=== PATIENT | female | born 1980 | race African-American/Black ===

== ENCOUNTER 2021-02-07 19:08 | Emergency (ER) | payer OTHER, SELFPAY ==
--- NOTE | ~2021-02-07 | XR_ITS ---
XR chest 1V portable DATE: 02/07/2021 20:12 INDICATION: Shortness of breath, cough, worsening over past 3 days. Covid. TECHNIQUE: Portable upright AP chest on 02/07/2021 COMPARISON: None FINDINGS: There are patchy bilateral pulmonary infiltrates involving the mid and lower lung zones, le ft greater than right, consistent with multifocal bilateral pneumonia, likely secondary to Covid pneu monia. No pleural effusion or pulmonary vascular congestion or pneumothorax is detected. Heart size appears normal. Included skeletal structures are unremarkable. IMPRESSION: Patchy bilateral pulmonary infiltrates, likely secondary to Covid pneumonia Reviewed, dictated and finalized at [facility]. IMPRESSION: Patchy bilateral pulmonary infiltrates, likely secondary to Covid p neumonia
[2021-02-07 19:20] VITALS: BP 149/87; PULSE 86; RESP 19; TEMP 36.8; O2SAT 98
--- NOTE | 2021-02-07 19:43 | ED.GENADULT ---
HPI - General Adult General Chief complaint: Shortness of Breath/Dyspnea Stated complaint: diff breathing/covid x 9 days Time Seen by Provider: 02/07/21 19:42 Source: patient Mode of arrival: ambulatory Limitations: no limitations History of Present Illness HPI narrative: Patient is here and very anxious regarding her Covid symptoms. She has a persistent cough that is productive. She states that she is afraid to lay down to sleep at night. Her primary symptoms are cough and loss of taste, she has no fever. Her oxygen level was within normal limits here. She has been taking [id number] medications such as Mucinex and cough syrup. She has no primary care physician. Related Data Allergies Allergy/AdvReac Type Severity Reaction Status Date / Time No Known Allergies Allergy Verified 02/07/21 19:45 Review of Systems Review of Systems: All systems reviewed & are unremarkable except as noted in HPI and below PMFSH Social History Social History Gender identity (if verbalized by the patient): Female Exam Const: General: healthy appearing and alert Nutritional Appearance: obese Orientation/consciousness: patient oriented x3 Other: Anxious HENMT: Head: normal to inspection Eyes: Pupils: Equal, round and reactive pupils present Resp: Effort & Inspection: labored Auscultation: clear to auscultation bilaterally Cardio: Rate: regular rate Rhythm: regular rhythm Skin: General skin exam: normal color Neuro: General: patient oriented x3 Extrem: General: normal to inspection Psych: Affect: Anxious affect present Course Course Emergency Course: CXR consistent with COVID pneumonia. Will instruct in use of albuterol inhaler and order Decadron. Vital Signs Vital signs: Vital Signs Temperature 36.8 C 02/07/21 19:20 Pulse Rate 86 02/07/21 19:20 Respiratory Rate 19 02/07/21 19:20 Blood Pressure 149/87 H 02/07/21 19:20 Pulse Oximetry 98 02/07/21 19:20 Temperature 36.8 C 02/07/21 19:20 Pulse Rate 86 02/07/21 19:20 Respiratory Rate 19 02/07/21 19:20 Blood Pressure 149/87 H 02/07/21 19:20 Pulse Oximetry 98 02/07/21 19:20 Medical Decision Making Vital Signs Vital Signs: Vital Signs Temperature 36.8 C 02/07/21 19:20 Pulse Rate 86 02/07/21 19:20 Respiratory Rate 19 02/07/21 19:20 Blood Pressure 149/87 H 02/07/21 19:20 Pulse Oximetry 98 02/07/21 19:20 Temperature 36.8 C 02/07/21 19:20 Pulse Rate 86 02/07/21 19:20 Respiratory Rate 19 02/07/21 19:20 Blood Pressure 149/87 H 02/07/21 19:20 Pulse Oximetry 98 02/07/21 19:20 Discharge Plan Discharge Clinical Impression: Pneumonia due to 2019 novel coronavirus Patient Disposition: Home, Self-Care Condition: Improved Instructions: Antibiotic Form, COVID-19 (Coronavirus Disease 2019) (ED) Additional Instructions: Continue to use good hand hygiene and cover your face when you are around people who are not positive. Use your inhaler every 4-6 hours for the next 24 hours then as needed for shortness of breath, use as directed on the prescription and with your spacer. Complete your Decadron course. Follow-up with your primary care physician, if you do not have one I have listed 1 below for you to call and establish primary care. Prescriptions: New albuterol sulfate 90 mcg/actuation HFA aerosol inhaler 2 puff inhalation QID PRN (Reason: shortness of breath or wheezing) Qty: 8.5 RF: 0 dexamethasone [Decadron] 6 mg tablet 6 mg PO DAILY Qty: 5 RF: 0 Follow-up/Referrals: Jefry Best MD [Physician] - PHYSICIAN,CONFIGURATION MANAGEMENT CONSULTANT [Primary Care Provider] - Time of Disposition: 21:00
[2021-02-07 19:56] VITALS: O2SAT 99
[2021-02-07] MEDS: ALBUTEROL SULFATE NEB 2.5 MG/3 ML INH INHALATION (20:54)
[2021-02-07 20:55] VITALS: PULSE 68; RESP 24
[2021-02-07 21:13] VITALS: BP 137/96; PULSE 87; RESP 14; TEMP 36.6; O2SAT 98
== END 2021-02-07 21:16 | disposition home or self-care (01) ==
PROVIDERS: Emergency Provider Family Medicine
DX: U07.1 COVID-19 (principal); J12.82 Pneumonia due to coronavirus disease 2019
CPT/HCPCS: 71045; 94640; 99283

== ENCOUNTER 2021-03-05 08:44 | Outpatient (CLI) | payer OTHER, SELFPAY ==
--- NOTE | ~2021-03-05 | MM_ITS ---
EXAMINATION: MM screening radha BI w jolie HISTORY: Screening TECHNIQUE: Craniocaudal and mediolateral oblique 3-D tomosynthesis images were obtained and synthetic 2-D images were generated. CAD analysis was submitted and interpreted. COMPARISON: No prior mammogram is available for comparison at this institution. BREAST PARENCHYMAL COMPOSITION: There are scattered areas of fibroglandular density. FINDINGS: There is no mammographic evidence for malignancy in the right breast. There are focal asymm etries in the upper outer quadrant of the left breast with adjacent architectural distortion. IMPRESSION: 1. Focal left breast asymmetries with adjacent architectural distortion, upper outer quadrant of the left breast, middle third. 2. Additional mammographic views and possible breast ultrasound are recommended. BI-RADS Category 0: Incomplete: Needs additional imaging evaluation. Reviewed, dictated and finalized at location [facility]. IMPRESSION: 1. Focal left breast asymmetries with adjacent architectural distortion, upper outer quadrant of the left breast, middle third. 2. Additional mammographic views and possible breast ultrasound are recommended . BI-RADS Category 0: Incomplete: Needs additional imaging evaluation.
== END 2021-03-05 08:45 | disposition home or self-care (01) ==
LOC: ANHIMG 08:50
PROVIDERS: PCP Family Medicine
DX: Z12.31 Encounter for screening mammogram for malignant neoplasm of breast (principal); R92.8 Other abnormal and inconclusive findings on diagnostic imaging of breast
CPT/HCPCS: 77063; 77067

== ENCOUNTER 2021-03-21 12:38 | Outpatient (CLI) | payer OTHER, SELFPAY ==
--- NOTE | ~2021-03-21 | MMUS_ITS ---
EXAMINATION: MM diagnostic radha LT w jolie, US breast LT limited HISTORY: Follow-up left breast asymmetry TECHNIQUE: Additional 3-D tomosynthesis images of the left breast were performed and synthetic 2-D im ages were generated. CAD analysis was submitted and interpreted. High resolution Limited left breast ultrasound was performed. COMPARISON: 03/05/2021 BREAST PARENCHYMAL COMPOSITION: Breast composed of scattered areas of fibroglandular density. FINDINGS: MAMMOGRAPHIC FINDINGS: There is persistent focal asymmetry in the upper outer quadrant of the left breast, although no discr ete mass is identified. No suspicious calcifications. ULTRASOUND: Limited left breast ultrasound: At 2:00, 9 cm from the nipple, there is an oval hypoechoic mass with circumscribed margins. There are some areas of angular margins. This mass measures 9 x 8 x 5 mm witho ut posterior features or internal vascularity. At 12:00, 4 cm from the nipple, there is a 4 mm cyst. IMPRESSION: 1. Oval hypoechoic left breast mass at 2:00, 9 cm from the nipple measuring 9 mm maximum dimension. 2. Ultrasound-guided left breast biopsy recommended. BI-RADS category 4, suspicious findings. Reviewed, dictated and finalized at location [facility]. IMPRESSION: 1. Oval hypoechoic left breast mass at 2:00, 9 cm from the nipple measuring 9 m m maximum dimension. 2. Ultrasound-guided left breast biopsy recommended. BI-RADS category 4, suspicious findings.
== END 2021-03-21 12:39 | disposition home or self-care (01) ==
PROVIDERS: PCP Family Medicine; Visit Provider Family Medicine
DX: N63.21 Unspecified lump in the left breast, upper outer quadrant (principal); N60.02 Solitary cyst of left breast
CPT/HCPCS: 76642; 77061; 77065; G0279

== ENCOUNTER 2021-04-11 08:47 | Outpatient (CLI) | payer OTHER, SELFPAY ==
--- NOTE | ~2021-04-11 | US_ITS ---
Consultation US DATE: 04/11/2021 09:59 INDICATION: The patient was scheduled for ultrasound-guided biopsy of a circumscribed parallel oval 2 :00 9 cm from nipple mass measuring 9 x 8 x 5 mm without posterior features or internal vascularity. TECHNIQUE: Real-time imaging targeted to area of concern at 2:00 9 cm from nipple COMPARISON: 03/21/2021 diagnostic left mammogram and limited left breast ultrasound FINDINGS: A circumscribed heterogeneous parallel oval solid lesion of 7.4 x 3.9 x 7.4 mm dimension is noted at 2:00 9 cm from nipple; this is smaller compared to 9.2 x 4.5 x 7.9 mm measurements on the left breast ultrasound examination. Diminished size since 03/21/2021 is suggestive of benign process. IMPRESSION: BI-RADS Category 3: Probably benign findings Recommendation: 6 month targeted left breast ultrasound follow-up Reviewed, dictated and finalized at [facility]. Reviewed, dictated and finalized at [facility].
== END 2021-04-11 08:48 | disposition home or self-care (01) ==
PROVIDERS: PCP Family Medicine; Visit Provider Nurse Practitioner Family
DX: R92.8 Other abnormal and inconclusive findings on diagnostic imaging of breast (principal)
CPT/HCPCS: 99199

== ENCOUNTER 2025-01-13 10:56 | Inpatient (IN) | payer OTHER, MEDICAID, SELFPAY ==
[2025-01-13] VITALS (18 sets, daily range): BP systolic 117–132; BP diastolic 56–104; PULSE 78–94; RESP 10–19; TEMP 36.2–36.9; O2SAT 90–100
--- NOTE | ~2025-01-13 | XR_ITS ---
EXAM/PROCEDURE: XR chest 2V - 01/13/2025 12:50 CDT HISTORY: 44 years old Female with pre-syncope TECHNIQUE: Two view(s) of the chest. COMPARISON: None available. FINDINGS: LUNGS/ PLEURA: No focal consolidation. No appreciable pneumothorax or large pleural effusion. HEART/ MEDIASTINUM: Heart appears normal in size. BONES: No acute osseous abnormality. OTHER: Visualized upper abdomen is unremarkable. IMPRESSION: No acute process. Reviewed, dictated and finalized at location A. IMPRESSION: No acute process.
--- NOTE | ~2025-01-13 | CT_ITS ---
EXAMINATION: CTA chest PE abdomen pel DATE: 01/13/2025 16:09 INDICATION: Presyncope. Recent surgery. Elevated d-dimer. TECHNIQUE: Computed tomography (CT) pulmonary angiogram of the chest was performed with 100 mL Omnipa que-350 intravenous contrast. Additional 3D reconstructions utilizing coronal maximum intensity proje ction (MIP) were performed. CT of the abdomen and pelvis was performed with intravenous contrast util izing the same contrast bolus following a short delay. Automated exposure control and iterative recon struction technique were employed. The dose-length product was 1980.03 mGy-cm. COMPARISON: None FINDINGS: Chest: No pulmonary embolism. Mild dependent atelectasis in the bilateral lower lobes. Calcified left lower lobe nodule consistent with old granulomatous disease. No pneumonia, pulmonary edema, pleu ral effusion or pneumothorax. Heart size is normal. No pericardial effusion. Thoracic aorta is normal in caliber with no dissection. No pathologically enlarged thoracic lymphadenopathy. Mild to moderate thoracic spondylosis with chronic appearing minimal anterior wedging of a few mid to lower thoracic vertebral bodies. Abdomen/pelvis: Liver, gallbladder, spleen, pancreas, bilateral adrenal glands and kidneys are normal. Bowels includi ng the appendix are normal. Bladder, anteverted uterus and bilateral adnexa are unremarkable. No free intraperitoneal gas or fluid. No pathologically enlarged abdominal or pelvic lymphadenopathy. There are prominent postoperative changes along the anterior abdominal wall including likely correction val or rectus diastases. Extensive subcutaneous edema about the anterior abdominal wall. There are promin ent loculated fluid collections within the deep subcutaneous tissues along the left and right anterol ateral abdominal tobias. The larger on the left measures 18.3 x 7.2 x 11.9 cm and the smaller on the r ight measures 11.2 x 4.8 x 6.0 cm consistent with postoperative hematoma/seromas although differentia l would include abscess in the appropriate clinical setting. There are significant smaller fluid leonor ections in the intra-abdominal fat near the umbilicus and in the suprapubic region. 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 IMPRESSION: 1. No pulmonary embolism or other acute cardiopulmonary disease. 2. Postoperative changes along the anterior abdominal wall including likely correction of prior rectu s diastases with couple large loculated fluid collections in the deep subcutaneous tissues at the ant erolateral left and right abdominal wall most likely representing a postoperative hematoma/seromas al though differential would include abscess in the appropriate clinical setting. 2. No acute intra-abdominal/pelvic process. Reviewed, dictated and finalized at location A. IMPRESSION: 1. No pulmonary embolism or other acute cardiopulmonary disease. 2. Postoperative changes along the anterior abdominal wall including likely cor rection of prior rectus diastases with couple large loculated fluid collections in the deep subcutaneous tissues at the anterolateral left and right abdominal wall most likely representing a postoperative hematoma/seromas although differ ential would include abscess in the appropriate clinical setting. 2. No acute intra-abdominal/pelvic process.
--- NOTE | ~2025-01-13 | CT_ITS ---
EXAM: CT brain wo con - 01/13/2025 13:20 CDT History: 44 years old Female with headache COMPARISON: None available. PROCEDURE: CT of the head without contrast. Axial, sagittal and coronal reformatted planes were paul luated. Automatic exposure control was used for this study. FINDINGS: BRAIN PARENCHYMA: No acute hemorrhage. No mass effect or herniation. Amanda-white matter differentiatio n is maintained. Normal appearance of cortex. VENTRICLES/ EXTRA-AXIAL SPACES: No hydrocephalus or extra-axial fluid collection. EXTRACRANIAL STRUCTURES: No calvarial fracture. IMPRESSION: No evidence for acute intracranial hemorrhage or calvarial fracture. Reviewed, dictated and finalized at location A.
--- NOTE | ~2025-01-13 | CT_ITS ---
EXAMINATION: CT abdomen pelvis w con DATE: 01/16/2025 15:52 INDICATION: abdominal pain TECHNIQUE: Computed tomography (CT) of the abdomen and pelvis was performed with 100 mL Omnipaque-350 intravenous contrast. Automated exposure control and iterative reconstruction technique were employe d. The dose-length product was 1117.01 mGy-cm. COMPARISON: None. FINDINGS: Lower thorax: Unremarkable Liver: Mildly enlarged. Biliary/Gallbladder: Gallbladder is normal. No bile duct dilation. Pancreas: No mass or duct dilation. Spleen: Normal. Adrenals:No mass. Kidneys: No suspicious mass, obstructing stone, or hydronephrosis. GI tract: Mild distal esophageal and gastric wall edema. No small or large bowel dilation. Normal basil endix. Mesentery/Peritoneum: No ascites, mass, or free air. Retroperitoneum: No mass. Pelvis: Pelvic organs are within normal limits. Soft Tissues: Postsurgical changes in the midline anterior abdominal wall, presumably secondary to re ctus diastases correction. Moderate subcutaneous edema in the bilateral anterolateral lower abdominal wall with dermal thickening, extending along the anterolateral left hip. Large subcutaneous fluid co llections over the left lower anterolateral and right lateral abdominal wall, increased in size, with increased peripheral enhancement. Bones: No acute osseous finding. IMPRESSION: Mild esophagitis/gastritis. Mild hepatomegaly. Increasing size of the bilateral subcutaneous fluid collections over the left lower anterolateral and right lateral abdomen, with increased peripheral enhancement. These may represent postoperative sero mas/hematomas versus developing abscess. Increasing dermal thickening and subcutaneous stranding over the bilateral lower anterolateral abdome n, correlate for signs of cellulitis. Reviewed, dictated and finalized at location K. IMPRESSION: Mild esophagitis/gastritis. Mild hepatomegaly. Increasing size of the bilateral subcutaneous fluid collections over the left l ower anterolateral and right lateral abdomen, with increased peripheral enhance ment. These may represent postoperative seromas/hematomas versus developing abs cess. Increasing dermal thickening and subcutaneous stranding over the bilateral lowe r anterolateral abdomen, correlate for signs of cellulitis.
--- NOTE | ~2025-01-13 | US_ITS ---
EXAMINATION: US percutaneous drain w cath, US percutaneous drain w cath DATE: 01/17/2025 13:59 (accession [id number]), 01/17/2025 14:00 (accession [id number]) INDICATION: Increasing size of left and right lower quadrant abdominal wall subcutaneous hematoma/ser omas. TECHNIQUE: The procedure including the risks and benefits was discussed with the patient. Risks discu ssed included bleeding including hemorrhage and bile peritonitis. Oral and written consent were obtai stevie. [employer] sonographic images were obtained. Attention was first turned to the left lower quadrant ab dominal wall fluid collection. The skin overlying the fluid collection was prepped and draped in usua l sterile fashion. Anesthetic was administered with 1% lidocaine subcutaneously. A 10 Fr catheter was inserted into the fluid collection by trocar technique utilizing continuous sonographic observation. The metal stiffener and trocar needle were removed, and the pigtail tip was formed and locked. Fluid was aspirated and sent for culture. The catheter was stitched to the skin with suture. Antibiotic oi ntment and a sterile dressing were applied along with an additional adhesive fixation device. The cat heter was attached to suction drainage and was draining additional fluid at the conclusion of the pro cedure. Attention was then turned to the right lower quadrant anterior abdominal wall fluid collection. The s kin overlying the fluid collection was prepped and draped in usual sterile fashion. Anesthetic was ad ministered with 1% lidocaine subcutaneously. A 10 Fr catheter was inserted into the fluid collection by trocar technique utilizing continuous sonographic observation. The metal stiffener and trocar need le were removed, and the pigtail tip was formed and locked. Fluid was aspirated and sent for culture. The catheter was stitched to the skin with suture. Antibiotic ointment and a sterile dressing were a pplied along with an additional adhesive fixation device. The catheter was attached to suction draina ge and was draining additional fluid at the conclusion of the procedure. There were no immediate comp lications. FINDINGS: There are anechoic loculated fluid collections in the subcutaneous fat at the anterolateral left and right lower quadrants. The collection on the left is slightly bigger measuring least 18 x 9 cm. The c ollection on the right measures at least 12.5 x 5.0 centimeter. Subsequent ultrasound images demonstr ate the formed loop of the catheters within both the left right lower quadrant subcutaneous fluid col lections. IMPRESSION: 1. Successful ultrasound-guided left lower quadrant anterior abdominal wall percutaneous abscess drai nage catheter placement. 2. Successful ultrasound-guided right lower quadrant anterior abdominal wall percutaneous abscess laurie inage catheter placement. 3. 20 mL bile of reddish-brown fluid collection was aspirated from each fluid collection and sent to the lab for Gram stain and aerobic and anaerobic cultures. 3. The catheter will be managed by Dr. Fernandez. Reviewed, dictated and finalized at location A. IMPRESSION: 1. Successful ultrasound-guided left lower quadrant anterior abdominal wall per cutaneous abscess drainage catheter placement. 2. Successful ultrasound-guided right lower quadrant anterior abdominal wall pe rcutaneous abscess drainage catheter placement. 3. 20 mL bile of reddish-brown fluid collection was aspirated from each fluid c ollection and sent to the lab for Gram stain and aerobic and anaerobic cultures . 3. The catheter will be managed by Dr. Fernandez.
--- OUTSIDE RECORDS SUMMARY | 2025-01-13 11:00 | XMS_ITS | Referral Summary ---
Author Organization [facility] at the Medical Office Building Address [address] [place] [id number] Care Team Providers Care Production Team Member Name Role Phone Rigoberto Palacios MD Primary Care Provider [phone] Encounters Date Type Department Care Team Description 12/21/2024 Telephone [facility] Family Medicine at [address] [place] [address] Rigoberto Palacios MD Med Refill 12/13/2024 Telephone [facility] Family Medicine at [address] [place] [address] Rigoberto Palacios MD Medical Question/Miscellaneo us 12/08/2024 Telephone [facility] Medical [facility] Family Medicine at [address] [place] [address] Rigoberto Palacios MD Forms Request; Call Back 12/06/2024 2:50 PM CDT - 12/06/2024 11:59 PM CDT Hospital Encounter [facility] Cardiac Testing [address] [place] [address] Encounter for annual health examination Discharge Disposition: Discharge to home or self care 12/06/2024 2:27 PM CDT - 12/06/2024 11:59 PM CDT Hospital Encounter [facility] Diagnostic Imaging [facility] [place] [address] Encounter for annual health examination Discharge Disposition: Discharge to home or self care 12/02/2024 Results Follow-Up [facility] Medical [facility] Family Medicine at [address] [place] [address] Rigoberto Palacios MD Lipid panel, Urinalysis reflex to microscopic and culture Urine, HIV 1/2 Antibody plus p24 Antigen Blood, Additional followed-up results: 12/01/2024 1:10 PM CDT Lab [facility] Medical Office Bl [address] [place] [address] [address] [place] [address] Encounter for annual health examination; Preop examination 12/01/2024 11:15 AM CDT Office Visit [facility] Medical [facility] Family Medicine at [address] [place] [address] Rigoberto Palacios MD Encounter for annual health examination (Primary Dx); Class 1 obesity due to excess calories with serious comorbidity and body mass index (BMI) of 33.0 to 33.9 in adult; Preop examination 11/30/2024 1:35 PM CDT - 11/30/2024 11:59 PM CDT Hospital Encounter [facility] Medical Office Bl 1 Breast [facility] [address] [facility] [address] [place] [address] Unspecified lump in the left breast, upper outer quadrant Discharge Disposition: Discharge to home or self care from Last 3 Months Allergies No known active allergies Medications tirzepatide (Mounjaro) 5 mg/0.5 mL pen injector injection Inject 0.5 mL (5 mg total) under the skin every 7 days Active phentermine 37.5 mg capsuleIndicatio ns:Class 1 obesity due to excess calories with serious comorbidity and body mass index (BMI) of 33.0 to 33.9 in adult Take 1 capsule (37.5 mg total) by mouth every morning 90 capsule 1 5 05/30/20 25 Active acetaminophen-co deine (TYLENOL with CODEINE #3) 300-30 mg per tablet Take 1-2 tablets by mouth every 6 (six) hours as needed for pain for up to 10 days 30 tablet 5 01/01/20 25 Active Problems Problem Noted Date Diagnosed Date Screening for colon cancer 10/05/2024 Class 1 obesity due to exces s calories with serious comorbidity and body mass index (BMI) of 31.0 to 31.9 in adult 07/22/2023 Excess skin of abdominal wall 04/09/2023 Resolved Problems Problem Noted Date Diagnosed Date Resolved Date Abnormal weight gain 05/30/2021 025 Class 2 severe obesity due t o excess calories with serious comorbidity and body mass index (BMI) of 36.0 to 36.9 in adult 05/30/2021 5 Immunizations Immunization Administration Dates Next Due DTP 02/19/1985, 4,03/02/1980,1979, 9 DTaP 08/31/2017 Influenza, Unspecified 03/19/2024(Deferr ed: Patient decision),04/09/2023(Deferred: Patient decision),02/21/2022(Deferred: Patient decision) MMR 07/23/1991,01/24/1983 OPV 02/19/1985, 4,03/02/1980,1979, 9 Social History Tobacco Use Types Packs/Day Years Used Date Smoking Tobacco: Never Smokeless Tobacco: Never Tobacco Cessation:Counseling Given: Not Answered AUDIT-C Answer Date Recorded Q1: How often do you have a drink containing alc ohol? 2-3 times a week 10/07/2024 Q2: How many drinks containi ng alcohol do you have on a typical day when you are drinking? 1 or 2 10/07/2024 Q3: How often do you have si x or more drinks on one occasion? Never 10/07/2024 PHQ-2 Answer Date Recorded PHQ-2 Total Score (If total score is 3 or more points, staff should administer the PHQ-9) 0 12/01/2024 PHQ-9 Answer Date Recorded PHQ-9 Total Score 0 12/01/2024 Personal Safety Answer Date Recorded Have you ever been in or are you currently in a harmful physical or emotional relationship or is someone making you feel afraid or unsafe? Denies 10/29/2023 Comments No Sex and Gender Information Value Date Recorded Sex Assigned at Not on file Legal Sex Female 6:48 PM INSTALLATION COORDINATOR Gender Identity Female 06/28/2021 7:08 AM INSTALLATION COORDINATOR Sexual Orientation Straight 06/28/2021 7: 08 AM INSTALLATION COORDINATOR Last Filed Vital Signs Vital Sign Reading Time Taken Comments Blood Pressure 131/82 12/01/2024 11:40 AM CDT Pulse 67 12/01/2024 11:40 AM CDT Temperature 36.7 C (98 F) 12/01/2024 11:40 AM CDT Respiratory Rate 16 12/01/2024 11:40 AM CDT Oxygen Saturation 97% 12/01/2024 11:40 AM CDT Inhaled Oxygen Concentration - - Weight 93.9 kg (207 lb 1.6 oz) 12/01/2024 11:40 AM CDT Height 167.6 cm (5' 6) 12/01/2024 11:40 AM CDT Body Mass Index 33.43 12/01/2024 11:40 AM CDT Plan of Treatment Not on file Medical Devices Implanted Type Area Volunteer Coordinator Device Identifier Shelf Expiration Date Model / Serial / Lot [employer] Partnership Marker Biospy Site Top Hat Shape Senomark [id number] - [id number] Implanted:Qty: 1 on 08/15/2023 by Kimo Taveras MD at [facility] Left: Breast [employer] [id number] 03/23/2024 SMARK-GERMAINE ERO-2S / / [id number] Explanted Type Area Volunteer Coordinator Device Identifier Shelf Expiration Date Model / Serial / Lot 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 [employer] [place] 20ga 7.5cm 2 Part Stabilizer Repositionable Depth Andre [id number] - [id number] - [id number] Explanted:Qty: 1 on 10/29/2023 at [facility] Left: Breast 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 [id number] 08/20/2028 [id number] / [id number] Procedures Procedure Name Priority Date/Time Associated Diagnosis Comments ECG 12-LEAD Routine 12/06/2024 3:12 PM CDT Encounter for annual health examination XR CHEST PA LATERAL 2 VIEWS Schedule SEFERINO, Read SEFERINO (Appt Today, Awaiting Results) 12/06/2024 2:44 PM CDT Encounter for annual health examination URINALYSIS AND REFLEX TO MICROSCOPIC AND CULTURE Routine 12/01/2024 3:09 PM CDT Preop examination EGFR Routine 12/01/2024 1:14 PM CDT Preop examination TSH Routine 12/01/2024 1:14 PM CDT Preop examination T3, FREE Routine 12/01/2024 1:14 PM CDT Preop examination HEMOGLOBIN A1C Routine 12/01/2024 1:14 PM CDT Preop examination CBC WITHOUT DIFFERENTIAL Routine 12/01/2024 1:14 PM CDT Preop examination APTT Routine 12/01/2024 1:14 PM CDT Preop examination COMPREHENSIVE METABOLIC PANEL Routine 12/01/2024 1:14 PM CDT Preop examination HCG, BLOOD, QUANTITATIVE Routine 12/01/2024 1:14 PM CDT Preop examination PROTIME-INR Routine 12/01/2024 1:14 PM CDT Preop examination LIPID PANEL Routine 12/01/2024 1:14 PM CDT Encounter for annual health examination HIV 1/2 ANTIBODY PLUS P24 ANTIGEN Routine 12/01/2024 1:14 PM CDT Preop examination DIAGNOSTIC MAMMOGRAM BILATERAL W YUSEF Schedule Routine, Read Routine (OP Routine) 11/30/2024 1:52 PM CDT Unspecified lump in the left breast, upper outer quadrant from Last 3 Months Results * ECG 12 lead (12/06/2024 3:12 PM CDT) Ventricular Rate EKG/Min 76 BPM [facility] Atrial Rate 76 BPM [facility] MA-Interval (MSEC) 148 ms [facility] QRS-Interval (MSEC) 86 ms [facility] QT-Interval (MSEC) 400 ms [facility] QTc 450 ms [facility] P [place] 53 degrees [facility] R [place] 19 degrees [facility] T [place] 19 degrees [facility] Diagnosis Normal sinus rhythm Normal ECG No previous ECGs available Confirmed by SULTAN LEON M.D. ([id number]) on 12/07/2024 5:23:44 PM [facility] 12/06/2024 3:12 PM CDT 12/07/2024 5:23 PM CDT us Rigoberto Palacios MD ECG ORDERABLES Final Result [facility] * XR Chest Pa Lateral 2 Views (12/06/2024 2:44 PM CDT) Anatomical Region Laterality Modality Body, Chest N/A Computed Radiogr aphy 12/06/2024 6:20 PM CDT Narrative 12/06/2024 6:21 PM CDT EXAM DESCRIPTION: XR CHEST PA LATERAL 2 VIEWS REASON FOR STUDY: cough Preoperative chest xray for surgery on 12/28/[place]24 [place] abdom[place]oplasty, no chest complaints TECHNIQUE: There are 2 radiographic view(s) of the chest. COMPARISON: No prior. FINDINGS: LUNGS: Pulmonary vascularity appears normal. No infiltrate or effusion. Costophrenic angles are sharp. HEART/MEDIASTINUM: Cardiac silhouette normal in size. Mediastinal and hilar contours appear normal. LINES/TUBES: None. Surgical clip overlies the left lateral chest. There is nipple jewelry. BONES: No acute osseous abnormality. IMPRESSION: No acute cardiopulmonary abnormality. THIS IS AN ELECTRONICALLY VERIFIED FINAL REPORT 12/06/2024 6:21 PM - Electronically signed by Kimo Tavares M.D. MJ T: Report ID: [id number] Reading Location: [id number] Procedure Note Kimo Tavares MD - 12/06/2024 EXAM DESCRIPTION: XR CHEST PA LATERAL 2 VIEWS REASON FOR STUDY: cough Preoperative chest xray for surgery [place]28[place], no chest complaints TECHNIQUE: There are 2 radiographic view(s) of the chest. COMPARISON: No prior. FINDINGS: LUNGS: Pulmonary vascularity appears normal. No infiltrate or effusion. Costophrenic angles are sharp. HEART/MEDIASTINUM: Cardiac silhouette normal in size. Mediastinal andhilar contours appear normal. LINES/TUBES: None. Surgical clip overlies the left lateral chest.There is nipple jewelry. BONES: No acute osseous abnormality. IMPRESSION: No acute cardiopulmonary abnormality. THIS IS AN ELECTRONICALLY VERIFIED FINAL REPORT 12/06/2024 6:21 PM - Electronically signed by Kimo Tavares M.D. MJ T: Report ID: [id number] Reading Location: [place] [address] Rigoberto Palacios MD IMG XR PROCEDURES Final Result * Urinalysis reflex to microscopic and culture Urine (12/01/2024 3:09 PM CDT) Color, ur Yellow Yellow Clarity, ur Clear Clear [facility] Specific gravity, ur 1.023 1.003 - 1.030 [facility]EDA pH, urine 6.5 [facility] Comment: Interpretive Data U rine pH is affected by diet, medications, systemic acid-base disturbances, and renal tubular function. pH may affect urinary stone formation. For example, urine pH below 6.0 may help reduce the tendency for calcium phosphate stones and pH greater than 6.0 may reduce the tendency for uric acid stone formation. Source: [facility] [employer] Current Interpretive Data was last revised on 2017 Protein, ur ql Negative Negative [facility] Glucose, ur ql Negative Negative [facility] Ketones, ur Negative Negative [facility] Bilirubin, ur Negative Negative [facility] Blood, ur Negative Negative [facility] Urobilinogen, ur <2.0 <2.0 mg/dL [facility] Nitrite, ur Negative Negative [facility] Leukocyte esterase, ur Negative Negative [facility] UA reflex comment Reflex conditions for microscopic UA and culture not met. [facility] Urine 12/01/2024 3:0 9 PM CDT 12/01/2024 4:21 PM CDT Narrative RASHEEDA - 12/01/2024 4:32 PM CDT Urine Collection Method->Clean Catch Rigoberto Palacios MD LAB MICROBIOLOGY - GENERAL ORDER CARLI Final Result Performing Organization Address [facility] Co de Phone Number [id number] [address] * eGFR (12/01/2024 1:14 PM CDT) Pathologist [facility] eGFR 83 >=60 mL/min/1. 73 m2 Comment: Interpretive Data Reference Interval Normal >/= 90 mL/min/1.73m2 Mildly decreased* 60 - 89 mL/min/1.73m2 Mildly to moderately decreased 45 - 59 mL/min/1.73m2 Moderately to severely decreased 30 - 44 mL/min/1.73m2 Severely decreased 15 - 29 mL/min/1.73m2 Kidney Failure < 15 mL/min/1.73m2 *Relative to young adult level Estimated glomerular filtration rate is determined by the 2020 CKD-EPI equation recommended by the National Kidney Foundation (A Unifying Approach to GFR Estimation: Recommendations of the NKF-ASK Task Force on Reassessing the Inclusion of Race in Diagnosing Kidney Disease, JASN 202). The CKD-EPI equation should not be used for patients with unstable renal function and has not been validated in children and those over 70. Current interpretive data was last reviewed 2021. Blood 12/01/2024 1:14 PM CDT 12/01/2024 4:25 PM CDT Rigoberto Palacios MD LAB BLOOD ORDERABLES Final Resul t Performing Organization Address [facility] Co de Phone Number [id number] [address] * HIV 1/2 Antibody plus p24 Antigen Blood (12/01/2024 1:14 PM CDT) HIV 1/2 ab + p24 ag Nonreactive Nonreactive Comment:Nonreactive for HIV- 1 antigen and HIV-1/HIV-2 antibodies. No laboratory evidence of HIV infection. If acute HIV infection is suspected, consider testing for HIV-1 RNA. Current interpretive data was last revised on 22. Blood 12/01/2024 1:14 PM CDT 12/01/2024 4:25 PM CDT Rigoberto Palacios MD LAB MICROBIOLOGY - GENERAL ORDER CARLI Final Result Performing Organization Address [facility] de Phone Number [address] [address] * aPTT (12/01/2024 1:14 PM CDT) Pathologist [facility] aPTT 30 22 - 37 sec Comment: Interpretive data aPTT test has not been evaluated for monitoring heparin therapy. The anti-Xa is the preferred test. Current interpretive data was last revised on 2019. Blood 12/01/2024 1:14 PM CDT 12/01/2024 4:25 PM CDT Rigoberto Palacios MD LAB BLOOD ORDERABLES Final Resul t Performing Organization Address [facility] de Phone Number [address] [address] * (ABNORMAL) Protime-INR (12/01/2024 1:14 PM CDT) Pathologist [facility] PT 11.9(L) 12.0 - 14.6 sec Comment:Ref Range Low INR 0.9 0.9 - 1.2 [facility] Comment: Ref Range High Interpretive data Oral anticoagulant therapeutic ranges: Venous thromboembolism prophylaxis or treatment: 2.0-3.0 CARDIOLOGY Standard range: 2.0-3.0 High-intensity range: 2.5-3.5 Refer to indication-specific guidelines for appropriate target ranges for prosthetic heart valve replacement. Current interpretive data was last revised on 2019. Blood 12/01/2024 1:14 PM CDT 12/01/2024 4:25 PM CDT Rigoberto Palacios MD LAB BLOOD ORDERABLES Final Resul t Performing Organization Address [facility] Co de Phone Number RASHEEDA [address] [place] [place] [address] * (ABNORMAL) CBC without differential (12/01/2024 1:14 PM CDT) [facility] WBC 6.53 3.80 - 9.90 K/cumm Hgb 11.7(L) 11.9 - 15.5 g/dL [facility] Hct 38.9 35.6 - 45.5 % [facility] Plt 394 150 - 400 K/cumm [facility] MPV 10.4 9.1 - 12.3 fL [facility] RBC 4.59 3.90 - 5.20 M/cumm [facility] MCV 84.7 81.3 - 96.4 fL [facility] MCH 25.5(L) 27.1 - 33.3 pg [facility] MCHC 30.1(L) 32.3 - 35.7 g/dL [facility] RDW CV 17.0(H) 11.1 - 14.9 % [facility] RDW SD 51.7(H) 35.7 - 48.1 fL [facility] NRBC abs 0.00 0.00 - 0.01 K/cumm [facility] Blood 12/01/2024 1:14 PM CDT 12/01/2024 4:25 PM CDT Rigoberto Palacios MD LAB BLOOD ORDERABLES Final Resul t Performing Organization Address [facility] Co de Phone Number RASHEEDA [address] [place] [address] * hCG, blood, quantitative (12/01/2024 1:14 PM CDT) [facility] hCG, quant <5.0 0.0 - 5.0 IUnits/L Comment: Interpretive Data Male: < 5 IU/L Non- premenopausal Female: <5 IU/L The Roxana hCG Beta Quant assay procedure was used. Results from different manufacturers or methods may not be comparable. Serial testing should be performed using the same method. Interpretive Data was last revised on 2023 Blood 12/01/2024 1:14 PM CDT 12/01/2024 4:25 PM CDT Rigoberto Palacios MD LAB BLOOD ORDERABLES Final Resul t Performing Organization Address City/[facility] Co de Phone Number [address] [place] [address] * T3, free (12/01/2024 1:14 PM CDT) Pathologist [facility] Free T3 2.4 2.0 - 4.4 pg/mL Blood 12/01/2024 1:14 PM CDT 12/01/2024 4:25 PM CDT Rigoberto Palacios MD LAB BLOOD ORDERABLES Final Resul t Performing Organization Address [facility] de Phone Number [address] [employer] [place] [address] * TSH (12/01/2024 1:14 PM CDT) Pathologist [facility] Thyroid Stimulating Hormone 0.93 0.30 - 4.20 mcIUnit/mL Blood 12/01/2024 1:14 PM CDT 12/01/2024 4:25 PM CDT Rigoberto Palacios MD LAB BLOOD ORDERABLES Final Resul t Performing Organization Address [facility] Co de Phone Number [address] [place] [address] * Hemoglobin A1c (12/01/2024 1:14 PM CDT) Hgb A1C 5.5 4.0 - 5.6 % Estimated Average Glucose 111 mg/dL RASHEEDA Comment: The ADA recommends reporting an estimated Average Glucose (eAG) with all Hemoglobin A1c results using the equation derived from a study of 507 normal and diabetic adults. Minority populations were underrepresented and children were not included. (Diabetes Care 31:2519-9450, 2008). The eAG is not equivalent to a fasting glucose. Blood 12/01/2024 1:14 PM CDT 12/01/2024 4:25 PM CDT Rigoberto Palacios MD LAB BLOOD ORDERABLES Final Resul t [facility] [address] [facility] [place] [address] * Lipid panel (12/01/2024 1:14 PM CDT) Cholesterol 166 30 - 199 mg/dL Comment: Interpretive Data Ages < or = 19 years Acceptable: <170 mg/dL Borderline high: 170-199 mg/dL High: >or= 200 mg/dL Ages > or = 20 years Desirable: <200 mg/dL Borderline high: 200-239 mg/dL High: >or= 240 mg/dL Literature References: 1. Expert Panel on Integrated Guidelines for Cardiovascular Health and Risk Reduction in Children and Adolescents. Pediatrics 2011;128:S213 2. NCEP Expert Panel. Circulation 2004;110:227 Current Interpretive Data was last revised on 2018. Triglycerides 92 <=149 mg/dL [facility]RE[facility]ER Comment: Interpretive Data Ages < or = 9 years Acceptable: <75 mg/dL Borderline high: 75-99 mg/dL High: >or= 100 mg/dL Ages 10 to 20 years Acceptable: <90 mg/dL Borderline high: 90-129 mg/dL High: >or= 130 mg/dL Ages > or = 20 years Desirable: <150 mg/dL Borderline high: 150-199 mg/dL High: 200-499 mg/dL Very high: >or= 499 mg/dL Literature References: 1. Expert Panel on Integrated Guidelines for Cardiovascular Health and Risk Reduction in Children and Adolescents. Pediatrics 2011;128:S213 2. NCEP Expert Panel. Circulation 2004;110:227 Current Interpretive Data was last revised on 2018. HDL 64 >=40 mg/dL [facility]ER Comment: Interpretive Data Ages < or = 19 years Acceptable: >45 mg/dL Borderline low: 40-45 mg/dL Low: <40 mg/dL Ages > or = 20 years Desirable: >or= 60 mg/dL Low: <40 mg/dL Literature References: 1. Expert Panel on Integrated Guidelines for Cardiovascular Health and Risk Reduction in Children and Adolescents. Pediatrics 2011;128:S213 2. NCEP Expert Panel. Circulation 2004;110:227 Current Interpretive Data was last revised on 2018. LDL, calculated 85 <=129 mg/dL [facility] Comment: Interpretive Data Ages < or = 19 years Acceptable: <110 mg/dL Borderline high: 110-129 mg/dL High: >or= 130 mg/dL Ages > or = 20 years Optimal: <100 mg/dL Near optimal: 100-129 mg/dL Borderline high: 130-159 mg/dL High: >160 mg/dL Calculated using the Vijay LDL-C estimating equation. This equation was implemented on 2024. Prior to this date LDL-C was estimated using the Friedewald equation. Literature References: 1. Expert Panel on Integrated Guidelines for Cardiovascular Health and Risk Reduction in Children and Adolescents. Pediatrics 2011;128:S213 2. NCEP Expert Panel. Circulation 2004;110:227 3. Vijay Aguero et al. ANDREW Cardiol. 2019October 21;5(5):540-548. doi: 10.1001/jamacardio.2020.0013 Current Interpretive Data was last revised on 2024. Non-HDL Cholesterol 102 mg/dL RASHEEDA Comment: Interpretive Data Ages < or = 19 years Acceptable: <120 mg/dL Borderline high: 120-144 mg/dL High: >145 mg/dL Ages > or = 20 years When triglycerides are >200 mg/dL, Non-HDL cholesterol is a secondary target of therapy with treatment goals that are 30 mg/dL greater than the LDL cholesterol target. Literature References: 1. Expert Panel on Integrated Guidelines for Cardiovascular Health and Risk Reduction in Children and Adolescents. Pediatrics 2011;128:S213 2. NCEP Expert Panel. Circulation 2004;110:227 Current Interpretive Data was last revised on 2018. Chol/HDL ratio 3 RASHEEDA Blood 12/01/2024 1:14 PM CDT 12/01/2024 4:25 PM CDT Rigoberto Palacios MD LAB BLOOD ORDERABLES Final Resul t [facility] [address] [facility] Department [place] [address] * (ABNORMAL) Comprehensive metabolic panel (12/01/2024 1:14 PM CDT) Sodium 138 135 - 145 mmol/L Potassium, pl 4.5 3.3 - 4.9 mmol/L [facility] Chloride 105 97 - 110 mmol/L [facility] CO2 21(L) 22 - 32 mmol/L [facility] Anion gap 12 2 - 15 mmol/L [facility] BUN 11 6 - 25 mg/dL [facility] Creatinine 0.88 0.60 - 1.10 mg/dL [facility] Glucose 98 70 - 199 mg/dL [facility] Comment: Interpretive Data Fasting glucose >/= 126 mg/dl is diagnostic for diabetes. Fasting is defined as no caloric intake for at least 8 hours. Fasting glucose between 100 mg/dl to 125 mg/dl is diagnostic of prediabetes. In a patient with classic symptoms of hyperglycemia or hyperglycemic crisis, a random glucose >/= 200 mg/dl is diagnostic for diabetes. In the absence of unequivocal hyperglycemia, results should be confirmed by repeat testing. The classification and Diagnosis of Diabetes Diabetes Care 202; 46: S19-S40. Current interpretive data was last revised 2022. Calcium 9.3 8.5 - 10.3 mg/dL [facility] Bilirubin, total <0.2 0.1 - 1.2 mg/dL [facility] Protein, pl 8.4 6.5 - 8.5 g/dL [facility] Albumin 4.1 3.5 - 5.0 g/dL [facility] Alk phos 51 40 - 130 Units/L [facility] ALT 7 7 - 45 Units/L [facility] AST 24 10 - 45 Units/L [facility] Blood 12/01/2024 1:14 PM CDT 12/01/2024 4:25 PM CDT Rigoberto Palacios MD LAB BLOOD ORDERABLES Final Resul t [facility] [address] [facility] Department of Laboratories [place], [place] [id number] * Diagnostic Mammogram Bilateral W Yusef (11/30/2024 1:52 PM CDT) Anatomical Region Laterality Modality Breast Bilateral Mammography 11/30/2024 4:48 PM CDT Impressions 11/30/2024 4:48 PM CDT No imaging findings to suggest malignancy are seen. The patient may return to screening mammography as per ACR guidelines. OVERALL FINAL ASSESSMENT: BI-RADS 2 - Benign findings. Electronically signed by: Dianne Quiroz M.D. Narrative 11/30/2024 4:48 PM CDT EXAMINATION: DIGITAL DIAGNOSTIC BILATERAL MAMMOGRAM INCLUDING CAD AND DIGITAL BREAST TOMOSYNTHESIS HISTORY: Follow-up left sided biopsy COMPARISON: 2023 and 2020 TECHNIQUE: Digital mammographic views of the bilateral breast(s) were performed, including digital breast tomosynthesis (DBT). Computer aided detection (CAD) was utilized. BREAST PARENCHYMAL COMPOSITION: There is scattered fibroglandular tissue. MAMMOGRAM FINDINGS: Postop changes are seen on the left with a surgical clip present. No suspicious masses are seen. No suspicious calcifications are seen. There is no unexplained architectural distortion. There is no skin thickening. No axillary adenopathy is seen mammographically. Kimo Taveras MD IMG MAMMO PROCEDURES Final Res ult from Last 3 Months Insurance [facility] IDPA IDPA Advance Directives For more information, please contact: [phone] * Full Code (Latest Code Status on File) Date Activated Date Inactivated Comments 10/29/2023 10:27 AM 10/29/2023 4:43 PM Care Teams Production Team Member Relationship Specialty Start Date End Date Rigoberto Palacios MD [address] [place] [address] PCP - General Family Medicine 12/11/22
--- OUTSIDE RECORDS SUMMARY | 2025-01-13 11:00 | XMS_ITS | Encounter Summary ---
Author Organization [facility] Healthcare Address [address] [place] [address] Care Team Providers Care Janitorial Assistant Name Role Phone Rigoberto Palacios MD Primary Care Provider [phone] Encounter Details Date Type Department Care Team (Late st Contact Info) Description 12/02/2024 Results Follow-Up [facility] Family Medicine at [address] [place] [address] Rigoberto Palacios MD [address] [place] [address] [address] [place] [address] Lipid panel, Urinalysis reflex to microscopic and culture Urine, HIV 1/2 Antibody plus p24 Antigen Blood, Additional followed-up results: 10 Social History Tobacco Use Types Packs/Day Years Used Date Smoking Tobacco: Never Smokeless Tobacco: Never AUDIT-C Answer Date Recorded Q1: How often [...] on file Legal Sex Female 6:48 PM 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
--- OUTSIDE RECORDS SUMMARY | 2025-01-13 11:00 | XMS_ITS | Encounter Summary ---
Author Organization [facility] Healthcare Address [address] [place] [address] Care Team Providers Care Rn Immunology Name Role Phone Rigoberto Palacios MD Primary Care Provider Reason for Visit * Reason Onset Date Comments Medical Question/Miscellaneous 12/13/2024 Encounter Details Date Type Department Care Team (Late st Contact Info) Description 12/13/[address] 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 She did not understand why she needs to come to office and sigh a HIPAA form whensome of her records were already fax to [facility] * Telephone Encounter - Sun James - 12/13/2024 9:40 AM CDT Call Back Caller???s Concern: Pt calling back as she missed call from Richa. Relayed message below and pt request to speak with her for reasoning why Warm transferred to back line Does message need to be routed? No Reason for Warm Transfer: Patient returning call from practice Practice Accepted the Warm Transfer? Yes Additional Comments If YES above, and no barriers. * Telephone Encounter - Richa Ray - 12/13/2024 9:29 AM CDT Called LVM that we would needs a release of Information for signed by her to send that information to the clinic. I told her that it would be in her MY chart if she wanted to sent it to them. * Telephone Encounter - Gabby Parikh - 12/13/2024 8:23 AM CDT Medical Question/Miscellaneous Caller???s Concern: Patient is calling to request that a copy of her recent urinalysis and UKG be faxed to [facility] at [phone] as soon as possible. Patient is requesting a call back once this has been done. Sending high priority Does message need to be routed? Yes-Action Needed documented in this encounter Plan of Treatment Not on file documented as of this encounter Visit Diagnoses Not on filedocumented in this encounter Care Teams Rn Immunology Relationship Specialty Start Date End Date Rigoberto Palacios MD [address] [facility] [address] [address] PCP - General Family Medicine 12/11/22 documented as of this encounter
--- OUTSIDE RECORDS SUMMARY | 2025-01-13 11:00 | XMS_ITS | Clinical Summary ---
Author Organization [facility] Address [address] [place] [address] Care Team Providers Care Animal Handler Name Role Phone Rigoberto Palacios MD Primary Care Provider [phone] Allergies No known active allergies Medications tirzepatide [...] of 36.0 to 36.9 in adult 05/30/2021 Encounters Date Type Department Care Team Description 12/21/2024 Telephone [facility] Medical [facility] Family Medicine at [address] [address] Rigoberto Palacios MD Med Refill 12/13/2024 Telephone [facility] Family Medicine at [address] [address] Rigoberto Palacios MD Medical Question/Miscellaneo us 12/08/2024 Telephone [facility] Medicine at [address] [address] Rigoberto Palacios MD Forms Request; Call Back 12/06/2024 2:50 PM CDT - 12/06/2024 11:59 PM CDT Hospital Encounter [facility] Cardiac Testing [address] [place] [address] Encounter for annual health examination Discharge Disposition: Discharge to home or self care 12/06/2024 2:27 PM CDT - 12/06/2024 11:59 PM CDT Hospital Encounter [facility] Diagnostic Imaging [address] [place] [address] Encounter for annual health examination Discharge Disposition: Discharge to home or self care 12/02/2024 Results Follow-Up [facility] Family Medicine at [address] [address] Rigoberto Palacios MD Lipid panel, Urinalysis reflex to microscopic and culture Urine, HIV 1/2 Antibody plus p24 Antigen Blood, Additional followed-up results: 10 12/01/2024 1:10 PM CDT Lab [facility] Medical Office Bldg [address] [place] [address] Encounter for annual health examination; Preop examination 12/01/2024 11:15 AM CDT Office Visit [facility] Family Medicine at [address] [address] Rigoberto Palacios MD Encounter for annual health examination (Primary Dx); Class 1 obesity due to excess calories with serious comorbidity and body mass index (BMI) of 33.0 to 33.9 in adult; Preop examination 11/30/2024 1:35 PM CDT - 11/30/2024 11:59 PM CDT Hospital Encounter [facility] Medical Office Bl 1 Breast [facility] [address] [facility] [address] [place] [address] Unspecified lump in the left breast, upper outer quadrant Discharge Disposition: Discharge to home or self care from Last 3 Months Immunizations Immunization Administration Dates Next Due DTP 02/19/1985, 4,03/02/1980,1979, 9 DTaP 08/31/2017 Influenza, Unspecified 03/19/2024(Deferr ed: Patient decision),04/09/2023(Deferred: Patient decision),02/21/2022(Deferred: Patient decision) MMR 07/23/1991,01/24/1983 OPV 02/19/1985, 4,03/02/1980,1979, 9 Surgical History Surgery Date Site/Laterality Comments SECTION 2005. 2007. BREAST BIOPSY 08/15/2023 Left VAGINAL DELIVERY 1996. 2004. 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 LENS TECHNICIAN Sexual Orientation Straight 06/28/2021 7: 08 AM MOTION PICTURE CAMERA LENS TECHNICIAN Obstetrics History Para Term AB IAB SAB Ectopic Multiple Livin g Live Births 4 4 4 Date Outcome GA Total Labor Labor//3rd Weight Sex Type Anes PTL Doris A1 A5 Name Clin Term Term Term Term Last Filed Vital Signs Vital Sign Reading [...] 12/01/2024 11:40 AM CDT Plan of Treatment Health Maintenance Due Date Last Done Comments Cervical Cancer Screening 1979 Colon Cancer Screening-Colonoscopy 1979 Hepatitis C Screening 1979 Hepatitis B Screening 1997 Influenza Vaccine (#1) 2025 Breast Cancer Screening-Mammogram 11/30/2025 11/30/2024, 08/05/2023, 07/21/2023 Depression Screening 12/01/2025 12/01/2024, 12/01/2024, 04/09/2023 Regular Well Visit/Exam 18-64 12/01/2025 12/01/2024, 04/09/2023 DTaP/Tdap/Td Vaccine (7 - Tdap) 09/01/2027 08/31/2017, 02/19/1985, 09/09/1983, Additional history exists HPV Vaccines Aged Out No longer eligi ble based on patient's age to complete this topic Pneumococcal vaccine <65 Aged Out No longer eligible based on patient's age to complete this topic Medical Devices Implanted Type Area [facility] Medicine Director Device Identifier Shelf Expiration Date Model / Serial / Lot [employer] Marker Biospy Site Top Hat Shape Senomark [id number] - [id number] Implanted:Qty: 1 on 08/15/2023 by Kimo Taveras MD at [facility] Clip Left: Breast [employer] [id number] 03/23/2024 SMARK-GERMAINE [id number]-[id number] / / [id number] Explanted Type [facility] Medicine Director Device Identifier Shelf Expiration Date Model / Serial / Lot [employer] Lee 20ga 7.5cm 2 Part Stabilizer Repositionable Depth Andre [id number] - [id number] - [id number] Explanted:Qty: 1 on 10/29/2023 at [facility] Left: Breast [employer] [id number] 08/20/2028 [id number] / [id number] / [id number] Procedures Procedure Name Priority Date/Time Associated Diagnosis [...] CDT Preop examination DIAGNOSTIC MAMMOGRAM BILATERAL W YUSFE Schedule Routine, Read Routine (OP Routine) 11/30/2024 1:52 PM CDT Unspecified lump in the left breast, upper outer quadrant from Last 3 Months Results * ECG 12 lead (12/06/2024 3:12 PM CDT) Ventricular Rate EKG/Min 76 BPM [facility] Atrial Rate 76 BPM [facility] HI-Interval (MSEC) 148 ms [facility] QRS-Interval (MSEC) 86 ms [facility] QT-Interval (MSEC) 400 ms [facility] QTc 450 ms [facility] P Cos Cob 53 degrees [facility] R [place] 19 degrees [facility] T Cos [place] 19 degrees [facility] Diagnosis Normal sinus rhythm Normal ECG No previous ECGs available Confirmed by SULTAN LEON M.D. ([id number]) on 12/07/2024 5:23:44 PM [facility] 12/06/2024 3:12 PM CDT 12/07/2024 5:23 PM CDT us Rigoberto Palacios MD ECG ORDERABLES Final Result [facility] * XR Chest Pa Lateral 2 Views [...] Kimo Tavares M.D. MJ T: Report ID: [id number] Reading Location: [id number] Procedure Note Kimo Tavares MD - 12/06/2024 [...] Kimo Tavares M.D. MJ T: Report ID: [id number] Reading Location: [id number] Rigoberto Palacios MD IMG XR PROCEDURES Final Result * Urinalysis reflex to microscopic and culture Urine (12/01/2024 3:09 PM CDT) Color, ur Yellow Yellow Clarity, ur Clear Clear [facility] Specific gravity, ur 1.023 1.003 - 1.030 [facility] pH, urine 6.5 [facility] Comment: Interpretive Data U rine pH is affected by diet, medications, systemic acid-base disturbances, and renal tubular function. pH may affect urinary stone formation. For example, urine pH below 6.0 may help reduce the tendency for calcium phosphate stones and pH greater than 6.0 may reduce the tendency for uric acid stone formation. Source: [facility] Current Interpretive Data was last revised on 2017 Protein, ur ql Negative Negative [facility] Glucose, ur ql Negative Negative [facility] Ketones, ur Negative Negative [facility] Bilirubin, ur Negative Negative [facility] Blood, ur Negative Negative [facility] Urobilinogen, ur <2.0 <2.0 mg/dL [facility] Nitrite, ur Negative Negative [facility] Leukocyte esterase, ur Negative Negative [facility] UA reflex comment Reflex conditions for microscopic UA and culture not met. [facility] Urine 12/01/2024 3:09 PM CDT 12/01/2024 4:21 PM CDT Narrative [facility] - 12/01/2024 4:32 PM CDT Urine Collection Method->Clean Catch Rigoberto Palacios MD LAB MICROBIOLOGY - GENERAL ORDER CARLI Final Result [facility] [address] [facility] Department [place] [address] * eGFR (12/01/2024 1:14 PM CDT) eGFR 83 >=60 mL/min/1. 73 m2 Comment: [...] of Race in Diagnosing Kidney Disease, JASN 2020). The CKD-EPI equation should not be used for patients with unstable renal function and has not been validated in children and those over 70. Current interpretive data was last reviewed 2021. Blood 12/01/2024 1:14 PM CDT 12/01/2024 4:25 PM CDT Rigoberto Palacios MD LAB BLOOD ORDERABLES Final Resul t Performing Organization Address City/[facility] Co de Phone Number [address]RI[address] [place] [address] * HIV 1/2 Antibody plus p24 Antigen [...] ORDER CARLI Final Result Performing Organization Address City/[facility]/ZIP Co de Phone Number [place] [address] [facility] [place] [address] * aPTT (12/01/2024 1:14 PM CDT) aPTT 30 22 - 37 sec Comment: Interpretive data aPTT test has not been evaluated for monitoring heparin therapy. The anti-Xa is the preferred test. Current interpretive data was last revised on 2019. Blood 12/01/2024 1:14 PM CDT 12/01/2024 4:25 PM CDT Rigoberto Palacios MD LAB BLOOD ORDERABLES Final Resul t Performing Organization Address [facility] Co de Phone Number [facility] [address] [facility] [employer] [place], [place] [id number] * (ABNORMAL) Protime-INR (12/01/2024 1:14 PM CDT) Pathologist [facility] PT 11.9(L) 12.0 - 14.6 sec Comment:Ref Range Low INR 0.9 0.9 - 1.2 [facility] Comment: Ref Range High Interpretive data Oral [...] ORDERABLES Final Resul t Performing Organization Address [facility]/ZIP Co de Phone Number [place] [address] [facility] [employer] [place], [place] [id number] * (ABNORMAL) CBC without differential (12/01/2024 1:14 PM CDT) WBC 6.53 3.80 - 9.90 K/cumm Hgb 11.7(L) 11.9 - 15.5 g/dL [facility] Hct 38.9 35.6 - 45.5 % [facility] Plt 394 150 - 400 K/cumm [facility] MPV 10.4 9.1 - 12.3 fL [facility] RBC 4.59 3.90 - 5.20 M/cumm [facility] MCV 84.7 81.3 - 96.4 fL [facility] MCH 25.5(L) 27.1 - 33.3 pg [facility] MCHC 30.1(L) 32.3 - 35.7 g/dL [facility] RDW CV 17.0(H) 11.1 - 14.9 % [facility] RDW SD 51.7(H) 35.7 - 48.1 fL [facility] NRBC abs 0.00 0.00 - 0.01 K/cumm [facility] Blood 12/01/2024 1:14 PM CDT 12/01/2024 4:25 PM CDT Rigoberto Palacios MD LAB BLOOD ORDERABLES Final Resul t Performing Organization Address [facility] de Phone Number [address] [place] [address] * hCG, blood, quantitative (12/01/2024 1:14 PM CDT) [facility] hCG, quant <5.0 0.0 - 5.0 [...] ORDERABLES Final Resul t Performing Organization Address City/[facility] Co de Phone Number [address] [place] [employer] [place] [address] * T3, free (12/01/2024 1:14 PM CDT) Free T3 2.4 2.0 - 4.4 pg/mL Blood 12/01/2024 1:14 PM CDT 12/01/2024 4:25 PM CDT us Rigoberto Palacios MD LAB BLOOD ORDERABLES Final Resul t Performing Organization Address [facility] de Phone Number [address] [place] [address] * TSH (12/01/2024 1:14 PM CDT) [facility] Thyroid Stimulating Hormone 0.93 0.30 - 4.20 mcIUnit/mL Blood 12/01/2024 1:14 PM CDT 12/01/2024 4:25 PM CDT us Rigoberto Palacios MD LAB BLOOD ORDERABLES Final Resul t Performing Organization Address [facility] de Phone Number [address] [place] [address] * Hemoglobin A1c (12/01/2024 1:14 PM CDT) [facility] Hgb A1C 5.5 4.0 - 5.6 % Estimated Average Glucose 111 mg/dL [facility] Comment: The ADA recommends reporting an estimated Average Glucose (eAG) with all Hemoglobin A1c results using the equation derived from a study of 507 normal and diabetic adults. Minority populations were underrepresented and children were not included. (Diabetes Care 31:3963-7217, 2008). The eAG is not equivalent to a fasting glucose. Blood 12/01/2024 1:1 4 PM CDT 12/01/2024 4:25 PM CDT us Rigoberto Palacios MD LAB BLOOD ORDERABLES Final Resul t Performing Organization Address [facility] Co de Phone Number [address] [place] [address] * Lipid panel (12/01/2024 1:14 PM CDT) [facility] Signature Cholesterol 166 30 - 199 mg/dL Comment: [...] on 2018. Triglycerides 92 <=149 mg/dL [facility] Comment: Interpretive Data Ages < [...] on 2018. HDL 64 >=40 mg/dL [facility] Comment: Interpretive Data Ages < [...] 2018. LDL, calculated 85 <=129 mg/dL [facility] Comment: Interpretive Data Ages < [...] NCEP Expert Panel. Circulation 2004;110:227 3. Vijay Agueor et al. ANDREW Cardiol. 2020 October 21;5(5):540-548. doi: 10.1001/jamacardio.2020.0013 Current Interpretive Data was [...] last revised on 2018. Chol/HDL ratio 3 [facility] Blood 12/01/2024 1:14 PM CDT 12/01/2024 4:25 PM CDT us Rigoberto Palacios MD LAB BLOOD ORDERABLES Final Resul t [facility] [address] [facility] Department of Laboratories [place], [place] [id number] * (ABNORMAL) Comprehensive metabolic panel (12/01/2024 1:14 PM CDT) Sodium 138 135 - 145 mmol/L Potassium, pl 4.5 3.3 - 4.9 mmol/L [facility] Chloride 105 97 - 110 mmol/L [facility] CO2 21(L) 22 - 32 mmol/L [facility] Anion gap 12 2 - 15 mmol/L [facility] BUN 11 6 - 25 mg/dL [facility] Creatinine 0.88 0.60 - 1.10 mg/dL [facility] Glucose 98 70 - 199 mg/dL [facility] Comment: Interpretive Data Fasting glucose >/= 126 [...] 2022. Calcium 9.3 8.5 - 10.3 mg/dL [facility] Bilirubin, total <0.2 0.1 - 1.2 mg/dL [facility] Protein, pl 8.4 6.5 - 8.5 g/dL [facility] Albumin 4.1 3.5 - 5.0 g/dL [facility] Alk phos 51 40 - 130 Units/L [facility] ALT 7 7 - 45 Units/L [facility] AST 24 10 - 45 Units/L [facility] Blood 12/01/2024 1:14 PM CDT 12/01/2024 4:25 PM CDT us Rigoberto Palacios MD LAB BLOOD ORDERABLES Final Resul t Performing Organization Address City/State/[facility] Co de Phone Number [facility] [address] [facility] [place] [address] * Diagnostic Mammogram Bilateral W Yusef (11/30/2024 [...] thickening. No axillary adenopathy is seen mammographically. us Kimo Taveras MD IMG MAMMO PROCEDURES Final Res ult from Last 3 Months Insurance [facility] IDPA Advance Directives For more information, please contact: [phone] * Full Code (Latest Code Status on File) Date Activated Date Inactivated Comments 10/29/2023 10:27 AM 10/29/2023 4:43 PM Care Teams Animal Handler Relationship Specialty Start Date End Date Rigoberto Palacios MD [address] [facility] [address] [place] [address] [place] [address] PCP - General Family Medicine 12/11/22
--- NOTE | 2025-01-13 12:44 | ED_ITS ---
HPI - Dizziness General Chief Complaint: Syncope Stated Complaint: near syncopal Time Seen by Provider: 01/13/25 12:44 Focused HPI: This is a 44 year old female that presents to the ER for lightheadedness, pre-syncope. Reports she had a tummy tuck 15 days ago in [place]. Reports she got up this morning to use the restroom and she felt like she was going to pass out. Also reports a headache, nausea, vomiting. Reports she was sent home with a drain to the right side of the abdomen, but this fell out a couple of days ago. GENERAL: Well-appearing, well-nourished, and in no acute distress. HEAD: Normocephalic, atraumatic. CHEST: Clear to auscultation. ?No respiratory distress. HEART: Regular rate and rhythm.? NEURO: ?Alert and oriented x3. Patient screened in triage and initial orders placed.? ?Additional care and disposition to be based upon?diagnostic testing and treatment. Related Data Allergies Allergy/AdvReac Type Severity Reaction Status Date / Time No Known Allergies Allergy Verified 02/07/21 19:45 Review of Systems 2 Review of Systems: All systems reviewed & are unremarkable except as noted in HPI and below PMFSH Past Medical History Medical History (Updated 01/13/25 @ 19:03 by Gloria March PA-C) No active medical problems Social History Social History Gender identity (if verbalized by the patient): Female Exam 2 Narrative: GENERAL: Well-appearing, well-nourished, and in no acute distress. HEAD: Normocephalic, atraumatic. EYES: EOMI. ENT: Nares clear, no rhinorrhea or epistaxis. Mucous membranes moist. Oropharynx without tonsillar hypertrophy exudate or other lesions. NECK: Supple. No adenopathy or masses. CHEST: Clear to auscultation. No respiratory distress. No wheezes rales or rhonchi HEART: Regular rate and rhythm. No murmur heard. Normal peripheral pulses. ABDOMEN: Soft, nondistended, normal active bowel sounds. Some induration and warmth on the left side of the incision, no abnormal drainage. This area is tender to palpation EXTREMITIES: Normal range of motion. No edema. SKIN: Warm, dry, no rash. NEURO: No focal deficits. Alert and oriented x3. PSYCH: Normal mood and affect Course Course Emergency Course: patient updated on her workup and need for admission Consultations Consultation #1: Spoke with Dr. Zuñiga. Recommends IR placement of drains. He can see the patient tomorrow Date: 01/13/25 Consultation #2: Spoke with hospitalist about patient and workup who accepts admission Date: 01/13/25 Vital Signs Vital signs: Vital Signs Temperature 98.5 F 01/13/25 11:09 Pulse Rate 81 01/13/25 11:09 Respiratory Rate 16 01/13/25 11:09 Blood Pressure 119/77 01/13/25 11:09 Pulse Oximetry 100 01/13/25 11:09 Temperature 98.5 F 01/13/25 11:09 Pulse Rate 94 01/13/25 18:26 Respiratory Rate 17 01/13/25 18:26 Blood Pressure 132/78 01/13/25 18:26 Pulse Oximetry 100 01/13/25 18:26 Oxygen Delivery Room Air 01/13/25 13:00 MDM - Dizziness MDM Narrative Medical decision making narrative: Patient presents the emergency department for presyncope, lightheadedness, dizziness. She is afebrile and nontoxic appearing. Her vitals are stable. Recently underwent abdominoplasty in [facility] 15 days ago. CBC with hemoglobin of 7.1. White blood cell count is 10.8. Inflammatory markers are elevated. Urine without evidence of infection. Chest x-ray without acute cardiopulmonary abnormality. EKG shows normal sinus rhythm. CT brain without acute findings. D-dimer elevated, CTA of the chest obtained. No PE or acute cardiopulmonary abnormality. Shows large post-op hematoma/seroma bilaterally on the abdominal wall. Blood cultures obtained, IV antibiotics started. Spoke with Dr. Zuñiga. Recommends IR placement of drains. He can see the patient tomorrow. Spoke with hospitalist about patient and workup who accepts admission Differential Diagnosis Differential diagnosis: Likely adverse reaction to drug, benign paroxysmal positional vertigo, orthostatic hypotension and other (anemia, cellulitis, abscess) Lab Data Attestation: I reviewed the patient's lab results. 01/13/25 13:12 01/13/25 13:12 Labs: Lab Results 01/13/25 01/13/25 01/13/25 Range/Units 13:12 14:49 15:19 WBC 10.8 H (4.5-10.0) K/mm3 RBC 2.90 L (4.2-5.4) M/mm3 Hgb 7.1 L (12.0-15.0) g/dL Hct 24.4 L (37.0-47.0) % MCV 84.1 (80-100) fl MCH 24.5 L (26-34) pg MCHC 29.1 L (32-36) g/dl RDW 18.1 H (11.5-14.5) % Plt Count 511 H (150-375) k/mm3 MPV 8.5 (7.4-10.4) fl Immature Gran % (Auto) 0.7 H (0-0.5) % Neut % (Auto) 82.4 H (45.5-73.1) % Lymph % (Auto) 10.3 L (18.3-44.2) % Barber % (Auto) 6.0 (2.6-8.5) % Eos % (Auto) 0.3 (0-4.4) % Baso % (Auto) 0.3 (0.2-1.2) % Lymph # (Auto) 1.11 (0.9-3.2) K/mm3 Barber # (Auto) 0.7 H (0.1-0.6) K/mm3 Eos # (Auto) 0.0 (0-0.3) K/mm3 Baso # (Auto) 0.0 (0.0-0.1) K/mm3 Abs Immat Gran (auto) 0.08 H (0.00-0.031) K/mm3 Absolute Neuts (auto) 8.9 H (1.3-6.7) K/mm3 Absolute Nucleated RBC 0.000 (0.0-0.012) K/mm3 Band Neutrophils % Not Reportable Nucleated RBC % 0.0 (0.0-0.2) % Platelet Estimate Increased (Adequate) Hypochromasia 1+ Anisocytosis 1+ Schistocytes None seen ESR > 140 H (0-20) mm/hr PT 12.9 (11.1-14.7) Seconds INR 1.0 APTT 34.5 (22.3-36.8) Seconds D-Dimer 1.69 H (<0.48) ug/mL Sodium 135 L (137-145) mmol/L Potassium 4.1 (3.4-5.0) mmol/L Chloride 104 (98-107) mmol/L Carbon Dioxide 23 (22-30) mmol/L Anion Gap 8 (4-12) mmol/L BUN 9 (7-17) mg/dL Creatinine 0.66 L (0.7-1.0) mg/dL Estim Creat Clear Calc 109 ml/min Estimated GFR > 60 (59 - ) Glucose 97 (65-110) mg/dL Calcium 9.1 (8.4-10.2) mg/dL Total Bilirubin 0.3 (0.2-1.3) mg/dL AST 28 (14-36) U/L ALT 18 (6-35) U/L Alkaline Phosphatase 57 (38-126) U/L C-Reactive Protein (<1.0) mg/dL Total Protein 7.6 (6.3-8.2) g/dL Albumin 3.6 (3.5-5.1) g/dL Urine Color (Yellow) Urine Appearance (Clear) Urine pH (5.0-9.0) Ur Specific [place] (1.001-1.035) Urine Protein (Negative) mg/dL Urine Glucose (UA) (Negative) mg/dL Urine Ketones (Negative) mg/dL Ur Blood (Man) (Negative) Urine Nitrate (Negative) Urine Bilirubin (Negative) Urine Urobilinogen (<2.0) mg/dL Leukocyte Esterase Rfl (Negative) LOUISE/UL Urine RBC (0-2) /hpf Urine WBC (0-3) /hpf Ur Squamous Epith Cells (Few) /hpf Urine Bacteria /hpf Urine Casts POC Urine HCG, Qual Negative (Negative) Blood Type Antibody Screen Crossmatch 01/13/25 Range/Units 15:23 WBC (4.5-10.0) K/mm3 RBC (4.2-5.4) M/mm3 Hgb (12.0-15.0) g/dL Hct (37.0-47.0) % MCV (80-100) fl MCH (26-34) pg MCHC (32-36) g/dl RDW (11.5-14.5) % Plt Count (150-375) k/mm3 MPV (7.4-10.4) fl Immature Gran % (Auto) (0-0.5) % Neut % (Auto) (45.5-73.1) % Lymph % (Auto) (18.3-44.2) % Barber % (Auto) (2.6-8.5) % Eos % (Auto) (0-4.4) % Baso % (Auto) (0.2-1.2) % Lymph # (Auto) (0.9-3.2) K/mm3 Barber # (Auto) (0.1-0.6) K/mm3 Eos # (Auto) (0-0.3) K/mm3 Baso # (Auto) (0.0-0.1) K/mm3 Abs Immat Gran (auto) (0.00-0.031) K/mm3 Absolute Neuts (auto) (1.3-6.7) K/mm3 Absolute Nucleated RBC (0.0-0.012) K/mm3 Band Neutrophils % Nucleated RBC % (0.0-0.2) % Platelet Estimate (Adequate) Hypochromasia Anisocytosis Schistocytes ESR (0-20) mm/hr PT (11.1-14.7) Seconds INR APTT (22.3-36.8) Seconds D-Dimer (<0.48) ug/mL Sodium (137-145) mmol/L Potassium (3.4-5.0) mmol/L Chloride (98-107) mmol/L Carbon Dioxide (22-30) mmol/L Anion Gap (4-12) mmol/L BUN (7-17) mg/dL Creatinine (0.7-1.0) mg/dL Estim Creat Clear Calc ml/min Estimated GFR (59 - ) Glucose (65-110) mg/dL Calcium (8.4-10.2) mg/dL Total Bilirubin (0.2-1.3) mg/dL AST (14-36) U/L ALT (6-35) U/L Alkaline Phosphatase (38-126) U/L C-Reactive Protein 3.4 H (<1.0) mg/dL Total Protein (6.3-8.2) g/dL Albumin (3.5-5.1) g/dL Urine Color Yellow (Yellow) Urine Appearance Clear (Clear) Urine pH 6.0 (5.0-9.0) Ur Specific [place] 1.021 (1.001-1.035) Urine Protein Negative (Negative) mg/dL Urine Glucose (UA) Negative (Negative) mg/dL Urine Ketones 2+ H (Negative) mg/dL Ur Blood (Man) Negative (Negative) Urine Nitrate Negative (Negative) Urine Bilirubin Negative (Negative) Urine Urobilinogen 0.2 (<2.0) mg/dL Leukocyte Esterase Rfl Trace H (Negative) LOUISE/UL Urine RBC 0-2 (0-2) /hpf Urine WBC 0-5 (0-3) /hpf Ur Squamous Epith Cells None seen (Few) /hpf Urine Bacteria None seen /hpf Urine Casts 0-2 POC Urine HCG, Qual (Negative) Blood Type O Positive Antibody Screen Negative Crossmatch See Detail Imaging Data Radiologist's impression: ITS Impressions Chest X-Ray 01/13/25 13:03 IMPRESSION: No acute process. Head CT 01/13/25 13:34 IMPRESSION: No evidence for acute intracranial hemorrhage or calvarial fracture. Chest/Abdomen/Pelvis CTA 01/13/25 17:04 IMPRESSION: 1. No pulmonary embolism or other acute cardiopulmonary disease. 2. Postoperative changes along the anterior abdominal wall including likely correction of prior rectus diastases with couple large loculated fluid collections in the deep subcutaneous tissues at the anterolateral left and right abdominal wall most likely representing a postoperative hematoma/seromas although differential would include abscess in the appropriate clinical setting. 2. No acute intra-abdominal/pelvic process. ECG Data EKG #1: ECG completion date: 01/13/25 EKG Interpretation: normal rate, sinus rhythm, no ST changes and normal QT Critical Care Time Critical Care Time Critical Care Time: Yes Total Critical Care Time: 35 Discharge Plan Discharge Clinical Impression: Anemia Qualifiers: Anemia type: unspecified type Qualified Code(s): D64.9 - Anemia, unspecified Hematoma of abdominal wall Qualifiers: Encounter type: initial encounter Qualified Code(s): S30.1XXA - Contusion of abdominal wall, initial encounter Cellulitis Qualifiers: Site of cellulitis: trunk Site of cellulitis of trunk: abdominal wall Qualified Code(s): L03.311 - Cellulitis of abdominal wall Patient Disposition: Still a Patient Condition: Serious Patient Language: Mongolian Prescriptions: No Action albuterol sulfate 90 mcg/actuation HFA aerosol inhaler 2 puff inhalation QID PRN (Reason: shortness of breath or wheezing) Qty: 8.5 0RF dexamethasone [Decadron] 6 mg tablet 6 mg PO DAILY Qty: 5 0RF Follow-up/Referrals: Jefry Best MD [Physician] -
--- NOTE | 2025-01-13 12:46 | ECG_ITS ---
Test Date: 2025-01-13 13:09:11 Measurements Intervals [place] Rate: 81 P: 60 WI: 156 QRS: 26 QRSD: 86 T: 39 QT: 387 QTc: 450 Interpretive Statements SINUS RHYTHM No previous ECG available for comparison Electronically Signed On 01-14-2025 15:58:16 CDT by Carlos Enrique Osorio M.D.
--- NOTE | 2025-01-13 13:10 | PC.NURSE ---
Pt has what appears to be a healing incision from shady zuñiga
[2025-01-13] MEDS: SODIUM CHLORIDE 0.9% IV 1,000 ML 999 ML IV CONT (13:14)
[2025-01-13] MEDS: ONDANSETRON INJ 4 MG/2 ML VIAL IV PUSH (13:15)
[2025-01-13] MEDS: ACETAMINOPHEN 500 MG TABLET 1000 MG PO (13:15)
[2025-01-13 13:27] LABS: Hematocrit 24.4 % (37.0-47.0); Hemoglobin 7.1 g/dL (12.0-15.0); Immature Granulocyte Percent A 0.7 % (0-0.5); Lymphocytes Absolute Auto 1.11 K/mm3 (0.9-3.2); Mean Corpuscular HGB Conc 29.1 g/dl (32-36); Mean Corpuscular Hemoglobin 24.5 pg (26-34); Mean Corpuscular Volume 84.1 fl (80-100); Nucleated Red Blood Cells Absolute Auto 0.000 K/mm3 (0.0-0.012); Nucleated Red Blood Cells Perc 0.0 % (0.0-0.2); Platelet Count Result 511 k/mm3 (150-375); Red Blood Count 2.90 M/mm3 (4.2-5.4); White Blood Count 10.8 K/mm3 (4.5-10.0)
[2025-01-13 13:47] LABS: Alanine Aminotransferase 18 U/L (6-35); Albumin Level 3.6 g/dL (3.5-5.1); Alkaline Phosphatase 57 U/L (38-126); Anion Gap 8 mmol/L (4-12); Aspartate Amino Transferase 28 U/L (14-36); Bilirubin,Total 0.3 mg/dL (0.2-1.3); Blood Urea Nitrogen 9 mg/dL (7-17); Calcium 9.1 mg/dL (8.4-10.2); Carbon Dioxide 23 mmol/L (22-30); Chloride 104 mmol/L (98-107); Estimated CRCL calculation 109 ml/min; Estimated Glomerular Filt Rate > 60; Glucose 97 mg/dL (65-110); INR 1.0; Potassium 4.1 mmol/L (3.4-5.0); Prothrombin Time 12.9 Seconds (11.1-14.7); Schistocytes None Seen; Sodium 135 mmol/L (137-145); Total Protein 7.6 g/dL (6.3-8.2)
[2025-01-13 13:48] LABS: Anisocytosis 1+; Partial Thromboplastin Time 34.5 Seconds (22.3-36.8)
[2025-01-13 13:49] LABS: Hypochromasia 1+
--- OUTSIDE RECORDS SUMMARY | 2025-01-13 13:50 | XMS_ITS | Encounter Summary ---
Author Organization [facility] Healthcare Address [address] [place] [address] Care Team Providers Care Storekeeper Helper Name Role Phone Rigoberto Palacios MD Primary Care Provider [phone] Reason for Visit * Reason Onset Date Comments Medical Question/Miscellaneous 12/13/2024 Encounter Details Date Type Department Care Team (Late st Contact Info) Description 12/13/2024 Telephone [facility] Family Medicine at [address] [place] [address] Rigoberto Palacios MD [address] [place] [id number] Medical Question/Miscellaneous Social History Tobacco Use [...] on file Legal Sex Female 6:48 PM CD MIXER Gender Identity Female 06/28/2021 7:08 AM CD MIXER Sexual Orientation Straight 06/28/2021 7: 08 AM CD MIXER documented as of this encounter Miscellaneous Notes * Telephone Encounter - Rosa Guevara - 12/13/2024 9:55 AM CDT Spoke to patient. She did not understand why she needs to come to office and sigh a HIPAA form whensome of her records were already fax to [facility] * Telephone Encounter - Sun James - [...] recent urinalysis and UKG be faxed to [facility] at [phone] as soon as possible. Patient is requesting a call back once this has been done. Sending high priority Does message need to be routed? Yes-Action Needed documented in this encounter Plan of Treatment Not on file documented as of this encounter Visit Diagnoses Not on filedocumented in this encounter Care Teams Storekeeper Helper Relationship Specialty Start Date End Date Rigoberto Palacios MD [address] [facility] [address] [address] PCP - General Family Medicine 12/11/22 documented as of this encounter
--- OUTSIDE RECORDS SUMMARY | 2025-01-13 13:50 | XMS_ITS | Clinical Summary ---
Author Organization [facility] at the Medical Office Building Address [address] [place] [phone] Care Team Providers Care Occupational Safety Specialist Name Role Phone Rigoberto Palacios MD Primary Care Provider [phone] Allergies No known active allergies Medications tirzepatide [...] Type Department Care Team Description 12/21/2024 Telephone [facility] Family Medicine at [address] [phone] Rigoberto Palacios MD Med Refill 12/13/2024 Telephone [facility] Family Medicine at [address] [phone] Rigoberto Palacios MD Medical Question/Miscellaneo us 12/08/2024 Telephone [facility] Medicine at [address] [phone] Rigoberto Palacios MD Forms Request; Call Back 12/06/2024 2:50 PM CDT - 12/06/2024 11:59 PM CDT Hospital Encounter [facility] Cardiac Testing [address] [place] [address] Encounter for annual health examination Discharge Disposition: Discharge to home or self care 12/06/2024 2:27 PM CDT - 12/06/2024 11:59 PM CDT Hospital Encounter [facility] Diagnostic Imaging [address] [place] [address] Encounter for annual health examination Discharge Disposition: Discharge to home or self care 12/02/2024 Results Follow-Up [facility] Family Medicine at [address] [phone] Rigoberto Palacios MD Lipid panel, Urinalysis reflex to microscopic and culture Urine, HIV 1/2 Antibody plus p24 Antigen Blood, Additional followed-up results: 10 12/01/2024 1:10 PM CDT Lab [facility] Medical Office Bldg [address] [place] [phone] Encounter for annual health examination; Preop examination 12/01/2024 11:15 AM CDT Office Visit [facility] Family Medicine at [address] [phone] Rigoberto Palacios MD Encounter for annual health examination (Primary Dx); Class 1 obesity due to excess calories with serious comorbidity and body mass index (BMI) of 33.0 to 33.9 in adult; Preop examination 11/30/2024 1:35 PM CDT - 11/30/2024 11:59 PM CDT Hospital Encounter [facility] Medical Office Bl 1 Breast [facility] [address] [facility] [address] [place] [address] Unspecified lump in the left breast, upper [...] on file Legal Sex Female 6:48 PM LINE STAKER Gender Identity Female 06/28/2021 7:08 AM LINE STAKER Sexual Orientation Straight 06/28/2021 7: 08 AM LINE STAKER Obstetrics History Para Term AB IAB SAB [...] this topic Medical Devices Implanted Type Area Heel Seat Fitter Device Identifier Shelf Expiration Date Model / Serial / Lot [employer] Partnership Marker Biospy Site Top Hat Shape [employer]ark [id number] - [id number] Implanted:Qty: 1 on 08/15/2023 by Kimo Taveras MD at [facility] Clip Left: Breast [employer] [id number] 03/23/2024 SMARK-GERMAINE ERO-2S / / [id number] Explanted Type Area Heel Seat Fitter Device Identifier Shelf Expiration Date Model / Serial / Lot Core Machine [employer] [place] 20ga 7.5cm 2 Part Stabilizer Repositionable Depth Andre [id number] - [id number] - [id number] Explanted:Qty: 1 on 10/29/2023 at [facility] Left: Breast Core Machine [employer] [id number] 08/20/2028 [id number] / [id number] / [id number] Procedures Procedure Name Priority Date/Time Associated Diagnosis [...] PM CDT) Ventricular Rate EKG/Min 76 BPM [facility] Atrial Rate 76 BPM [facility] IA-Interval (MSEC) 148 ms [facility] QRS-Interval (MSEC) 86 ms [facility] QT-Interval (MSEC) 400 ms [facility] QTc 450 ms [facility] P Benson 53 degrees [facility] R Benson 19 degrees [facility] T Benson 19 degrees [facility] Diagnosis Normal sinus rhythm Normal ECG No previous ECGs available Confirmed by SULTAN LEON M.D. ([id number]) on 12/07/2024 5:23:44 PM [facility] 12/06/2024 3:12 PM CDT 12/07/2024 5:23 PM CDT us Rigoberto Palacios MD ECG ORDERABLES Final Result [facility] * XR Chest Pa Lateral 2 Views [...] Kimo Tavares M.D. MJ T: Report ID: [id number] Reading Location: [id number] Procedure Note Kimo Tavares MD - 12/06/2024 [...] Kimo Tavares M.D. MJ T: Report ID: [id number] Reading Location: [id number] Rigoberto Palacios MD IMG XR PROCEDURES Final Result * Urinalysis reflex to microscopic and culture Urine (12/01/2024 3:09 PM CDT) Color, ur Yellow Yellow Clarity, ur Clear Clear [facility] Specific gravity, ur 1.023 1.003 - 1.030 [facility] pH, urine 6.5 [facility] Comment: Interpretive Data U rine pH is affected by diet, medications, systemic acid-base disturbances, and renal tubular function. pH may affect urinary stone formation. For example, urine pH below 6.0 may help reduce the tendency for calcium phosphate stones and pH greater than 6.0 may reduce the tendency for uric acid stone formation. Source: [facility] Current Interpretive Data was last revised on 2017 Protein, ur ql Negative Negative [facility] Glucose, ur ql Negative Negative [facility] Ketones, ur Negative Negative [facility] Bilirubin, ur Negative Negative [facility] Blood, ur Negative Negative [facility] Urobilinogen, ur <2.0 <2.0 mg/dL [facility] Nitrite, ur Negative Negative [facility] Leukocyte esterase, ur Negative Negative [facility] UA reflex comment Reflex conditions for microscopic UA and culture not met. [facility] Urine 12/01/2024 3:09 PM CDT 12/01/2024 4:21 PM CDT Narrative [facility] - 12/01/2024 4:32 PM CDT Urine Collection Method->Clean Catch Rigoberto Palacios MD LAB MICROBIOLOGY - GENERAL ORDER CARLI Final Result [facility] [address] [facility] Department [place] [address] * eGFR (12/01/2024 1:14 PM [...] ORDERABLES Final Resul t Performing Organization Address City/[facility] Co de Phone Number [id number] [place] [address] * HIV 1/2 Antibody plus p24 Antigen [...] ORDER CARLI Final Result Performing Organization Address City/[facility]/ZIP Co de Phone Number [place] [address] [facility] [place] [address] * aPTT (12/01/2024 1:14 PM CDT) aPTT 30 22 - 37 sec Comment: Interpretive data aPTT test has not been evaluated for monitoring heparin therapy. The anti-Xa is the preferred test. Current interpretive data was last revised on 2019. Blood 12/01/2024 1:14 PM CDT 12/01/2024 4:25 PM CDT Rigoberto Palacios MD LAB BLOOD ORDERABLES Final Resul t Performing Organization Address [facility] Co de Phone Number [facility] [address] [facility] [employer] [place], [place] [phone] * (ABNORMAL) Protime-INR (12/01/2024 1:14 PM CDT) Pathologist [facility] PT 11.9(L) 12.0 - 14.6 sec Comment:Ref [...] ORDERABLES Final Resul t Performing Organization Address [facility]/ZIP Co de Phone Number [place] [address] [facility] [employer] [place], [place] [phone] * (ABNORMAL) CBC without differential (12/01/2024 1:14 PM CDT) WBC 6.53 3.80 - 9.90 K/cumm Hgb 11.7(L) 11.9 - 15.5 g/dL [facility] Hct 38.9 35.6 - 45.5 % [facility] Plt 394 150 - 400 K/cumm [facility] MPV 10.4 9.1 - 12.3 fL [facility] RBC 4.59 3.90 - 5.20 M/cumm [facility] MCV 84.7 81.3 - 96.4 fL [facility] MCH 25.5(L) 27.1 - 33.3 pg [facility] MCHC 30.1(L) 32.3 - 35.7 g/dL [facility] RDW CV 17.0(H) 11.1 - 14.9 % [facility] RDW SD 51.7(H) 35.7 - 48.1 fL [facility] NRBC abs 0.00 0.00 - 0.01 K/cumm [facility] Blood 12/01/2024 1:14 PM CDT 12/01/2024 4:25 PM CDT Rigoberto Palacios MD LAB BLOOD ORDERABLES Final Resul t Performing Organization Address [facility] de Phone Number [address] [place] [address] * hCG, blood, quantitative (12/01/2024 1:14 PM CDT) [facility] hCG, quant <5.0 0.0 - 5.0 [...] ORDERABLES Final Resul t Performing Organization Address City/[facility] Co de Phone Number [address] [place] [address] * T3, free (12/01/2024 1:14 PM CDT) Free T3 2.4 2.0 - 4.4 pg/mL Blood 12/01/2024 1:14 PM CDT 12/01/2024 4:25 PM CDT us Rigoberto Palacios MD LAB BLOOD ORDERABLES Final Resul t Performing Organization Address [facility] de Phone Number [address] [place] [address] * TSH (12/01/2024 1:14 PM CDT) [facility] Thyroid Stimulating Hormone 0.93 0.30 - 4.20 mcIUnit/mL Blood 12/01/2024 1:14 PM CDT 12/01/2024 4:25 PM CDT us Rigoberto Palacios MD LAB BLOOD ORDERABLES Final Resul t Performing Organization Address [facility] de Phone Number [address] [place] [address] * Hemoglobin A1c (12/01/2024 1:14 PM CDT) [facility] Hgb A1C 5.5 4.0 - 5.6 % Estimated Average Glucose 111 mg/dL [facility] Comment: The ADA recommends reporting an estimated Average Glucose (eAG) with all Hemoglobin A1c results using the equation derived from a study of 507 normal and diabetic adults. Minority populations were underrepresented and children were not included. (Diabetes Care 31:7599-0169, 2008). The eAG is not equivalent to a fasting glucose. Blood 12/01/2024 1:1 4 PM CDT 12/01/2024 4:25 PM CDT us Rigoberto Palacios MD LAB BLOOD ORDERABLES Final Resul t Performing Organization Address [facility] Co de Phone Number [address] [place] [address] * Lipid panel (12/01/2024 1:14 PM CDT) [facility] Signature Cholesterol 166 30 - 199 [...] 3. Vijay Aguero et al. ANDREW Cardiol. 2020 October 21;5(5):540-548. [...] last revised on 2018. Chol/HDL ratio 3 [facility] Blood 12/01/2024 1:14 PM CDT 12/01/2024 4:25 PM CDT us Rigoberto Palacios MD LAB BLOOD ORDERABLES Final Resul t [facility] [address] [facility] Department of Laboratories [place], [place] [phone] * (ABNORMAL) Comprehensive metabolic panel (12/01/2024 1:14 PM CDT) Sodium 138 135 - 145 mmol/L Potassium, pl 4.5 3.3 - 4.9 mmol/L [facility] Chloride 105 97 - 110 mmol/L [facility] CO2 21(L) 22 - 32 mmol/L [facility] Anion gap 12 2 - 15 mmol/L [facility] BUN 11 6 - 25 mg/dL [facility] Creatinine 0.88 0.60 - 1.10 mg/dL [facility] Glucose 98 70 - 199 mg/dL [facility] Comment: Interpretive Data Fasting glucose >/= [...] 2022. Calcium 9.3 8.5 - 10.3 mg/dL [facility] Bilirubin, total <0.2 0.1 - 1.2 mg/dL [facility] Protein, pl 8.4 6.5 - 8.5 g/dL [facility] Albumin 4.1 3.5 - 5.0 g/dL [facility] Alk phos 51 40 - 130 Units/L [facility] ALT 7 7 - 45 Units/L [facility] AST 24 10 - 45 Units/L [facility] Blood 12/01/2024 1:14 PM CDT 12/01/2024 4:25 PM CDT us Rigoberto Palacios MD LAB BLOOD ORDERABLES Final Resul t Performing Organization Address City/State/[facility] Co de Phone Number [facility] [address] [facility] Department [place] [address] * Diagnostic Mammogram Bilateral W Yusef (11/30/2024 [...] Res ult from Last 3 Months Insurance [facility] IDPA Advance Directives For more information, please contact: [phone] * Full Code (Latest Code Status on File) Date Activated Date Inactivated Comments 10/29/2023 10:27 AM 10/29/2023 4:43 PM Care Teams Occupational Safety Specialist Relationship Specialty Start Date End Date Rigoberto Palacios MD [address] [facility] [address] [place] [address] [place] [id number] PCP - General Family Medicine 12/11/22
--- OUTSIDE RECORDS SUMMARY | 2025-01-13 13:50 | XMS_ITS | Referral Summary ---
Author Organization [facility] at the Medical Office Building Address [address] [place] [id number] Care Team Providers Care Certified Veterinary Technician Name Role Phone Rigoberto Palacios MD Primary Care Provider [phone] Encounters Date Type Department Care Team Description 12/21/2024 Telephone [facility] Family Medicine at [address] [place] [address] Rigoberto Palacios MD Med Refill 12/13/2024 Telephone [facility] Family Medicine at [address] [place] [address] Rigoberto Palacios MD Medical Question/Miscellaneo us 12/08/2024 Telephone [facility] Medical [facility] Family Medicine at [address] [place] [address] Rigoberto Palacios MD Forms Request; Call Back 12/06/2024 2:50 PM CDT - 12/06/2024 11:59 PM CDT Hospital Encounter [facility] [address] [place] [address] Encounter for annual health examination Discharge Disposition: Discharge to home or self care 12/06/2024 2:27 PM CDT - 12/06/2024 11:59 PM CDT Hospital Encounter [facility] [place] [address] Encounter for annual health examination Discharge Disposition: Discharge to home or self care 12/02/2024 Results Follow-Up [facility] Medical [facility] Family Medicine at [address] [place] [address] Rigoberto Palacios MD Lipid panel, Urinalysis reflex to microscopic and culture Urine, HIV 1/2 Antibody plus p24 Antigen Blood, Additional followed-up results: 12/01/2024 1:10 PM CDT Lab [facility] Medical Office [address] [place] [address] [address] [place] [address] Encounter for annual health examination; Preop examination 12/01/2024 11:15 AM CDT Office Visit [facility] Medical [facility] Family Medicine at [address] [place] [address] Rigoberto Palacios MD Encounter for annual health examination (Primary Dx); Class 1 obesity due to excess calories with serious comorbidity and body mass index (BMI) of 33.0 to 33.9 in adult; Preop examination 11/30/2024 1:35 PM CDT - 11/30/2024 11:59 PM CDT Hospital Encounter [facility] Medical Office Bl 1 Breast [facility] [address] [facility] [address] [place] [address] Unspecified lump in the left breast, upper [...] on file Legal Sex Female 6:48 PM PACKAGE COLLECTOR Gender Identity Female 06/28/2021 7:08 AM PACKAGE COLLECTOR Sexual Orientation Straight 06/28/2021 7: 08 AM PACKAGE COLLECTOR Last Filed Vital Signs Vital Sign Reading [...] on file Medical Devices Implanted Type Area Instructor Technical Training Device Identifier Shelf Expiration Date Model / Serial / Lot SiC Processing Partnership Marker Biospy Site Top Hat Shape [employer] [id number] - [id number] Implanted:Qty: 1 on 08/15/2023 by Kimo Taveras MD at [facility] Left: Breast [employer] [id number] 03/23/2024 SMARK-GERMAINE [id number] / / [id number] Explanted Type Area Instructor Technical Training Device Identifier Shelf Expiration Date Model / Serial / Lot [employer] Terrell 20ga 7.5cm 2 Part Stabilizer Repositionable Depth Andre [id number] - [id number] - [id number] Explanted:Qty: 1 on 10/29/2023 at [facility] Left: Breast [employer] [id number] 08/20/2028 [id number] / [id number] / [id number] Procedures Procedure Name Priority Date/Time Associated Diagnosis [...] PM CDT) Ventricular Rate EKG/Min 76 BPM [facility] Atrial Rate 76 BPM [facility] CT-Interval (MSEC) 148 ms [facility] QRS-Interval (MSEC) 86 ms [facility] QT-Interval (MSEC) 400 ms [facility] QTc 450 ms [facility] P [place] 53 degrees [facility] R [place] 19 degrees [facility] T [place] 19 degrees [facility] Diagnosis Normal sinus rhythm Normal ECG No previous ECGs available Confirmed by SULTAN LEON M.D. ([id number]) on 12/07/2024 5:23:44 PM [facility] 12/06/2024 3:12 PM CDT 12/07/2024 5:23 PM CDT us Rigoberto Palacios MD ECG ORDERABLES Final Result [facility] * XR Chest Pa Lateral 2 Views [...] Kimo Tavares M.D. MJ T: Report ID: [id number] Reading Location: [id number] Procedure Note Kimo Tavares MD - 12/06/2024 [...] Kimo Tavares M.D. MJ T: Report ID: [id number] Reading Location: [place] [address] Rigoberto Palacios MD IMG XR PROCEDURES Final Result * Urinalysis reflex to microscopic and culture Urine (12/01/2024 3:09 PM CDT) Color, ur Yellow Yellow Clarity, ur Clear Clear [facility] Specific gravity, ur 1.023 1.003 - 1.030 RASHEEDA pH, urine 6.5 [facility] Comment: Interpretive Data U rine pH is affected by diet, medications, systemic acid-base disturbances, and renal tubular function. pH may affect urinary stone formation. For example, urine pH below 6.0 may help reduce the tendency for calcium phosphate stones and pH greater than 6.0 may reduce the tendency for uric acid stone formation. Source: [facility] [employer] Current Interpretive Data was last revised on 2017 Protein, ur ql Negative Negative [facility] Glucose, ur ql Negative Negative [facility] Ketones, ur Negative Negative [facility] Bilirubin, ur Negative Negative [facility] Blood, ur Negative Negative [facility] Urobilinogen, ur <2.0 <2.0 mg/dL [facility] Nitrite, ur Negative Negative [facility] Leukocyte esterase, ur Negative Negative [facility] UA reflex comment Reflex conditions for microscopic UA and culture not met. RASHEEDA Urine 12/01/2024 3:0 9 PM CDT 12/01/2024 4:21 PM CDT Narrative RASHEDEA - 12/01/2024 4:32 PM CDT Urine Collection Method->Clean Catch Rigoberto Palacios MD LAB MICROBIOLOGY - GENERAL ORDER CARLI Final Result Performing Organization Address [facility] Co de Phone Number [id number] [place] [address] * eGFR (12/01/2024 1:14 PM CDT) Pathologist [facility] eGFR 83 >=60 mL/min/1. 73 m2 Comment: [...] ORDERABLES Final Resul t Performing Organization Address [facility] Co de Phone Number [id number] [place] [address] * HIV 1/2 Antibody plus p24 Antigen [...] ORDER CARLI Final Result Performing Organization Address [facility] de Phone Number [address] [address] * aPTT (12/01/2024 1:14 PM CDT) Pathologist [facility] aPTT 30 22 - 37 sec Comment: Interpretive data aPTT test has not been evaluated for monitoring heparin therapy. The anti-Xa is the preferred test. Current interpretive data was last revised on 2019. Blood 12/01/2024 1:14 PM CDT 12/01/2024 4:25 PM CDT Rigoberto Palacios MD LAB BLOOD ORDERABLES Final Resul t Performing Organization Address [facility] de Phone Number [address] [address] * (ABNORMAL) Protime-INR (12/01/2024 1:14 PM CDT) Pathologist [facility] PT 11.9(L) 12.0 - 14.6 sec Comment:Ref Range Low INR 0.9 0.9 - 1.2 [facility] Comment: Ref Range High Interpretive data [...] ORDERABLES Final Resul t Performing Organization Address [facility] Co de Phone Number RASHEEDA [address] [place] [address] * (ABNORMAL) CBC without differential (12/01/2024 1:14 PM CDT) [facility] WBC 6.53 3.80 - 9.90 K/cumm Hgb 11.7(L) 11.9 - 15.5 g/dL [facility] Hct 38.9 35.6 - 45.5 % [facility] Plt 394 150 - 400 K/cumm [facility] MPV 10.4 9.1 - 12.3 fL [facility] RBC 4.59 3.90 - 5.20 M/cumm [facility] MCV 84.7 81.3 - 96.4 fL [facility] MCH 25.5(L) 27.1 - 33.3 pg [facility] MCHC 30.1(L) 32.3 - 35.7 g/dL [facility] RDW CV 17.0(H) 11.1 - 14.9 % [facility] RDW SD 51.7(H) 35.7 - 48.1 fL [facility] NRBC abs 0.00 0.00 - 0.01 K/cumm [facility] Blood 12/01/2024 1:14 PM CDT 12/01/2024 4:25 PM CDT Rigoberto Palacios MD LAB BLOOD ORDERABLES Final Resul t Performing Organization Address [facility] Co de Phone Number RASHEEDA [address] [place] [address] * hCG, blood, quantitative (12/01/2024 1:14 PM CDT) [facility] hCG, quant <5.0 0.0 - 5.0 IUnits/L [...] ORDERABLES Final Resul t Performing Organization Address City/[facility] Co de Phone Number [address] [place] [address] * T3, free (12/01/2024 1:14 PM CDT) Pathologist [facility] Free T3 2.4 2.0 - 4.4 pg/mL Blood 12/01/2024 1:14 PM CDT 12/01/2024 4:25 PM CDT Rigoberto Palacios MD LAB BLOOD ORDERABLES Final Resul t Performing Organization Address [facility] de Phone Number [address] [employer] [address] * TSH (12/01/2024 1:14 PM CDT) Pathologist [facility] Thyroid Stimulating Hormone 0.93 0.30 - 4.20 mcIUnit/mL Blood 12/01/2024 1:14 PM CDT 12/01/2024 4:25 PM CDT Rigoberto Palacios MD LAB BLOOD ORDERABLES Final Resul t Performing Organization Address [facility] Co de Phone Number [address] [place] [address] * Hemoglobin A1c (12/01/2024 1:14 PM CDT) Hgb A1C 5.5 4.0 - 5.6 % Estimated Average Glucose 111 mg/dL RASHEEDA Comment: The ADA recommends reporting an estimated Average Glucose (eAG) with all Hemoglobin A1c results using the equation derived from a study of 507 normal and diabetic adults. Minority populations were underrepresented and children were not included. (Diabetes Care 31:4083-8237, 2008). The eAG is not equivalent to a fasting glucose. Blood 12/01/2024 1:14 PM CDT 12/01/2024 4:25 PM CDT Rigoberto Palacios MD LAB BLOOD ORDERABLES Final Resul t RASHEEDA [address] [facility] [place] [address] * Lipid panel (12/01/2024 1:14 PM CDT) [...] last revised on 2018. Chol/HDL ratio 3 RASHEEAD Blood 12/01/2024 1:14 PM CDT 12/01/2024 4:25 PM CDT Rigoberto Palacios MD LAB BLOOD ORDERABLES Final Resul t RASHEEDA [address] [facility] [place] [address] * (ABNORMAL) Comprehensive metabolic panel (12/01/2024 1:14 PM CDT) Sodium 138 135 - 145 mmol/L Potassium, pl 4.5 3.3 - 4.9 mmol/L [facility] Chloride 105 97 - 110 mmol/L [facility] CO2 21(L) 22 - 32 mmol/L [facility] Anion gap 12 2 - 15 mmol/L [facility] BUN 11 6 - 25 mg/dL [facility] Creatinine 0.88 0.60 - 1.10 mg/dL [facility] Glucose 98 70 - 199 mg/dL [facility] Comment: Interpretive Data Fasting glucose >/= [...] 2022. Calcium 9.3 8.5 - 10.3 mg/dL [facility] Bilirubin, total <0.2 0.1 - 1.2 mg/dL [facility] Protein, pl 8.4 6.5 - 8.5 g/dL [facility] Albumin 4.1 3.5 - 5.0 g/dL [facility] Alk phos 51 40 - 130 Units/L [facility] ALT 7 7 - 45 Units/L [facility] AST 24 10 - 45 Units/L [facility] Blood 12/01/2024 1:14 PM CDT 12/01/2024 4:25 PM CDT Rigoberto Palacios MD LAB BLOOD ORDERABLES Final Resul t RASHEEDA [address] [facility] Department of Laboratories [place], [place] [id number] * Diagnostic Mammogram Bilateral W Yusef (11/30/2024 1:52 PM CDT) Anatomical Region Laterality Modality Breast Bilateral Mammography 11/30/2024 4:48 PM CDT Impressions 11/30/2024 4:48 PM CDT No imaging findings to suggest malignancy are seen. The patient may return to screening mammography as per ACR guidelines. OVERALL FINAL ASSESSMENT: BI-RADS 2 - Benign findings. Electronically signed by: Dinane Quiroz M.D. Narrative 11/30/2024 4:48 PM CDT [...] Res ult from Last 3 Months Insurance [facility] IDPA IDPA Advance Directives For more information, please contact: [phone] * Full Code (Latest Code Status on File) Date Activated Date Inactivated Comments 10/29/2023 10:27 AM 10/29/2023 4:43 PM Care Teams Certified Veterinary Technician Relationship Specialty Start Date End Date Rigoberto Palacios MD [address] [address] PCP - General Family Medicine 12/11/22
--- OUTSIDE RECORDS SUMMARY | 2025-01-13 13:50 | XMS_ITS | Encounter Summary ---
Author Organization [facility] Healthcare Address [address] [place] [address] Care Team Providers Care Freelance Director Name Role Phone Rigoberto Palacios MD Primary Care Provider [phone] Encounter Details Date Type Department Care Team (Late st Contact Info) Description 12/02/2024 Results Follow-Up [facility] Medical Group Family Medicine at [address] [place] [address] Rigoberto Palacios MD [address] [place] [address] [address] [place] [address] Lipid panel, Urinalysis reflex to [...] on file Legal Sex Female 6:48 PM POWER DIGGER OPERATOR Gender Identity Female 06/28/2021 7:08 AM POWER DIGGER OPERATOR Sexual Orientation Straight 06/28/2021 7: 08 AM POWER DIGGER OPERATOR documented as of this encounter Plan of Treatment Not on file documented as of this encounter Visit Diagnoses Not on filedocumented in this encounter Care Teams Freelance Director Relationship Specialty Start Date End Date Rigoberto Palacios MD [address] [facility] [address] [address] PCP - General Family Medicine 12/11/22 documented as of this encounter
[2025-01-13 15:21] LABS: BEDSIDEPREGUCG Negative (Negative)
[2025-01-13] MEDS: MORPHINE SULFATE (*CRX) 4 MG/ML INJ IV PUSH (15:30)
[2025-01-13 15:34] LABS: Add Urine Microscopic? YES; Appearance Urine Clear (Clear); Glucose Urine UA Negative (Negative); Leukocyte Esterase Ur Trace LEU/UL (Negative); Nitrate Urine Negative (Negative); Non Pathogenic Casts 0-2; Specific Grav Ur 1.021 (1.001-1.035)
--- NOTE | 2025-01-13 15:35 | PC.NURSE ---
Pt reminded to keep arm straight for IV fluids
[2025-01-13 15:47] LABS: CRP 3.4 mg/dL (<1.0)
[2025-01-13] MEDS: ceFAZolin 1 GM in SODIUM CHLORIDE 0.9% IV 50 ML 100 ML IVPB (18:34)
--- NOTE | 2025-01-13 18:43 | P.HP_ITS ---
H&P: HPI History of Present Illness Date/Time: 01/13/25 18:43 Chief Complaint: Postop weakness and syncope Narrative: 44-year-old female who is 2 weeks postop from abdominal plasty presents the hospital with increased weakness and syncope. Patient states that about 2 weeks ago she was on floor diet to get a abdominal plasty and had 11 lb of skin removed. She states that she lost 100 lb with diet and exercise. Since this surgery she states that she has gained about 15 lb. She states that she has not been wearing her abdominal binder causes poorly fitting cutting into her butt and thighs. She states that she knows that her abdomen is getting firm and is more painful now. Today she was sitting on the toilet and she was unable to get up. She had to call for help. And her son had called EMS. She denies nausea or vomiting. She did state that she was moving around a lot yesterday cleaning the house. Lab work shows leukocytosis at 10.8, hemoglobin is 7.1 patient states she thinks she was at around 11 postop, ESR over 140, a D-dimer of 1.69, sodium of 135, creatinine of 0.66, C reactive protein of 3.4, UA with trace leukocyte esterase. Had CT shows no acute process. Chest x-ray shows no acute. CT chest abdomen pelvis negative for PE, Postoperative changes along the anterior abdominal wall including likely correction of prior rectus diastases with couple large loculated fluid collections in the deep subcutaneous tissues at the anterolateral left and right abdominal wall most likely representing a postoperative hematoma/seromas although differential would include abscess in the appropriate clinical setting. Plastics is consulted recommending IR. Review of Systems Review of Systems: 12 systems were reviewed and are negativ e except for as per HPI. [facility] Past Medical History Medical History (Updated 01/13/25 @ 22:14 by Alicja Hassan APRN) No active medical problems Family History Family History (Updated 01/13/25 @ 22:02 by Melissa Segovia RN) Other Patient's mother is Social History Social History Smoking status: Former smoker Smokeless tobacco user: other Alcohol intake: former Substance use: never Substance use type: does not use Do You Feel Safe in your Home?: Yes Lack of Transportation: No Lack of Food: Never True Current Housing: I Have Housing Concerned About Future Housing: No Difficulty Paying Gas/Electric Bills: No Difficulty Paying for Meds: No Currently Unemployed: No Education: High School Diploma/GED Difficulty w/ Childcare or Family Care: No Gender identity (if verbalized by the patient): Female Spiritual care concerns: No Meds Home Medications and Allergies Home Medications ?Medication ?Instructions ?Recorded ?Confirmed ?Type yvzamccbmlyp-Hi-xqky-minerals 18 1 tablet PO DAILY 01/13/25 01/13/25 History mg-0.4 mg tablet Allergies Allergy/AdvReac Type Severity Reaction Status Date / Time No Known Allergies Allergy Verified 02/07/21 19:45 Vital Signs Vital Signs - 24 hr 01/13/25 11:09 01/13/25 13:00 01/13/25 13:06 Temperature 98.5 F Pulse Rate 81 83 84 Respiratory Rate 16 13 Blood Pressure 119/77 124/71 Pulse Oximetry 100 100 Oxygen Delivery Room Air 01/13/25 14:11 01/13/25 16:20 01/13/25 17:21 Temperature Pulse Rate 85 83 91 Respiratory Rate 15 17 16 Blood Pressure 118/68 125/70 130/104 H Pulse Oximetry 100 100 100 Oxygen Delivery 01/13/25 18:26 Temperature Pulse Rate 94 Respiratory Rate 17 Blood Pressure 132/78 Pulse Oximetry 100 Oxygen Delivery Exam Narrative: General: well appearing, appears stated age. HEENT: normocephalic, atraumatic. Mucous membranes moist. EOMI, PERRLA, bilateral sclera anicteric, no conjunctival injection. Neck supple without JVD, lymphadenopathy, or bruit. Respiratory: clear to ascultation bilaterally. No rales/rhonic/wheezes. Cardiovascular: Regular rate and rhythm, normal S1-S2 upon ascultation. No murmurs, rubs, or clicks. PMI is nondisplaced, capillary refill less than 3 second. Abdomen: Abdominal incision clean dry intact with Dermabond, no erythema no induration, abdominal edema 4+, bilateral thigh edema 4+ Extremities: No cyanosis, clubbing, or edema present. Pulses are palpable 2/2. Active ROM to all four extremities. Neuro: Alert and orientated x 4. PERRLA. Cranial nerves 2-12 intact without focal deficit. Skin: Warm, dry, and intact, without rash, erythema, or lesion. Psych: pleasant, cooperative, normal speech, normal affect, no hallucinations, no dysarthia H&P: Results Labs Labs: Short CBC 01/13/25 Range/Units 13:12 WBC 10.8 H (4.5-10.0) K/mm3 Hgb 7.1 L (12.0-15.0) g/dL Hct 24.4 L (37.0-47.0) % Plt Count 511 H (150-375) k/mm3 BMP 01/13/25 13:12 Sodium 135 L Potassium 4.1 Chloride 104 Carbon Dioxide 23 BUN 9 Creatinine 0.66 L Glucose 97 Calcium 9.1 Liver Function 01/13/25 Range/Units 13:12 Total Bilirubin 0.3 (0.2-1.3) mg/dL AST 28 (14-36) U/L ALT 18 (6-35) U/L Alkaline Phosphatase 57 (38-126) U/L Albumin 3.6 (3.5-5.1) g/dL Urine 01/13/25 Range/Units 15:23 Urine Color Yellow (Yellow) Urine Appearance Clear (Clear) Urine pH 6.0 (5.0-9.0) Ur Specific Wynne 1.021 (1.001-1.035) Urine Protein Negative (Negative) mg/dL Urine Glucose (UA) Negative (Negative) mg/dL Assessment and Plan Assessment and plan (1) Acute blood loss anemia: Code(s): D62 - Acute posthemorrhagic anemia Status: Acute Assessment and Plan: Secondary to abdominal surgery and possible abdominal hematoma Transfuse 2 units RBCs due to symptomatic anemia 7.1 Q.6 are H&H Patient is a lot of third-spacing will do 20 Lasix in between units of blood (2) Post-operative complication: Code(s): T81.9XXA - Unspecified complication of procedure, initial encounter Status: Acute Assessment and Plan: Postoperative changes along the anterior abdominal wall including likely correction of prior rectus diastases with couple large loculated fluid collections in the deep subcutaneous tissues at the anterolateral left and right abdominal wall most likely representing a postoperative hematoma/seromas although differential would include abscess Plastics consulted Plan for bilateral IR drains tomorrow NPO midnight Hold DVT prophylaxis (3) Syncope: Code(s): R55 - Syncope and collapse Status: Acute Assessment and Plan: Near-syncope, Likely from acute blood loss anemia CT head and neck negative for acute injury Orthostatic vital signs (4) Fluid overload: Code(s): E87.70 - Fluid overload, unspecified Status: Acute Assessment and Plan: See plan above Quality VTE Prophylaxis VTE prophylaxis: mechanical ordered If No VTE Prophylaxis Answer both mechanical and pharmacologic: Reason no pharmacologic proph: medical contraindication Hospitalist MIPS Advance Care Plan I have confirmed that the patient's Advanced Care Plan is present, code status is documented, or surrogate decision maker is listed in patient medical record.: Yes Medication Reconciliation I have utilized all available resources to obtain, update and review the patients current medications (includes all prescriptions, OTC, herbals, cannabis, and nutritional supplements).: Yes
--- NOTE | 2025-01-13 19:15 | PC.NURSE ---
Received report MARY ELLEN Campbell for cont. of care. PT AOx4, ambulatory to bathroom with steady gait and c/o 10/10 abdominal pain, refer to MAR for medication administration.
[2025-01-13] MEDS: MORPHINE SULFATE (*CRX) 2 MG/ML INJ IV PUSH ×2 (20:00→23:30)
[2025-01-13] MEDS: SODIUM CHLORIDE 0.9% IV 250 ML 30 ML IV CONT (20:20)
[2025-01-13] MEDS: TUBING, BLOOD PLUM PUMP TUBING 1 EACH XX (20:33)
--- NOTE | 2025-01-13 20:40 | PC.NURSE ---
Pt provided with apple juice and water.
--- NOTE | 2025-01-13 21:27 | ADMGEN ---
This patient, Priscilla Arreola, was admitted to 2 Medical Room 259-01. Patient/family oriented to hospital policies and general routines including ID bracelet, bed and alarms, visiting hours, pain management, procedures, bathroom and other care routines, personal items, smoking policy, room service/diet, and visiting hours. Information on how to activate the Rapid Response Team has been discussed. Patient/Family are encouraged to report perceived risks to care and to ask questions if they do not understand what they are told or what they should do.
[2025-01-13] MEDS: FUROSEMIDE INJ 40 MG/4 ML VIAL 20 MG IV PUSH (23:30)
[2025-01-13] MEDS: SODIUM CHLORIDE 0.9% IV 250 ML 30 ML (23:35)
[2025-01-14] VITALS (8 sets, daily range): BP systolic 113–141; BP diastolic 61–77; PULSE 83–101; RESP 14–20; TEMP 36.2–37.4; O2SAT 98–100; BMI 35.4
[2025-01-14] MEDS: ceFAZolin 1 GM in SODIUM CHLORIDE 0.9% IV 50 ML 100 ML IVPB ×2 (03:00→09:41)
[2025-01-14 05:00] LABS: Hematocrit 25.7 % (37.0-47.0); Hematocrit 26.2 % (37.0-47.0); Hemoglobin 7.9 g/dL (12.0-15.0); Immature Granulocyte Percent A 0.4 % (0-0.5); Lymphocytes Absolute Auto 1.78 K/mm3 (0.9-3.2); Mean Corpuscular HGB Conc 30.2 g/dl (32-36); Mean Corpuscular Hemoglobin 25.2 pg (26-34); Mean Corpuscular Volume 83.4 fl (80-100); Nucleated Red Blood Cells Absolute Auto 0.000 K/mm3 (0.0-0.012); Nucleated Red Blood Cells Perc 0.0 % (0.0-0.2); Platelet Count Result 466 k/mm3 (150-375); Red Blood Count 3.14 M/mm3 (4.2-5.4); White Blood Count 11.5 K/mm3 (4.5-10.0)
[2025-01-14 05:28] LABS: Anion Gap 6 mmol/L (4-12); Blood Urea Nitrogen 9 mg/dL (7-17); Calcium 8.7 mg/dL (8.4-10.2); Carbon Dioxide 23 mmol/L (22-30); Chloride 105 mmol/L (98-107); Estimated CRCL calculation 105 ml/min; Estimated Glomerular Filt Rate > 60; Glucose 102 mg/dL (65-110); Potassium 3.8 mmol/L (3.4-5.0); Sodium 134 mmol/L (137-145)
--- NOTE | 2025-01-14 08:37 | P.PNIM_ITS ---
Progress Note: A&P Assessment and Plan (1) Post-operative complication: Code(s): T81.9XXA - Unspecified complication of procedure, initial encounter Status: Acute Assessment and Plan: Recently underwent abdominoplasty in [facility] about two weeks ago. - CTA chest/abdomen/pelvis: No PE, acute cardiopulmonary disease, or acute intra-abdominal/pelvis process. Postoperative changes along the anterior abdominal wall including likely correction of prior rectus diastases with couple large loculated fluid collections in the deep subcutaneous tissues at the anterolateral left and right abdominal wall most likely representing a postoperative hematoma/seromas although differential would include abscess in the appropriate clinical setting. Started on Cefazolin in the ER, discontinued as does not appear infected given afebrile, barely elevated WBC, lack of rim enhancement on imaging and the patients description of the prior drainage Plastics consulted per prior provider note and recommended IR consult for drain placement Discussed patient with IR Dr. Guthrie who does not recommend drainage at this time as this does not appear infected and more complications come with drainage. Dr. Rose attempted to call Dr. Garner and voicemail left. Will continue to follow patients WBC trend and clinical presentation to reassess antibiotic and drain requirement (2) Acute blood loss anemia: Code(s): D62 - Acute posthemorrhagic anemia Status: Acute Assessment and Plan: H/H 7.1/24.4 on admission, repeat this am shows H/H 7.9/26.2 Secondary to abdominal surgery and possible abdominal hematoma as seen on imagi ng above Received 2 units pRBC on admission Repeat H/H 8.4/27.1 Denies any hematuria and hematochezia/melena Q.6 are H&H Iron panel and ferritin ordered B12 and folate ordered (3) Pre-syncope: Code(s): R55 - Syncope and collapse Status: Acute Assessment and Plan: Likely secondary to acute blood loss anemia related to post operative complications Chest XR: No acute process Head CT: No evidence for acute intracranial hemorrhage or calvarial fracture Orthostatic BP ordered Time Spent With Patient Time with patient: 25 - 35 minutes Subjective Date/time seen: 01/14/25 08:37 Interval history: 44-year-old female who is 2 weeks postop from abdominal plasty presents the hospital with increased weakness and syncope. She states she had a abdominoplasty with liposuction on 12/[address] Garner at [facility]. She stayed in [place] for 8 days prior to returning to [place]. Following the procedure she had a drain placed that stayed in when returning home. She states that Dr. Garner wanted this removed on Sunday 01/07, however her appointment was made for the following Friday with her PCP. She states that the drain still had a decent amount of red, bloody output needing to be drained approximately 3-4 hours with 30 cc each time. She notes that the drain fell out on its own on 01/09 while she was cleaning her home. She was doing well until she started having increased dizziness/lightheadedness with ambulation. She also noted a 15 lbs weight gain over a 15 day period with noted bilateral lower extremity edema and abdominal swelling. Denies any associated shortness of breath. Denies history of CHF. Discussed patient with IR Dr. Guthrie who does not recommend drainage at this time as this does not appear infected and more complications come with drainage. Dr. Rose attempted to call Dr. Garner and voicemail left. Patient is pleasant sitting up comfortably in bed. She continues to endorse mild lightheadedness but states this has improved since admission. She states that the swelling has much improved to the lower extremities but still endorses abdominal swelling along her lower abdomen. She denies any nausea/vomiting and is having normal bowel movements. Denies any blood in her stool. She has no other complaints denying chest pain, palpitations, and shortness of breath. Patient also has no complaints of dysuria, hematuria, and burning sensation with urination. Review of Systems Review of Systems: All systems reviewed & are unremarkable except as noted in HPI and below Exam Narrative: AF HR 83 RR 20 SpO2 98 BP 113/63 General: female in no acute respiratory distress who is nontoxic appearing, sitting up in bed. HEENT: Normocephalic. Atraumatic. Extraocular movement intact. Sclera clear and anicteric. No facial asymmetry. Chest: Lungs are clear to auscultation bilaterally. No wheezes or crackles. CV: Heart was regular rate and rhythm. Abd: Abdomen was soft. Tender to palpation along the lower abdomen with surgical incision extending across from hip to hip. Nondistended. Positive bowel sounds. Ext: No clubbing, cyanosis, or edema. DP pulses bilaterally. Neuro: Patient is alert and oriented x4. Speech is clear. Psych: Normal mood and affect. Patient is pleasant and cooperative. Skin: Warm and dry. No rashes noted. Well healing surgical incision along her lower abdomen with no noted erythema or drainage. Objective Data Vital Signs Vital Signs: Vital Signs - 24 hr 01/13/25 11:09 01/13/25 13:00 01/13/25 13:06 Temperature 98.5 F Pulse Rate 81 83 84 Respiratory Rate 16 13 Blood Pressure 119/77 124/71 Pulse Oximetry 100 100 Oxygen Delivery Room Air 01/13/25 14:11 01/13/25 15:45 01/13/25 16:20 Temperature Pulse Rate 85 87 83 Respiratory Rate 15 19 17 Blood Pressure 118/68 125/70 Pulse Oximetry 100 100 100 Oxygen Delivery 01/13/25 16:40 01/13/25 17:21 01/13/25 18:26 Temperature Pulse Rate 86 91 94 Respiratory Rate 19 16 17 Blood Pressure 130/104 H 132/78 Pulse Oximetry 100 100 Oxygen Delivery 01/13/25 19:28 01/13/25 20:01 01/13/25 20:13 Temperature 98.1 F Pulse Rate 82 84 90 Respiratory Rate 14 10 L 13 Blood Pressure 126/80 129/86 129/86 Pulse Oximetry 100 90 100 Oxygen Delivery 01/13/25 20:19 01/13/25 20:29 01/13/25 20:37 Temperature 98.1 F 98 F Pulse Rate 87 89 86 Respiratory Rate 14 18 14 Blood Pressure 128/64 125/56 L 117/65 Pulse Oximetry 100 100 100 Oxygen Delivery 01/13/25 21:40 01/13/25 21:42 01/13/25 22:37 Temperature 97.9 F 97.9 F 97.7 F Pulse Rate 78 78 86 Respiratory Rate 16 16 16 Blood Pressure 132/72 132/72 122/66 Pulse Oximetry 100 100 100 Oxygen Delivery 01/13/25 22:37 01/14/25 00:01 01/14/25 00:15 Temperature 97.2 F L 97.6 F 97.8 F Pulse Rate 88 95 86 Respiratory Rate 16 16 14 Blood Pressure 119/71 141/75 H 123/76 Pulse Oximetry 100 100 100 Oxygen Delivery 01/14/25 03:08 01/14/25 05:15 Temperature 97.1 F L 97.9 F Pulse Rate 92 86 Respiratory Rate 16 16 Blood Pressure 115/61 117/77 Pulse Oximetry 99 100 Oxygen Delivery Intake/Output Intake/Output: Intake & Output 01/11/25 01/12/25 01/13/25 01/14/25 23:59 23:59 23:59 23:59 Intake Total 1400 700 Output Total 1300 Balance 1400 -600 Meds/Results Medications: Active Medications Generic Name Dose Route Start Last Admin Trade Name Freq PRN Reason Stop Dose Admin Acetaminophen 650 mg 01/13/25 18:47 Acetaminophen 325 Mg Tablet PO Q4H PRN Mild Pain (1-3) or Fever Hydrocodone Bitart/Acetaminophen 1 tab 01/13/25 18:47 Hydrocodone/Acetaminophen (*Crx) 5-325 Mg Tablet PO Q4H PRN Moderate Pain (4-6) Docusate Sodium 100 mg 01/14/25 09:00 Docusate Sodium 100 Mg Capsule PO BID JAIMIE Cefazolin Sodium 1 gm/ Sodium 50 mls @ 100 mls/hr 01/14/25 02:00 01/14/25 03:30 Chloride IVPB Infused Q8H [facility] Infusion Morphine Sulfate 2 mg 01/13/25 18:47 01/13/25 23:30 Morphine Sulfate (*Crx) 2 Mg/Ml Inj IV PUSH 2 mg Q4H PRN Administration Pain Rated 7-10 Multivitamins/Calcium 1 tablet 01/14/25 09:00 Therapeutic Multivitamins/Minerals Tab (*Bkc) PO DAILY JAIMIE Naloxone HCl 0.1 mg 01/13/25 18:47 Naloxone Hcl 0.4 Mg/Ml Vial IV PUSH Q2M PRN Opiate Reversal Radiology Results: ITS Impressions Chest X-Ray 01/13/25 13:03 IMPRESSION: No acute process. Head CT 01/13/25 13:34 IMPRESSION: No evidence for acute intracranial hemorrhage or calvarial fracture. Chest/Abdomen/Pelvis CTA 01/13/25 17:04 IMPRESSION: 1. No pulmonary embolism or other acute cardiopulmonary disease. 2. Postoperative changes along the anterior abdominal wall including likely correction of prior rectus diastases with couple large loculated fluid collections in the deep subcutaneous tissues at the anterolateral left and right abdominal wall most likely representing a postoperative hematoma/seromas although differential would include abscess in the appropriate clinical setting. 2. No acute intra-abdominal/pelvic process. Labs Labs: Laboratory Results - last 24 hr 01/13/25 01/13/25 01/13/25 13:12 14:49 15:19 WBC 10.8 H RBC 2.90 L Hgb 7.1 L Hct 24.4 L MCV 84.1 MCH 24.5 L MCHC 29.1 L RDW 18.1 H Plt Count 511 H MPV 8.5 Immature Gran % (Auto) 0.7 H Neut % (Auto) 82.4 H Lymph % (Auto) 10.3 L [place] % (Auto) 6.0 Eos % (Auto) 0.3 Baso % (Auto) 0.3 Lymph # (Auto) 1.11 [place] # (Auto) 0.7 H Eos # (Auto) 0.0 Baso # (Auto) 0.0 Abs Immat Gran (auto) 0.08 H Absolute Neuts (auto) 8.9 H Absolute Nucleated RBC 0.000 Band Neutrophils % Not Reportable Nucleated RBC % 0.0 Platelet Estimate Increased Hypochromasia 1+ Anisocytosis 1+ Schistocytes None seen ESR > 140 H PT 12.9 INR 1.0 APTT 34.5 D-Dimer 1.69 H Sodium 135 L Potassium 4.1 Chloride 104 Carbon Dioxide 23 Anion Gap 8 BUN 9 Creatinine 0.66 L Estim Creat Clear Calc 109 Estimated GFR > 60 Glucose 97 Calcium 9.1 Total Bilirubin 0.3 AST 28 ALT 18 Alkaline Phosphatase 57 C-Reactive Protein Total Protein 7.6 Albumin 3.6 Urine Color Urine Appearance Urine pH Ur Specific [place] Urine Protein Urine Glucose (UA) Urine Ketones Ur Blood (Man) Urine Nitrate Urine Bilirubin Urine Urobilinogen Leukocyte Esterase Rfl Urine RBC Urine WBC Ur Squamous Epith Cells Urine Bacteria Urine Casts POC Urine HCG, Qual Negative Blood Type Antibody Screen Crossmatch 01/13/25 01/14/25 01/14/25 15:23 04:53 04:53 WBC 11.5 H RBC 3.14 L Hgb 7.9 L 7.9 L Hct 25.7 L MCV MCH MCHC RDW Plt Count MPV Immature Gran % (Auto) Neut % (Auto) Lymph % (Auto) [place] % (Auto) Eos % (Auto) Baso % (Auto) Lymph # (Auto) [place] # (Auto) Eos # (Auto) Baso # (Auto) Abs Immat Gran (auto) Absolute Neuts (auto) Absolute Nucleated RBC Band Neutrophils % Nucleated RBC % Platelet Estimate Hypochromasia Anisocytosis Schistocytes ESR PT INR APTT D-Dimer Sodium Potassium Chloride Carbon Dioxide Anion Gap BUN Creatinine Estim Creat Clear Calc Estimated GFR Glucose Calcium Total Bilirubin AST ALT Alkaline Phosphatase C-Reactive Protein 3.4 H Total Protein Albumin Urine Color Yellow Urine Appearance Clear Urine pH 6.0 Ur Specific [place] 1.021 Urine Protein Negative Urine Glucose (UA) Negative Urine Ketones 2+ H Ur Blood (Man) Negative Urine Nitrate Negative Urine Bilirubin Negative Urine Urobilinogen 0.2 Leukocyte Esterase Rfl Trace H Urine RBC 0-2 Urine WBC 0-5 Ur Squamous Epith Cells None seen Urine Bacteria None seen Urine Casts 0-2 POC Urine HCG, Qual Blood Type O Positive Antibody Screen Negative Crossmatch See Detail 01/14/25 04:53 WBC RBC Hgb Hct 26.2 L MCV 83.4 MCH 25.2 L MCHC 30.2 L RDW 17.2 H Plt Count 466 H MPV 8.5 Immature Gran % (Auto) 0.4 Neut % (Auto) 74.9 H Lymph % (Auto) 15.5 L [place] % (Auto) 7.9 Eos % (Auto) 1.0 Baso % (Auto) 0.3 Lymph # (Auto) 1.78 [place] # (Auto) 0.9 H Eos # (Auto) 0.1 Baso # (Auto) 0.0 Abs Immat Gran (auto) 0.05 H Absolute Neuts (auto) 8.6 H Absolute Nucleated RBC 0.000 Band Neutrophils % Nucleated RBC % 0.0 Platelet Estimate Hypochromasia Anisocytosis Schistocytes ESR PT INR APTT D-Dimer Sodium 134 L Potassium 3.8 Chloride 105 Carbon Dioxide 23 Anion Gap 6 BUN 9 Creatinine 0.69 L Estim Creat Clear Calc 105 Estimated GFR > 60 Glucose 102 Calcium 8.7 Total Bilirubin AST ALT Alkaline Phosphatase C-Reactive Protein Total Protein Albumin Urine Color Urine Appearance Urine pH Ur Specific [place] Urine Protein Urine Glucose (UA) Urine Ketones Ur Blood (Man) Urine Nitrate Urine Bilirubin Urine Urobilinogen Leukocyte Esterase Rfl Urine RBC Urine WBC Ur Squamous Epith Cells Urine Bacteria Urine Casts POC Urine HCG, Qual Blood Type Antibody Screen Crossmatch Quality VTE Prophylaxis VTE prophylaxis: mechanical ordered
--- NOTE | 2025-01-14 09:06 | PM.EVENT ---
Event Note Event Note Event Note: Called to evaluate 44yo F POD#16 after abdominoplasty procedure. currently AF, WBC 11.5 (no left shift) UA w trace leukocyte esterase - ?UTI Risk of draining a postoperative seroma (HU on CT = 1, c/w simple fluid) is to contaminate a sterile collection. Case d/w Archana Fernandez NP caring for patient. Once she has evaluated Ms Arreola, we will reconnect to discuss the case - and allow the patient to reabsorb the collection, versus percutaneous drainage.
[2025-01-14] MEDS: THERAPEUTIC MULTIVITAMINS/MINERALS TAB (*BKC) 1 TABLET PO (09:41)
[2025-01-14] MEDS: DOCUSATE SODIUM 100 MG CAPSULE PO ×2 (09:41→16:04)
[2025-01-14 10:20] LABS: Hematocrit 27.1 % (37.0-47.0); Hemoglobin 8.4 g/dL (12.0-15.0)
[2025-01-14 16:16] LABS: Iron 29 ug/dL (37-170)
[2025-01-14 16:25] LABS: Percent Iron Saturation 9 % (20-50)
[2025-01-14 16:51] LABS: Ferritin 25.60 ng/mL (6.24-137)
[2025-01-14 17:13] LABS: Vitamin B12 467.0 pg/mL (239-931)
[2025-01-15] VITALS (7 sets, daily range): BP systolic 97–135; BP diastolic 62–81; PULSE 79–96; RESP 14–20; TEMP 36.6–37.1; O2SAT 99–100
[2025-01-15] MEDS: HYDROcodone/acetaminophen (*CRX) 5-325 MG TABLET 1 TAB PO ×2 (00:17→12:54)
[2025-01-15 05:29] LABS: Hematocrit 28.6 % (37.0-47.0); Hemoglobin 8.4 g/dL (12.0-15.0); Mean Corpuscular HGB Conc 29.4 g/dl (32-36); Mean Corpuscular Hemoglobin 25.4 pg (26-34); Mean Corpuscular Volume 86.4 fl (80-100); Platelet Count Result 503 k/mm3 (150-375); Red Blood Count 3.31 M/mm3 (4.2-5.4); White Blood Count 8.4 K/mm3 (4.5-10.0)
[2025-01-15 05:50] LABS: Alanine Aminotransferase 13 U/L (6-35); Albumin Level 3.2 g/dL (3.5-5.1); Alkaline Phosphatase 49 U/L (38-126); Anion Gap 6 mmol/L (4-12); Aspartate Amino Transferase 24 U/L (14-36); Bilirubin,Total 0.2 mg/dL (0.2-1.3); Blood Urea Nitrogen 9 mg/dL (7-17); Calcium 8.7 mg/dL (8.4-10.2); Carbon Dioxide 24 mmol/L (22-30); Chloride 106 mmol/L (98-107); Estimated CRCL calculation 103 ml/min; Estimated Glomerular Filt Rate > 60; Glucose 89 mg/dL (65-110); Potassium 3.9 mmol/L (3.4-5.0); Sodium 136 mmol/L (137-145); Total Protein 7.0 g/dL (6.3-8.2)
--- NOTE | 2025-01-15 08:19 | PM.IMPN ---
Progress Note: A&P Assessment and Plan (1) Post-operative complication: Code(s): T81.9XXA - Unspecified complication of procedure, initial encounter Status: Acute Assessment and Plan: Recently underwent abdominoplasty in [facility] about two weeks ago. - CTA chest/abdomen/pelvis: No PE, acute cardiopulmonary disease, or acute intra-abdominal/pelvis process. Postoperative changes along the anterior abdominal wall including likely correction of prior rectus diastases with couple large loculated fluid collections in the deep subcutaneous tissues at the anterolateral left and right abdominal wall most likely representing a postoperative hematoma/seromas although differential would include abscess in the appropriate clinical setting. Started on Cefazolin in the ER, discontinued as does not appear infected given afebrile, no leukocytosis, lack of rim enhancement on imaging and the patients description of the prior drainage Plastics consulted per prior provider note and recommended IR consult for drain placement Discussed patient with IR Dr. Guthrie who does not recommend drainage at this time as this does not appear infected and more complications come with drainage. Dr. Rose discussed patient with Dr. Garner and states that he agrees to leave the collection alone at this time and continue to monitor. Will continue to follow patients WBC trend and clinical presentation to reassess antibiotic and drain requirement (2) Acute blood loss anemia: Code(s): D62 - Acute posthemorrhagic anemia Status: Acute Assessment and Plan: H/H 7.1/24.4 on admission, repeat this am shows H/H 7.9/26.2 Secondary to abdominal surgery and possible abdominal hematoma as seen on imaging above Received 2 units pRBC on admission Repeat H/H remains stable at 8.4/28.6 Denies any hematuria and hematochezia/melena Q.6 are H&H Iron low, TIBC normal, % saturation low, and ferritin WNL. Iron supplementation started. B12 and folate WNL (3) Pre-syncope: Code(s): R55 - Syncope and collapse Status: Acute Assessment and Plan: Likely secondary to acute blood loss anemia related to post operative complications Chest XR: No acute process Head CT: No evidence for acute intracranial hemorrhage or calvarial fracture Orthostatic BP unremarkable Time Spent With Patient Time with patient: 25 - 35 minutes Subjective Date/time seen: 01/15/25 08:19 Interval history: 44-year-old female who is 2 weeks postop from abdominal plasty presents the hospital with increased weakness and syncope. She states she had a abdominoplasty with liposuction on 12/[address] Garner at [facility]. She stayed in [place] for 8 days prior to returning to [place]. Following the procedure she had a drain placed that stayed in when returning home. She states that Dr. Garner wanted this removed on Sunday 01/07, however her appointment was made for the following Friday with her PCP. She states that the drain still had a decent amount of red, bloody output needing to be drained approximately 3-4 hours with 30 cc each time. She notes that the drain fell out on its own on 01/09 while she was cleaning her home. She was doing well until she started having increased dizziness/lightheadedness with ambulation. She also noted a 15 lbs weight gain over a 15 day period with noted bilateral lower extremity edema and abdominal swelling. Denies any associated shortness of breath. Denies history of CHF. Patient is pleasant sitting up comfortably in her chair. She continues to endorse abdominal discomfort more so around the surgical incision. She denies an chest pain, palpitations, shortness of breath, nausea/vomiting. Review of Systems Review of Systems: All systems reviewed & are unremarkable except as noted in HPI and below Exam Narrative: AF HR 96 RR 20 SpO2 100 BP 131/77 General: female in no acute respiratory distress who is nontoxic appearing, sitting up in chair HEENT: Normocephalic. Atraumatic. Extraocular movement intact. Sclera clear and anicteric. No facial asymmetry. Chest: Lungs are clear to auscultation bilaterally. No wheezes or crackles. CV: Heart was regular rate and rhythm. Abd: Abdomen was soft. Tender to palpation along the lower abdomen with surgical incision extending across from hip to hip. Nondistended. Positive bowel sounds. Ext: No clubbing, cyanosis, or edema. DP pulses bilaterally. Neuro: Patient is alert and oriented x4. Speech is clear. Psych: Normal mood and affect. Patient is pleasant and cooperative. Skin: Warm and dry. No rashes noted. Well healing surgical incision along her lower abdomen with no noted erythema or drainage. Objective Data Vital Signs Vital Signs: Vital Signs - 24 hr 01/14/25 11:43 01/14/25 13:59 01/14/25 21:30 Temperature 97.4 F L 97.9 F 99.4 F Pulse Rate 87 101 H 87 Respiratory Rate 16 16 20 Blood Pressure 118/75 119/70 115/68 Pulse Oximetry 100 100 100 01/15/25 06:00 Temperature 97.9 F Pulse Rate 79 Respiratory Rate 20 Blood Pressure 97/66 L Pulse Oximetry 99 Intake/Output Intake/Output: Intake & Output 01/12/25 01/13/25 01/14/25 01/15/25 23:59 23:59 23:59 23:59 Intake Total 1400 1530 300 Output Total 1300 300 Balance 1400 230 0 Meds/Results Medications: Active Medications Generic Name Dose Route Start Last Admin Trade Name Freq PRN Reason Stop Dose Admin Acetaminophen 650 mg 01/13/25 18:47 Acetaminophen 325 Mg Tablet PO Q4H PRN Mild Pain (1-3) or Fever Hydrocodone Bitart/Acetaminophen 1 tab 01/13/25 18:47 01/15/25 00:17 Hydrocodone/Acetaminophen (*Crx) 5-325 Mg Tablet PO 1 tab Q4H PRN Administration Moderate Pain (4-6) Docusate Sodium 100 mg 01/14/25 09:00 01/14/25 16:04 Docusate Sodium 100 Mg Capsule PO 100 mg BID JAIMIE Administration Morphine Sulfate 2 mg 01/13/25 18:47 01/13/25 23:30 Morphine Sulfate (*Crx) 2 Mg/Ml Inj IV PUSH 2 mg Q4H PRN Administration Pain Rated 7-10 Multivitamins/Calcium 1 tablet 01/14/25 09:00 01/14/25 09:41 Therapeutic Multivitamins/Minerals Tab (*Bkc) PO 1 tablet DAILY JAIMIE Administration Naloxone HCl 0.1 mg 01/13/25 18:47 Naloxone Hcl 0.4 Mg/Ml Vial IV PUSH Q2M PRN Opiate Reversal Radiology Results: ITS Impressions Chest X-Ray 01/13/25 13:03 IMPRESSION: No acute process. Head CT 01/13/25 13:34 IMPRESSION: No evidence for acute intracranial hemorrhage or calvarial fracture. Chest/Abdomen/Pelvis CTA 01/13/25 17:04 IMPRESSION: 1. No pulmonary embolism or other acute cardiopulmonary disease. 2. Postoperative changes along the anterior abdominal wall including likely correction of prior rectus diastases with couple large loculated fluid collections in the deep subcutaneous tissues at the anterolateral left and right abdominal wall most likely representing a postoperative hematoma/seromas although differential would include abscess in the appropriate clinical setting. 2. No acute intra-abdominal/pelvic process. Labs Labs: Laboratory Results - last 24 hr 01/14/25 01/14/25 01/15/25 04:53 10:12 05:07 WBC 8.4 RBC 3.31 L Hgb 8.4 L 8.4 L Hct 27.1 L 28.6 L MCV 86.4 MCH 25.4 L MCHC 29.4 L RDW 17.5 H Plt Count 503 H MPV 8.5 Sodium 136 L Potassium 3.9 Chloride 106 Carbon Dioxide 24 Anion Gap 6 BUN 9 Creatinine 0.70 Estim Creat Clear Calc 103 Estimated GFR > 60 Glucose 89 Calcium 8.7 Iron 29 L TIBC 318 % Saturation 9 L Ferritin 25.60 Total Bilirubin 0.2 AST 24 ALT 13 Alkaline Phosphatase 49 Total Protein 7.0 Albumin 3.2 L Vitamin B12 467.0 Folate 8.5 Quality VTE Prophylaxis VTE prophylaxis: mechanical ordered
[2025-01-15] MEDS: THERAPEUTIC MULTIVITAMINS/MINERALS TAB (*BKC) 1 TABLET PO (09:12)
[2025-01-15] MEDS: DOCUSATE SODIUM 100 MG CAPSULE PO (09:12)
[2025-01-15] MEDS: FERROUS SULFATE 325 MG TABLET DR PO (09:12)
[2025-01-15] MEDS: ACETAMINOPHEN 325 MG TABLET 650 MG PO (09:14)
[2025-01-15] MEDS: MORPHINE SULFATE (*CRX) 2 MG/ML INJ IV PUSH (21:45)
[2025-01-16 05:18] LABS: Hematocrit 27.2 % (37.0-47.0); Hemoglobin 8.1 g/dL (12.0-15.0); Mean Corpuscular HGB Conc 29.8 g/dl (32-36); Mean Corpuscular Hemoglobin 25.5 pg (26-34); Mean Corpuscular Volume 85.5 fl (80-100); Platelet Count Result 490 k/mm3 (150-375); Red Blood Count 3.18 M/mm3 (4.2-5.4); White Blood Count 7.9 K/mm3 (4.5-10.0)
[2025-01-16 05:45] LABS: Alanine Aminotransferase 15 U/L (6-35); Albumin Level 3.1 g/dL (3.5-5.1); Alkaline Phosphatase 57 U/L (38-126); Anion Gap 4 mmol/L (4-12); Aspartate Amino Transferase 26 U/L (14-36); Bilirubin,Total 0.3 mg/dL (0.2-1.3); Blood Urea Nitrogen 10 mg/dL (7-17); Calcium 8.3 mg/dL (8.4-10.2); Carbon Dioxide 26 mmol/L (22-30); Chloride 104 mmol/L (98-107); Estimated CRCL calculation 105 ml/min; Estimated Glomerular Filt Rate > 60; Glucose 110 mg/dL (65-110); Potassium 3.3 mmol/L (3.4-5.0); Sodium 134 mmol/L (137-145); Total Protein 6.6 g/dL (6.3-8.2)
[2025-01-16 06:00] VITALS: BP 110/70; PULSE 93; RESP 16; TEMP 37.3; O2SAT 100
[2025-01-16] MEDS: THERAPEUTIC MULTIVITAMINS/MINERALS TAB (*BKC) 1 TABLET PO (08:40)
[2025-01-16] MEDS: DOCUSATE SODIUM 100 MG CAPSULE PO ×2 (08:40→17:31)
[2025-01-16] MEDS: FERROUS SULFATE 325 MG TABLET DR PO (08:40)
[2025-01-16 12:52] VITALS: TEMP 36.9
[2025-01-16 14:00] VITALS: BP 120/64; PULSE 86; RESP 14; TEMP 36.7; O2SAT 100
--- NOTE | 2025-01-16 16:10 | PM.IMPN ---
Progress Note: A&P Assessment and Plan (1) Post-operative complication: Code(s): T81.9XXA - Unspecified complication of procedure, initial encounter Status: Acute Assessment and Plan: Recently underwent abdominoplasty in [facility] about two weeks ago. - CTA chest/abdomen/pelvis: No PE, acute cardiopulmonary disease, or acute intra-abdominal/pelvis process. Postoperative changes along the anterior abdominal wall including likely correction of prior rectus diastases with couple large loculated fluid collections in the deep subcutaneous tissues at the anterolateral left and right abdominal wall most likely representing a postoperative hematoma/seromas although differential would include abscess in the appropriate clinical setting. Started on Cefazolin in the ER, discontinued as does not appear infected given afebrile, no leukocytosis, lack of rim enhancement on imaging and the patients description of the prior drainage Plastics consulted per prior provider note and recommended IR consult for drain placement Discussed patient with IR Dr. Guthrie who does not recommend drainage at this time as this does not appear infected and more complications come with drainage. Dr. Rose discussed patient with Dr. Garner and states that he agrees to leave the collection alone at this time and continue to monitor. Patient endorsing increased abdominal pain worse to the left lower quadrant in the right along the surgical incision and states that the abdomen still feels harder. Denies any associated nausea/vomiting and is having bowel movements. Given the prior abnormalities on CT imaging will obtain a another CT to reassess the hematoma/seroma. WBC remain within normal limits and she is afebrile. No noted redness or drainage from the incision site on exam. No signs of dehiscence. Repeat CT abdomen pelvis, read pending however fluid collection appears larger on personal interpretation. Once official read placed, consider surgical consult. Will continue to follow patients WBC trend and clinical presentation to reassess antibiotic and drain requirement (2) Acute blood loss anemia: Code(s): D62 - Acute posthemorrhagic anemia Status: Acute Assessment and Plan: H/H 7.1/24.4 on admission, repeat this am shows H/H 7.9/26.2 Secondary to abdominal surgery and possible abdominal hematoma as seen on imaging above Received 2 units pRBC on admission Repeat H/H remains stable at 8.4/28.6 Denies any hematuria and hematochezia/melena Q.6 are H&H Iron low, TIBC normal, % saturation low, and ferritin WNL. Iron supplementation started. B12 and folate WNL (3) Pre-syncope: Code(s): R55 - Syncope and collapse Status: Acute Assessment and Plan: Likely secondary to acute blood loss anemia related to post operative complications Chest XR: No acute process Head CT: No evidence for acute intracranial hemorrhage or calvarial fracture Orthostatic BP unremarkable Denies dizziness/lightheadedness today. Time Spent With Patient Time with patient: 25 - 35 minutes Subjective Date/time seen: 01/16/25 16:10 Interval history: 44-year-old female who is 2 weeks postop from abdominal plasty presents the hospital with increased weakness and syncope. She states she had a abdominoplasty with liposuction on 12/[address] Garner at [facility]. She stayed in [place] for 8 days prior to returning to [place]. Following the procedure she had a drain placed that stayed in when returning home. She states that Dr. Garner wanted this removed on Sunday 01/07, however her appointment was made for the following Friday with her PCP. She states that the drain still had a decent amount of red, bloody output needing to be drained approximately 3-4 hours with 30 cc each time. She notes that the drain fell out on its own on 01/09 while she was cleaning her home. She was doing well until she started having increased dizziness/lightheadedness with ambulation. She also noted a 15 lbs weight gain over a 15 day period with noted bilateral lower extremity edema and abdominal swelling. Denies any associated shortness of breath. Denies history of CHF. Patient is pleasant sitting up comfortably in her chair. She states that she feels worse today compared to yesterday. She continues to endorse abdominal discomfort more so around the surgical incision and on the left side of her abdomen. She states that the abdomen feels harder and notes increased skin pulling. She denies an chest pain, palpitations, shortness of breath, nausea/vomiting. Review of Systems Review of Systems: All systems reviewed & are unremarkable except as noted in HPI and below Exam Narrative: AF HR 86 RR14 Spo2 100 BP 120/64 General: female in no acute respiratory distress who is nontoxic appearing, sitting up in chair HEENT: Normocephalic. Atraumatic. Extraocular movement intact. Sclera clear and anicteric. No facial asymmetry. Chest: Lungs are clear to auscultation bilaterally. No wheezes or crackles. CV: Heart was regular rate and rhythm. Abd: Abdomen is hard on palpation to the LLQ. Tender to palpation along the lower abdomen with surgical incision extending across from hip to hip, worse on L than R. Nondistended. Positive bowel sounds. No signs of surgical dehiscence. Ext: No clubbing, cyanosis, or edema. DP pulses bilaterally. Neuro: Patient is alert and oriented x4. Speech is clear. Psych: Normal mood and affect. Patient is pleasant and cooperative. Skin: Warm and dry. No rashes noted. Well healing surgical incision along her lower abdomen with no noted erythema or drainage. Objective Data Vital Signs Vital Signs: Vital Signs - 24 hr 01/15/25 20:00 01/15/25 20:50 01/16/25 06:00 Temperature 98.7 F 99.2 F Pulse Rate 89 93 Respiratory Rate 18 16 Blood Pressure 135/67 110/70 Pulse Oximetry 100 100 Oxygen Delivery Room Air 01/16/25 08:40 01/16/25 12:52 01/16/25 14:00 Temperature 98.5 F 98.1 F Pulse Rate 86 Respiratory Rate 14 Blood Pressure 120/64 Pulse Oximetry 100 Oxygen Delivery Room Air Intake/Output Intake/Output: Intake & Output 01/13/25 01/14/25 01/15/25 01/16/25 23:59 23:59 23:59 23:59 Intake Total 1400 1530 1870 780 Output Total 1300 300 Balance 3430 446 5260 780 Meds/Results Medications: Active Medications Generic Name Dose Route Start Last Admin Trade Name Freq PRN Reason Stop Dose Admin Acetaminophen 650 mg 01/13/25 18:47 01/15/25 09:14 Acetaminophen 325 Mg Tablet PO 650 mg Q4H PRN Administration Mild Pain (1-3) or Fever Hydrocodone Bitart/Acetaminophen 1 tab 01/13/25 18:47 01/15/25 12:54 Hydrocodone/Acetaminophen (*Crx) 5-325 Mg Tablet PO 1 tab Q4H PRN Administration Moderate Pain (4-6) Docusate Sodium 100 mg 01/14/25 09:00 01/16/25 08:40 Docusate Sodium 100 Mg Capsule PO 100 mg BID JAIMIE Administration Ferrous Sulfate 325 mg 01/15/25 09:00 01/16/25 08:40 Ferrous Sulfate [address] PO 325 mg DAILY JAIMIE Administration Morphine Sulfate 2 mg 01/13/25 18:47 01/15/25 21:45 Morphine Sulfate (*Crx) 2 Mg/Ml Inj IV PUSH 2 mg Q4H PRN Administration Pain Rated 7-10 Multivitamins/Calcium 1 tablet 01/14/25 09:00 01/16/25 08:40 Therapeutic Multivitamins/Minerals Tab (*Bkc) PO 1 tablet DAILY JAIMIE Administration Naloxone HCl 0.1 mg 01/13/25 18:47 Naloxone Hcl 0.4 Mg/Ml Vial IV PUSH Q2M PRN Opiate Reversal Radiology Results: ITS Impressions Chest X-Ray 01/13/25 13:03 IMPRESSION: No acute process. Head CT 01/13/25 13:34 IMPRESSION: No evidence for acute intracranial hemorrhage or calvarial fracture. Chest/Abdomen/Pelvis CTA 01/13/25 17:04 IMPRESSION: 1. No pulmonary embolism or other acute cardiopulmonary disease. 2. Postoperative changes along the anterior abdominal wall including likely correction of prior rectus diastases with couple large loculated fluid collections in the deep subcutaneous tissues at the anterolateral left and right abdominal wall most likely representing a postoperative hematoma/seromas although differential would include abscess in the appropriate clinical setting. 2. No acute intra-abdominal/pelvic process. Labs Labs: Laboratory Results - last 24 hr 01/16/25 04:45 WBC 7.9 RBC 3.18 L Hgb 8.1 L Hct 27.2 L MCV 85.5 MCH 25.5 L MCHC 29.8 L RDW 17.5 H Plt Count 490 H MPV 8.6 Sodium 134 L Potassium 3.3 L Chloride 104 Carbon Dioxide 26 Anion Gap 4 BUN 10 Creatinine 0.69 L Estim Creat Clear Calc 105 Estimated GFR > 60 Glucose 110 Calcium 8.3 L Total Bilirubin 0.3 AST 26 ALT 15 Alkaline Phosphatase 57 Total Protein 6.6 Albumin 3.1 L Quality VTE Prophylaxis VTE prophylaxis: mechanical ordered
[2025-01-16] MEDS: cefTRIAXone 1 GM in SODIUM CHLORIDE 0.9% IV 50 ML 100 ML IVPB (18:11)
[2025-01-16 22:00] VITALS: BP 124/70; PULSE 96; RESP 20; TEMP 37.3; O2SAT 100
[2025-01-16] MEDS: HYDROcodone/acetaminophen (*CRX) 5-325 MG TABLET 1 TAB PO (22:31)
[2025-01-17 05:21] LABS: Hematocrit 29.4 % (37.0-47.0); Hemoglobin 8.5 g/dL (12.0-15.0); Mean Corpuscular HGB Conc 28.9 g/dl (32-36); Mean Corpuscular Hemoglobin 25.2 pg (26-34); Mean Corpuscular Volume 87.2 fl (80-100); Platelet Count Result 510 k/mm3 (150-375); Red Blood Count 3.37 M/mm3 (4.2-5.4); White Blood Count 8.3 K/mm3 (4.5-10.0)
[2025-01-17 05:39] LABS: Alanine Aminotransferase 18 U/L (6-35); Albumin Level 3.4 g/dL (3.5-5.1); Alkaline Phosphatase 60 U/L (38-126); Aspartate Amino Transferase 28 U/L (14-36); Bilirubin,Total 0.2 mg/dL (0.2-1.3); Blood Urea Nitrogen 6 mg/dL (7-17); Calcium 8.8 mg/dL (8.4-10.2); Carbon Dioxide 27 mmol/L (22-30); Estimated CRCL calculation 109 ml/min; Estimated Glomerular Filt Rate > 60; Glucose 90 mg/dL (65-110); Total Protein 7.2 g/dL (6.3-8.2)
[2025-01-17 06:00] VITALS: BP 119/71; PULSE 82; RESP 18; TEMP 36.5; O2SAT 100
[2025-01-17 06:06] LABS: Anion Gap 5 mmol/L (4-12); Chloride 106 mmol/L (98-107); Potassium 4.1 mmol/L (3.4-5.0); Sodium 138 mmol/L (137-145)
--- NOTE | 2025-01-17 07:34 | PM.IMPN ---
Progress Note: A&P Assessment and Plan (1) Post-operative complication: Code(s): T81.9XXA - Unspecified complication of procedure, initial encounter Status: Acute Assessment and Plan: Recently underwent abdominoplasty in [facility] about two weeks ago. - CTA chest/abdomen/pelvis: No PE, acute cardiopulmonary disease, or acute intra-abdominal/pelvis process. Postoperative changes along the anterior abdominal wall including likely correction of prior rectus diastases with couple large loculated fluid collections in the deep subcutaneous tissues at the anterolateral left and right abdominal wall most likely representing a postoperative hematoma/seromas although differential would include abscess in the appropriate clinical setting. Started on Cefazolin in the ER, discontinued as does not appear infected given afebrile, no leukocytosis, lack of rim enhancement on imaging and the patients description of the prior drainage Plastics consulted per prior provider note and recommended IR consult for drain placement Discussed patient with IR Dr. Guthrie who does not recommend drainage at this time as this does not appear infected and more complications come with drainage. Dr. Rose discussed patient with Dr. Garner and states that he agrees to leave the collection alone at this time and continue to monitor. 01/17: WBC remain within normal limits and she is afebrile. Slight warmth and redness noted to the lateral aspect of the incision on the left hip. No drainage. No signs of dehiscence. Repeat CT abdomen pelvis 01/16: Increasing size of the bilateral subcutaneous fluid collections over the left lower anterolateral and right lateral abdomen, with increased peripheral enhancement. These may represent postoperative seromas/hematomas versus developing abscess. Increasing dermal thickening and subcutaneous stranding over the bilateral lower anterolateral abdomen, correlate for signs of cellulitis. Started on IV Rocephin for possible cellulitis US guided drain ordered with gram stain and culture to be obtained Plastics reconsulted as patient will require a drain placed by IR and this will need followed by plastics (2) Acute blood loss anemia: Code(s): D62 - Acute posthemorrhagic anemia Status: Acute Assessment and Plan: H/H 7.1/24.4 on admission, repeat this am shows H/H 7.9/26.2 Secondary to abdominal surgery and possible abdominal hematoma as seen on imaging above Received 2 units pRBC on admission Repeat H/H remains stable at 8.5/29.4 Denies any hematuria and hematochezia/melena Q.6 are H&H Iron low, TIBC normal, % saturation low, and ferritin WNL. Iron supplementation started. B12 and folate WNL (3) Pre-syncope: Code(s): R55 - Syncope and collapse Status: Acute Assessment and Plan: Likely secondary to acute blood loss anemia related to post operative complications Chest XR: No acute process Head CT: No evidence for acute intracranial hemorrhage or calvarial fracture Orthostatic BP unremarkable Denies dizziness/lightheadedness today. Time Spent With Patient Time with patient: 25 - 35 minutes Subjective Date/time seen: 01/17/25 07:34 Interval history: 44-year-old female who is 2 weeks postop from abdominal plasty presents the hospital with increased weakness and syncope. She states she had a abdominoplasty with liposuction on 12/[address] Garner at [facility]. She stayed in [place] for 8 days prior to returning to [place]. Following the procedure she had a drain placed that stayed in when returning home. She states that Dr. Garner wanted this removed on Sunday 01/07, however her appointment was made for the following Friday with her PCP. She states that the drain still had a decent amount of red, bloody output needing to be drained approximately 3-4 hours with 30 cc each time. She notes that the drain fell out on its own on 01/09 while she was cleaning her home. She was doing well until she started having increased dizziness/lightheadedness with ambulation. She also noted a 15 lbs weight gain over a 15 day period with noted bilateral lower extremity edema and abdominal swelling. Denies any associated shortness of breath. Denies history of CHF. Patient is pleasant sitting comfortably in her chair. She continues to endorse abdominal discomfort with increased tenderness along the incision especially on the left side. She also endorses warmth to the left side of the incision. She denies any chest pain, shortness a breath, palpitations, nausea/vomiting, and is having bowel movements and passing flatness. Patient also denies any dizziness or lightheadedness. Given increasing size of the hematoma/seroma seen on the CT obtained yesterday discussed patient with IR who plan to place drains today. Also discussed patient with Plastic surgery who will be following the drains following placement. Review of Systems Review of Systems: All systems reviewed & are unremarkable except as noted in HPI and below Exam Narrative: AF HR 82 RR 18 Spo2 100 BP 119/71 General: female in no acute respiratory distress who is nontoxic appearing, sitting up in chair HEENT: Normocephalic. Atraumatic. Extraocular movement intact. Sclera clear and anicteric. No facial asymmetry. Chest: Lungs are clear to auscultation bilaterally. No wheezes or crackles. CV: Heart was regular rate and rhythm. Abd: Abdomen is hard on palpation to the LLQ. Tender to palpation along the lower abdomen with surgical incision extending across from hip to hip, worse on L than R. Nondistended. Positive bowel sounds. Ext: No clubbing, cyanosis, or edema. DP pulses bilaterally. Neuro: Patient is alert and oriented x4. Speech is clear. Psych: Normal mood and affect. Patient is pleasant and cooperative. Skin: Warm and dry. No rashes noted. Slight warmth and redness noted to the lateral aspect of the incision on the left hip. No drainage. No signs of dehiscence. Objective Data Vital Signs Vital Signs: Vital Signs - 24 hr 01/16/25 08:40 01/16/25 12:52 01/16/25 14:00 Temperature 98.5 F 98.1 F Pulse Rate 86 Respiratory Rate 14 Blood Pressure 120/64 Pulse Oximetry 100 Oxygen Delivery Room Air 01/16/25 20:00 01/16/25 22:00 01/17/25 06:00 Temperature 99.1 F 97.7 F Pulse Rate 96 82 Respiratory Rate 20 18 Blood Pressure 124/70 119/71 Pulse Oximetry 100 100 Oxygen Delivery Room Air Intake/Output Intake/Output: Intake & Output 01/14/25 01/15/25 01/16/25 01/17/25 23:59 23:59 23:59 23:59 Intake Total 1530 1870 1280 300 Output Total 1300 300 Balance 230 1570 1280 300 Meds/Results Medications: Active Medications Generic Name Dose Route Start Last Admin Trade Name Freq PRN Reason Stop Dose Admin Acetaminophen 650 mg 01/13/25 18:47 01/15/25 09:14 Acetaminophen 325 Mg Tablet PO 650 mg Q4H PRN Administration Mild Pain (1-3) or Fever Hydrocodone Bitart/Acetaminophen 1 tab 01/13/25 18:47 01/16/25 22:31 Hydrocodone/Acetaminophen (*Crx) 5-325 Mg Tablet PO 1 tab Q4H PRN Administration Moderate Pain (4-6) Docusate Sodium 100 mg 01/14/25 09:00 01/16/25 17:31 Docusate Sodium 100 Mg Capsule PO 100 mg BID JAIMIE Administration Ferrous Sulfate 325 mg 01/15/25 09:00 01/16/25 08:40 Ferrous Sulfate [address] PO 325 mg DAILY JAIMIE Administration Ceftriaxone Sodium 1 gm/ 50 mls @ 100 mls/hr 01/16/25 18:00 01/16/25 18:41 Sodium Chloride IVPB Infused Q24H JAIMIE Infusion Morphine Sulfate 2 mg 01/13/25 18:47 01/15/25 21:45 Morphine Sulfate (*Crx) 2 Mg/Ml Inj IV PUSH 2 mg Q4H PRN Administration Pain Rated 7-10 Multivitamins/Calcium 1 tablet 01/14/25 09:00 01/16/25 08:40 Therapeutic Multivitamins/Minerals Tab (*Bkc) PO 1 tablet DAILY JAIMIE Administration Naloxone HCl 0.1 mg 01/13/25 18:47 Naloxone Hcl 0.4 Mg/Ml Vial IV PUSH Q2M PRN Opiate Reversal Radiology Results: ITS Impressions Chest X-Ray 01/13/25 13:03 IMPRESSION: No acute process. Head CT 01/13/25 13:34 IMPRESSION: No evidence for acute intracranial hemorrhage or calvarial fracture. Chest/Abdomen/Pelvis CTA 01/13/25 17:04 IMPRESSION: 1. No pulmonary embolism or other acute cardiopulmonary disease. 2. Postoperative changes along the anterior abdominal wall including likely correction of prior rectus diastases with couple large loculated fluid collections in the deep subcutaneous tissues at the anterolateral left and right abdominal wall most likely representing a postoperative hematoma/seromas although differential would include abscess in the appropriate clinical setting. 2. No acute intra-abdominal/pelvic process. Abdomen/Pelvis CT 01/16/25 17:03 IMPRESSION: Mild esophagitis/gastritis. Mild hepatomegaly. Increasing size of the bilateral subcutaneous fluid collections over the left lower anterolateral and right lateral abdomen, with increased peripheral enhancement. These may represent postoperative seromas/hematomas versus developing abscess. Increasing dermal thickening and subcutaneous stranding over the bilateral lower anterolateral abdomen, correlate for signs of cellulitis. Labs Labs: Laboratory Results - last 24 hr 01/17/25 04:35 WBC 8.3 RBC 3.37 L Hgb 8.5 L Hct 29.4 L MCV 87.2 MCH 25.2 L MCHC 28.9 L RDW 17.7 H Plt Count 510 H MPV 8.6 Sodium 138 Potassium 4.1 Chloride 106 Carbon Dioxide 27 Anion Gap 5 BUN 6 L Creatinine 0.66 L Estim Creat Clear Calc 109 Estimated GFR > 60 Glucose 90 Calcium 8.8 Total Bilirubin 0.2 AST 28 ALT 18 Alkaline Phosphatase 60 Total Protein 7.2 Albumin 3.4 L Quality VTE Prophylaxis VTE prophylaxis: mechanical ordered
[2025-01-17] MEDS: MORPHINE SULFATE (*CRX) 2 MG/ML INJ IV PUSH ×2 (13:42→21:28)
[2025-01-17 14:06] VITALS: BP 123/79; PULSE 80; RESP 16; TEMP 37.2; O2SAT 99
[2025-01-17 14:21] VITALS: BP 129/78; PULSE 77; RESP 16; TEMP 37.1; O2SAT 100
--- NOTE | 2025-01-17 17:03 | P.CONS_ITS ---
Assessment and Plan Assessment and plan (1) Hematoma of abdominal wall: Qualifiers: Encounter type: initial encounter Qualified Code(s): S30.1XXA - Contusion of abdominal wall, initial encounter Code(s): S30.1XXA - Contusion of abdominal wall, initial encounter Status: Acute Assessment and Plan: 44yo female 3 weeks s/p abdominoplasty with liposuction in [place] with post- operative complication of hematoma/seroma ct images reviewed and agree with reports discussed impression and suspected Dx and hope that symptoms continued to resolve with conservative post-op mgmt. no surgical intervention indicated at this time Plan: 1) continue drains and record output 2) abdominal binder at all times 3) activity restrictions reviewed 4) discussed will f/u in AM and if stable would likely suggest discharge with in office f/u (2) Post-operative complication: Qualifiers: Surgical complication system/body Area: subcutaneous tissue Surgical complication type: seroma Procedure type: non-dermatologic Qualified Code(s): L76.34 - Postprocedural seroma of skin and subcutaneous tissue following other procedure Code(s): T81.9XXA - Unspecified complication of procedure, initial encounter Status: Acute HPI Data of Consult Date/Time: 01/17/25 17:03 Requesting Physician: Zonia Valderrama MD Primary Care Provider: Rigoberto PalaciosMD Consult Narrative Narrative: patient present to [place] ER after dizziness and fall ~2.5 weeks s/p abdominoplasty and liposuction in [place] noted to have low Hgb and fluid collecitons on CT. admitted for transfusion and eval and mgmt. plastics consulted for further eval given nature of issue. I saw and evaluated patient today at bedside after she had two 10 [place] drains placed under u/s guidance by IR. Patient reports generally feeling better and asymptomatic at this time. patient has not been wearing abdominal binder. [facility] Past Medical History Medical History (Updated 01/17/25 @ 17:08 by Frederic Zuñiga MD) No active medical problems Family History Family History (Updated 01/13/25 @ 22:02 by Melissa Segovia RN) Other Patient's mother is Social History Social History Smoking status: Former smoker Smokeless tobacco user: other Alcohol intake: former Substance use: never Substance use type: does not use Do You Feel Safe in your Home?: Yes Lack of Transportation: No Lack of Food: Never True Current Housing: I Have Housing Concerned About Future Housing: No Difficulty Paying Gas/Electric Bills: No Difficulty Paying for Meds: No Currently Unemployed: No Education: High School Diploma/GED Difficulty w/ Childcare or Family Care: No Gender identity (if verbalized by the patient): Female Spiritual care concerns: No Meds Home Medications and Allergies Home Medications ?Medication ?Instructions ?Recorded ?Confirmed ?Type [id number]-sqkg-minerals 18 1 tablet PO DAILY 01/13/25 01/13/25 History mg-0.4 mg tablet Allergies Allergy/AdvReac Type Severity Reaction Status Date / Time No Known Allergies Allergy Verified 02/07/21 19:45 Vital Signs Vital Signs - 24 hr 01/16/25 20:00 01/16/25 22:00 01/17/25 06:00 Temperature 37.3 C 36.5 C Pulse Rate 96 82 Respiratory Rate 20 18 Blood Pressure 124/70 119/71 Pulse Oximetry 100 100 Oxygen Delivery Room Air 01/17/25 10:38 01/17/25 14:06 01/17/25 14:21 Temperature 37.2 C 37.1 C Pulse Rate 80 77 Respiratory Rate 16 16 Blood Pressure 123/79 129/78 Pulse Oximetry 99 100 Oxygen Delivery Room Air Exam 2 Narrative: lower abdominal incision well healed. drains in place with darker brown serous fluid right side and serosanguinous fluid in left drain approximately 40 and 60 cc respectively. no appreciable erythema. umbilicus viable Results Labs 01/17/25 04:35 01/17/25 04:35 Labs: Short CBC 01/17/25 Range/Units 04:35 WBC 8.3 (4.5-10.0) K/mm3 Hgb 8.5 L (12.0-15.0) g/dL Hct 29.4 L (37.0-47.0) % Plt Count 510 H (150-375) k/mm3 BMP 01/17/25 04:35 Sodium 138 Potassium 4.1 Chloride 106 Carbon Dioxide 27 BUN 6 L Creatinine 0.66 L Glucose 90 Calcium 8.8 Liver Function 01/17/25 Range/Units 04:35 Total Bilirubin 0.2 (0.2-1.3) mg/dL AST 28 (14-36) U/L ALT 18 (6-35) U/L Alkaline Phosphatase 60 (38-126) U/L Albumin 3.4 L (3.5-5.1) g/dL
[2025-01-17] MEDS: HYDROcodone/acetaminophen (*CRX) 5-325 MG TABLET 1 TAB PO ×2 (17:30→23:35)
[2025-01-17] MEDS: cefTRIAXone 1 GM in SODIUM CHLORIDE 0.9% IV 50 ML 100 ML IVPB (17:31)
[2025-01-17] MEDS: DOCUSATE SODIUM 100 MG CAPSULE PO (17:31)
[2025-01-17 21:21] VITALS: BP 128/67; PULSE 88; RESP 20; TEMP 36.5; O2SAT 100
[2025-01-18] MEDS: HYDROcodone/acetaminophen (*CRX) 10-325 MG TABLET 1 TAB PO ×3 (01:29→17:26)
[2025-01-18 04:56] VITALS: BP 101/61; PULSE 71; RESP 20; TEMP 36.6; O2SAT 100
[2025-01-18 05:23] LABS: Hematocrit 29.0 % (37.0-47.0); Hemoglobin 8.6 g/dL (12.0-15.0); Mean Corpuscular HGB Conc 29.7 g/dl (32-36); Mean Corpuscular Hemoglobin 25.4 pg (26-34); Mean Corpuscular Volume 85.8 fl (80-100); Platelet Count Result 494 k/mm3 (150-375); Red Blood Count 3.38 M/mm3 (4.2-5.4); White Blood Count 7.4 K/mm3 (4.5-10.0)
[2025-01-18 05:46] LABS: Alanine Aminotransferase 15 U/L (6-35); Albumin Level 3.3 g/dL (3.5-5.1); Alkaline Phosphatase 56 U/L (38-126); Anion Gap 6 mmol/L (4-12); Aspartate Amino Transferase 41 U/L (14-36); Bilirubin,Total 0.2 mg/dL (0.2-1.3); Blood Urea Nitrogen 6 mg/dL (7-17); Calcium 8.8 mg/dL (8.4-10.2); Carbon Dioxide 26 mmol/L (22-30); Chloride 105 mmol/L (98-107); Estimated CRCL calculation 104 ml/min; Estimated Glomerular Filt Rate > 60; Glucose 89 mg/dL (65-110); Potassium 4.1 mmol/L (3.4-5.0); Sodium 137 mmol/L (137-145); Total Protein 7.3 g/dL (6.3-8.2)
[2025-01-18] MEDS: FERROUS SULFATE 325 MG TABLET DR PO (08:01)
[2025-01-18] MEDS: THERAPEUTIC MULTIVITAMINS/MINERALS TAB (*BKC) 1 TABLET PO (08:01)
[2025-01-18] MEDS: DOCUSATE SODIUM 100 MG CAPSULE PO ×2 (08:01→16:46)
[2025-01-18 08:32] VITALS: BP 102/69; PULSE 77; RESP 16; TEMP 36.9; O2SAT 100
--- NOTE | 2025-01-18 09:26 | P.PNIM_ITS ---
Progress Note: A&P Assessment and Plan (1) Post-operative complication: Qualifiers: Procedure type: non-dermatologic Surgical complication system/body Area: subcutaneous tissue Surgical complication type: seroma Qualified Code(s): L76.34 - Postprocedural seroma of skin and subcutaneous tissue following other procedure Code(s): T81.9XXA - Unspecified complication of procedure, initial encounter Status: Acute Assessment and Plan: Recently underwent abdominoplasty in [facility] about two weeks ago. - CTA chest/abdomen/pelvis: No PE, acute cardiopulmonary disease, or acute intra-abdominal/pelvis process. Postoperative changes along the anterior abdominal wall including likely correction of prior rectus diastases with couple large loculated fluid collections in the deep subcutaneous tissues at the anterolateral left and right abdominal wall most likely representing a postoperative hematoma/seromas although differential would include abscess in the appropriate clinical setting. Started on Cefazolin in the ER, discontinued as does not appear infected given afebrile, no leukocytosis, lack of rim enhancement on imaging and the patients description of the prior drainage Plastics consulted per prior provider note and recommended IR consult for drain placement Discussed patient with IR Dr. Guthrie who does not recommend drainage at this time as this does not appear infected and more complications come with drainage. Dr. Rose discussed patient with Dr. Garner and states that he agrees to leave the collection alone at this time and continue to monitor. WBC remain within normal limits and she is afebrile. Slight warmth and redness noted to the lateral aspect of the incision on the left hip. No drainage. No signs of dehiscence. Repeat CT abdomen pelvis 01/16: Increasing size of the bilateral subcutaneous fluid collections over the left lower anterolateral and right lateral abdomen, with increased peripheral enhancement. These may represent postoperative seromas/hematomas versus developing abscess. Increasing dermal thickening and subcutaneous stranding over the bilateral lower anterolateral abdomen, correlate for signs of cellulitis. Started on IV Rocephin on 01/16 for possible cellulitis US guided drains placed. Gram stain with no WBC or organisms seen, culture obtained and results pending. Drains to the bilateral lower abdomen with thin serosanguineous drainage to the right and sanguinous drainage to the left. Plastics reconsulted as patient will require a drain placed by IR and this will need followed by plastics Continue drains and record output Abdominal binder at all times (2) Acute blood loss anemia: Code(s): D62 - Acute posthemorrhagic anemia Status: Acute Assessment and Plan: H/H 7.1/24.4 on admission, repeat this am shows H/H 7.9/26.2 Secondary to abdominal surgery and possible abdominal hematoma as seen on imaging above Received 2 units pRBC on admission Repeat H/H remains stable Denies any hematuria and hematochezia/melena Q.6 are H&H Iron low, TIBC normal, % saturation low, and ferritin WNL. Iron supplementation started. B12 and folate WNL Resolved. (3) Pre-syncope: Code(s): R55 - Syncope and collapse Status: Acute Assessment and Plan: Likely secondary to acute blood loss anemia related to post operative complicat ions Chest XR: No acute process Head CT: No evidence for acute intracranial hemorrhage or calvarial fracture Orthostatic BP unremarkable Denies dizziness/lightheadedness today. Time Spent With Patient Time with patient: 25 - 35 minutes Subjective Date/time seen: 01/18/25 09:26 Interval history: 44-year-old female who is 2 weeks postop from abdominal plasty presents the hospital with increased weakness and syncope. She states she had a abdominoplasty with liposuction on 12/[address] Garner at [facility]. She stayed in [place] for 8 days prior to returning to [place]. Following the procedure she had a drain placed that stayed in when returning home. She states that Dr. Garner wanted this removed on Sunday 01/07, however her appointment was made for the following Friday with her PCP. She states that the drain still had a decent amount of red, bloody output needing to be drained approximately 3-4 hours with 30 cc each time. She notes that the drain fell out on its own on 01/09 while she was cleaning her home. She was doing well until she started having increased dizziness/lightheadedness with ambulation. She also noted a 15 lbs weight gain over a 15 day period with noted bilateral lower extre mity edema and abdominal swelling. Denies any associated shortness of breath. Denies history of CHF. Patient is pleasant sitting on the side of her bed. She continues to endorse abdominal pain she states that this is much improved since the drain placement and related more to the insertion sites. Denies any chest pain, shortness a breath, palpitations, nausea/vomiting. Patient continues to deny any dizziness/lightheadedness. Review of Systems Review of Systems: All systems reviewed & are unremarkable except as noted in HPI and below Exam Narrative: AF HR 84 RR 16 SpO2 100 BP 119/76 General: female in no acute respiratory distress who is nontoxic appearing, sitting on side of bed. HEENT: Normocephalic. Atraumatic. Extraocular movement intact. Sclera clear and anicteric. No facial asymmetry. Chest: Lungs are clear to auscultation bilaterally. No wheezes or crackles. CV: Heart was regular rate and rhythm. Abd: Tender to palpation along the lower abdomen with surgical incision extending across from hip to hip, worse on L than R, significantly improved since yesterday. Nondistended. Positive bowel sounds. Drains to the bilateral lower abdomen with thin serosanguineous drainage to the right and sanguinous drainage to the left. Ext: No clubbing, cyanosis, or edema. DP pulses bilaterally. Neuro: Patient is alert and oriented x4. Speech is clear. Skin: Warm and dry. No rashes noted. Slight redness to the lateral left incision. No drainage. No signs of dehiscence. Objective Data Vital Signs Vital Signs: Vital Signs - 24 hr 01/17/25 10:38 01/17/25 14:06 01/17/25 14:21 Temperature 98.9 F 98.8 F Pulse Rate 80 77 Respiratory Rate 16 16 Blood Pressure 123/79 129/78 Pulse Oximetry 99 100 Oxygen Delivery Room Air 01/17/25 20:00 01/17/25 21:21 01/18/25 04:56 Temperature 97.7 F 97.8 F Pulse Rate 88 71 Respiratory Rate 20 20 Blood Pressure 128/67 101/61 Pulse Oximetry 100 100 Oxygen Delivery Room Air 01/18/25 08:32 Temperature 98.5 F Pulse Rate 77 Respiratory Rate 16 Blood Pressure 102/69 Pulse Oximetry 100 Oxygen Delivery Intake/Output Intake/Output: Intake & Output 01/15/25 01/16/25 01/17/25 01/18/25 23:59 23:59 23:59 23:59 Intake Total 1870 1280 1130 240 Output Total 300 875 180 Balance 1570 1280 255 60 Meds/Results Medications: Active Medications Generic Name Dose Route Start Last Admin Trade Name Freq PRN Reason Stop Dose Admin Acetaminophen 650 mg 01/13/25 18:47 01/15/25 09:14 Acetaminophen 325 Mg Tablet PO 650 mg Q4H PRN Administration Mild Pain (1-3) or Fever Hydrocodone Bitart/Acetaminophen 1 tab 01/13/25 18:47 01/17/25 23:35 Hydrocodone/Acetaminophen (*Crx) 5-325 Mg Tablet PO 1 tab Q4H PRN Administration Moderate Pain (4-6) Hydrocodone Bitart/Acetaminophen 1 tab 01/18/25 08:11 Hydrocodone/Acetaminophen (*Crx) 10-325 Mg Tablet PO Q6H PRN Pain Rated 7-10 Docusate Sodium 100 mg 01/14/25 09:00 01/18/25 08:01 Docusate Sodium 100 Mg Capsule PO 100 mg BID JAIMIE Administration Ferrous Sulfate 325 mg 01/15/25 09:00 01/18/25 08:01 Ferrous Sulfate [address] PO 325 mg DAILY JAIMIE Administration Ceftriaxone Sodium 1 gm/ 50 mls @ 100 mls/hr 01/16/25 18:00 01/17/25 17:31 Sodium Chloride IVPB 100 mls/hr Q24H JAIMIE Administration Morphine Sulfate 2 mg 01/13/25 18:47 01/17/25 21:28 Morphine Sulfate (*Crx) 2 Mg/Ml Inj IV PUSH 2 mg Q4H PRN Administration Pain Rated 7-10 Multivitamins/Calcium 1 tablet 01/14/25 09:00 01/18/25 08:01 Therapeutic Multivitamins/Minerals Tab (*Bkc) PO 1 tablet DAILY JAIMIE Administration Naloxone HCl 0.1 mg 01/13/25 18:47 Naloxone Hcl 0.4 Mg/Ml Vial IV PUSH Q2M PRN Opiate Reversal Radiology Results: ITS Impressions Chest X-Ray 01/13/25 13:03 IMPRESSION: No acute process. Head CT 01/13/25 13:34 IMPRESSION: No evidence for acute intracranial hemorrhage or calvarial fracture. Chest/Abdomen/Pelvis CTA 01/13/25 17:04 IMPRESSION: 1. No pulmonary embolism or other acute cardiopulmonary disease. 2. Postoperative changes along the anterior abdominal wall including likely correction of prior rectus diastases with couple large loculated fluid collect ions in the deep subcutaneous tissues at the anterolateral left and right abdominal wall most likely representing a postoperative hematoma/seromas although differential would include abscess in the appropriate clinical setting. 2. No acute intra-abdominal/pelvic process. Abdomen/Pelvis CT 01/16/25 17:03 IMPRESSION: Mild esophagitis/gastritis. Mild hepatomegaly. Increasing size of the bilateral subcutaneous fluid collections over the left lower anterolateral and right lateral abdomen, with increased peripheral enhancement. These may represent postoperative seromas/hematomas versus developing abscess. Increasing dermal thickening and subcutaneous stranding over the bilateral lower anterolateral abdomen, correlate for signs of cellulitis. Drainage Catheter Insertion 01/17/25 14:34 IMPRESSION: 1. Successful ultrasound-guided left lower quadrant anterior abdominal wall percutaneous abscess drainage catheter placement. 2. Successful ultrasound-guided right lower quadrant anterior abdominal wall percutaneous abscess drainage catheter placement. 3. 20 mL bile of reddish-brown fluid collection was aspirated from each fluid collection and sent to the lab for Gram stain and aerobic and anaerobic cultures. 3. The catheter will be managed by Dr. Fernandez. Drainage Catheter Insertion 01/17/25 14:34 IMPRESSION: 1. Successful ultrasound-guided left lower quadrant anterior abdominal wall percutaneous abscess drainage catheter placement. 2. Successful ultrasound-guided right lower quadrant anterior abdominal wall percutaneous abscess drainage catheter placement. 3. 20 mL bile of reddish-brown fluid collection was aspirated from each fluid collection and sent to the lab for Gram stain and aerobic and anaerobic cultures. 3. The catheter will be managed by Dr. Fernandez. Labs Labs: Laboratory Results - last 24 hr 01/18/25 04:47 WBC 7.4 RBC 3.38 L Hgb 8.6 L Hct 29.0 L MCV 85.8 MCH 25.4 L MCHC 29.7 L RDW 17.6 H Plt Count 494 H MPV 8.8 Sodium 137 Potassium 4.1 Chloride 105 Carbon Dioxide 26 Anion Gap 6 BUN 6 L Creatinine 0.69 L Estim Creat Clear Calc 104 Estimated GFR > 60 Glucose 89 Calcium 8.8 Total Bilirubin 0.2 AST 41 H ALT 15 Alkaline Phosphatase 56 Total Protein 7.3 Albumin 3.3 L Quality VTE Prophylaxis VTE prophylaxis: mechanical ordered
[2025-01-18 10:46] VITALS: BP 116/67; PULSE 91; RESP 16; TEMP 36.7; O2SAT 99
[2025-01-18 13:53] VITALS: BP 119/76; PULSE 84; RESP 16; TEMP 36.6; O2SAT 100
[2025-01-18] MEDS: cefTRIAXone 1 GM in SODIUM CHLORIDE 0.9% IV 50 ML 100 ML IVPB (17:26)
[2025-01-18 20:00] VITALS: PULSE 80; RESP 20; O2SAT 99
[2025-01-18 20:40] VITALS: BP 124/67; PULSE 88; RESP 20; TEMP 36.5; O2SAT 100
[2025-01-19] MEDS: HYDROcodone/acetaminophen (*CRX) 10-325 MG TABLET 1 TAB PO ×2 (00:10→08:46)
[2025-01-19 03:15] VITALS: BP 114/66; PULSE 80; RESP 20; TEMP 36.4; O2SAT 99
[2025-01-19 05:11] LABS: Hematocrit 30.4 % (37.0-47.0); Hemoglobin 8.8 g/dL (12.0-15.0); Mean Corpuscular HGB Conc 28.9 g/dl (32-36); Mean Corpuscular Hemoglobin 24.9 pg (26-34); Mean Corpuscular Volume 85.9 fl (80-100); Platelet Count Result 486 k/mm3 (150-375); Red Blood Count 3.54 M/mm3 (4.2-5.4); White Blood Count 6.5 K/mm3 (4.5-10.0)
[2025-01-19 05:46] LABS: Alanine Aminotransferase 15 U/L (6-35); Albumin Level 3.6 g/dL (3.5-5.1); Alkaline Phosphatase 57 U/L (38-126); Anion Gap 5 mmol/L (4-12); Aspartate Amino Transferase 26 U/L (14-36); Bilirubin,Total 0.3 mg/dL (0.2-1.3); Blood Urea Nitrogen 6 mg/dL (7-17); Calcium 8.7 mg/dL (8.4-10.2); Carbon Dioxide 26 mmol/L (22-30); Chloride 101 mmol/L (98-107); Estimated CRCL calculation 110 ml/min; Estimated Glomerular Filt Rate > 60; Glucose 91 mg/dL (65-110); Potassium 3.7 mmol/L (3.4-5.0); Sodium 132 mmol/L (137-145); Total Protein 7.6 g/dL (6.3-8.2)
--- NOTE | 2025-01-19 07:54 | WPDPN ---
Progress Note: A&P Assessment and Plan (1) Post-operative complication: Qualifiers: Surgical complication system/body Area: subcutaneous tissue Surgical complication type: seroma Procedure type: non-dermatologic Qualified Code(s): L76.34 - Postprocedural seroma of skin and subcutaneous tissue following other procedure Code(s): T81.9XXA - Unspecified complication of procedure, initial encounter Status: Acute Assessment and Plan: 44yo female ~3 weekd s/p abdominoplasty and liposuction in [place] with post-op seroma/hematoma s/p IR drain placement x2 doing well drain outputs decreased greatly after first day and pt asymptomatic after transfusion and labs stable reviwed impression and Dx and hopeful expectation for continued recovery Plan: 1) advise discharge today with f/u with plastics next friday 2) cont abdominal binder at all times 3) record drain outputs every 24 hours and bring this record to f/u visit 4) antibiotic prophylxaxis per primary Subjective Date/time seen: 01/19/25 07:54 pt seen and examined at bedside. pt reports doing well. patient compliant with abdominal binder. no new concerns Exam Narrative: abdominal binder in place. incision well healed. abdominal fulness improved. drains and their dressing in place and c/d/i and functioning with light serosanguinous drainage Objective Data Vital Signs Vital Signs: Vital Signs - 24 hr 01/18/25 08:01 01/18/25 08:32 01/18/25 10:46 Temperature 36.9 C 36.7 C Pulse Rate 77 91 Respiratory Rate 16 16 Blood Pressure 102/69 116/67 Pulse Oximetry 100 99 Oxygen Delivery Room Air 01/18/25 13:53 01/18/25 20:00 01/18/25 20:40 Temperature 36.6 C 36.5 C Pulse Rate 84 80 88 Respiratory Rate 16 20 20 Blood Pressure 119/76 124/67 Pulse Oximetry 100 99 100 Oxygen Delivery Room Air 01/19/25 03:15 Temperature 36.4 C Pulse Rate 80 Respiratory Rate 20 Blood Pressure 114/66 Pulse Oximetry 99 Oxygen Delivery Intake/Output Intake/Output: Intake & Output 01/16/25 01/17/25 01/18/25 01/19/25 23:59 23:59 23:59 23:59 Intake Total 1280 1180 1170 540 Output Total 875 180 125 Balance 1280 305 990 415 Meds/Results Medications: Active Medications Generic Name Dose Route Start Last Admin Trade Name Freq PRN Reason Stop Dose Admin Acetaminophen 650 mg 01/13/25 18:47 01/15/25 09:14 Acetaminophen 325 Mg Tablet PO 650 mg Q4H PRN Administration Mild Pain (1-3) or Fever Hydrocodone Bitart/Acetaminophen 1 tab 01/13/25 18:47 01/17/25 23:35 Hydrocodone/Acetaminophen (*Crx) 5-325 Mg Tablet PO 1 tab Q4H PRN Administration Moderate Pain (4-6) Hydrocodone Bitart/Acetaminophen 1 tab 01/18/25 08:11 01/19/25 00:10 Hydrocodone/Acetaminophen (*Crx) 10-325 Mg Tablet PO 1 tab Q6H PRN Administration Pain Rated 7-10 Docusate Sodium 100 mg 01/14/25 09:00 01/18/25 16:46 Docusate Sodium 100 Mg Capsule PO 100 mg BID JAIMIE Administration Ferrous Sulfate 325 mg 01/15/25 09:00 01/18/25 08:01 Ferrous Sulfate [address] PO 325 mg DAILY JAIMIE Administration Ceftriaxone Sodium 1 gm/ 50 mls @ 100 mls/hr 01/16/25 18:00 01/18/25 17:56 Sodium Chloride IVPB Infused Q24H JAIMIE Infusion Morphine Sulfate 2 mg 01/13/25 18:47 01/17/25 21:28 Morphine Sulfate (*Crx) 2 Mg/Ml Inj IV PUSH 2 mg Q4H PRN Administration Pain Rated 7-10 Multivitamins/Calcium 1 tablet 01/14/25 09:00 01/18/25 08:01 Therapeutic Multivitamins/Minerals Tab (*Bkc) PO 1 tablet DAILY JAIMIE Administration Naloxone HCl 0.1 mg 01/13/25 18:47 Naloxone Hcl 0.4 Mg/Ml Vial IV PUSH Q2M PRN Opiate Reversal Radiology Results: ITS Impressions Chest X-Ray 01/13/25 13:03 IMPRESSION: No acute process. Head CT 01/13/25 13:34 IMPRESSION: No evidence for acute intracranial hemorrhage or calvarial fracture. Chest/Abdomen/Pelvis CTA 01/13/25 17:04 IMPRESSION: 1. No pulmonary embolism or other acute cardiopulmonary disease. 2. Postoperative changes along the anterior abdominal wall including likely correction of prior rectus diastases with couple large loculated fluid collections in the deep subcutaneous tissues at the anterolateral left and right abdominal wall most likely representing a postoperative hematoma/seromas although differential would include abscess in the appropriate clinical setting. 2. No acute intra-abdominal/pelvic process. Abdomen/Pelvis CT 01/16/25 17:03 IMPRESSION: Mild esophagitis/gastritis. Mild hepatomegaly. Increasing size of the bilateral subcutaneous fluid collections over the left lower anterolateral and right lateral abdomen, with increased peripheral enhancement. These may represent postoperative seromas/hematomas versus developing abscess. Increasing dermal thickening and subcutaneous stranding over the bilateral lower anterolateral abdomen, correlate for signs of cellulitis. Drainage Catheter Insertion 01/17/25 14:34 IMPRESSION: 1. Successful ultrasound-guided left lower quadrant anterior abdominal wall percutaneous abscess drainage catheter placement. 2. Successful ultrasound-guided right lower quadrant anterior abdominal wall percutaneous abscess drainage catheter placement. 3. 20 mL bile of reddish-brown fluid collection was aspirated from each fluid collection and sent to the lab for Gram stain and aerobic and anaerobic cultures. 3. The catheter will be managed by Dr. Fernandez. Drainage Catheter Insertion 01/17/25 14:34 IMPRESSION: 1. Successful ultrasound-guided left lower quadrant anterior abdominal wall percutaneous abscess drainage catheter placement. 2. Successful ultrasound-guided right lower quadrant anterior abdominal wall percutaneous abscess drainage catheter placement. 3. 20 mL bile of reddish-brown fluid collection was aspirated from each fluid collection and sent to the lab for Gram stain and aerobic and anaerobic cultures. 3. The catheter will be managed by Dr. Fernandez. Labs Labs: Laboratory Results - last 24 hr 01/19/25 04:47 WBC 6.5 RBC 3.54 L Hgb 8.8 L Hct 30.4 L MCV 85.9 MCH 24.9 L MCHC 28.9 L RDW 17.6 H Plt Count 486 H MPV 8.6 Sodium 132 L Potassium 3.7 Chloride 101 Carbon Dioxide 26 Anion Gap 5 BUN 6 L Creatinine 0.65 L Estim Creat Clear Calc 110 Estimated GFR > 60 Glucose 91 Calcium 8.7 Total Bilirubin 0.3 AST 26 ALT 15 Alkaline Phosphatase 57 Total Protein 7.6 Albumin 3.6
[2025-01-19] MEDS: FERROUS SULFATE 325 MG TABLET DR PO (08:45)
[2025-01-19] MEDS: DOCUSATE SODIUM 100 MG CAPSULE PO (08:45)
[2025-01-19] MEDS: THERAPEUTIC MULTIVITAMINS/MINERALS TAB (*BKC) 1 TABLET PO (08:46)
--- NOTE | 2025-01-19 09:58 | P.DS_ITS ---
DS: Admitting Diagnosis Discharge Date 01/19/2025 Admitting Diagnosis Postop weakness and syncope DS: Discharge Diagnosis Discharge Diagnosis (1) Post-operative complication: Qualifiers: Procedure type: non-dermatologic Surgical complication system/body Area: subcutaneous tissue Surgical complication type: seroma Qualified Code(s): L76.34 - Postprocedural seroma of skin and subcutaneous tissue following other procedure Code(s): T81.9XXA - Unspecified complication of procedure, initial encounter Status: Acute Assessment and Plan: Recently underwent abdominoplasty in [facility] about two weeks ago. - CTA chest/abdomen/pelvis: No PE, acute cardiopulmonary disease, or acute intra-abdominal/pelvis process. Postoperative changes along the anterior abdominal wall including likely correction of prior rectus diastases with couple large loculated fluid collections in the deep subcutaneous tissues at the anterolateral left and right abdominal wall most likely representing a postoperative hematoma/seromas although differential would include abscess in the appropriate clinical setting. Started on Cefazolin in the ER, discontinued as does not appear infected given afebrile, no leukocytosis, lack of rim enhancement on imaging and the patients description of the prior drainage Plastics consulted per prior provider note and recommended IR consult for drain placement Discussed patient with IR Dr. Guthrie who does not recommend drainage at this time as this does not appear infected and more complications come with drainage. Dr. Rose discussed patient with Dr. Graner and states that he agrees to leave the collection alone at this time and continue to monitor. WBC remain within normal limits and she is afebrile. Slight warmth and redness noted to the lateral aspect of the incision on the left hip. No drainage. No signs of dehiscence. Repeat CT abdomen pelvis 01/16: Increasing size of the bilateral subcutaneous fluid collections over the left lower anterolateral and right lateral abdomen, with increased peripheral enhancement. These may represent postoperative ser omas/hematomas versus developing abscess. Increasing dermal thickening and subcutaneous stranding over the bilateral lower anterolateral abdomen, correlate for signs of cellulitis. Started on IV Rocephin on 01/16 for possible cellulitis US guided drains placed. Gram stain with no WBC or organisms seen, culture obtained and results pending. Drains to the bilateral lower abdomen with thin serosanguineous drainage to the right and sanguinous drainage to the left. Plastics reconsulted as patient will require a drain placed by IR and this will need followed by plastics Continue drains and record output Abdominal binder at all times (2) Acute blood loss anemia: Code(s): D62 - Acute posthemorrhagic anemia Status: Acute Assessment and Plan: H/H 7.1/24.4 on admission, repeat this am shows H/H 7.9/26.2 Secondary to abdominal surgery and possible abdominal hematoma as seen on imaging above Received 2 units pRBC on admission Repeat H/H remains stable Denies any hematuria and hematochezia/melena Q.6 are H&H Iron low, TIBC normal, % saturation low, and ferritin WNL. Iron supplementation started. B12 and folate WNL Resolved. (3) Pre-syncope: Code(s): R55 - Syncope and collapse Status: Acute Assessment and Plan: Likely secondary to acute blood loss anemia related to post operative complications Chest XR: No acute process Head CT: No evidence for acute intracranial hemorrhage or calvarial fracture Orthostatic BP unremarkable Denies dizziness/lightheadedness today. (4) Hematoma of abdominal wall: Qualifiers: Encounter type: initial encounter Qualified Code(s): S30.1XXA - Contusion of abdominal wall, initial encounter Code(s): S30.1XXA - Contusion of abdominal wall, initial encounter Status: Acute DS: Summary Hospital Course Reason for hospitalization: Postop weakness and syncope Hospital Course: 44-year-old female who is 2 weeks postop from abdominal plasty presents the hospital with increased weakness and syncope. Patient states that about 2 weeks ago she was on floor diet to get a abdominal plasty and had 11 lb of skin removed. She states that she lost 100 lb with diet and exercise. Since this s urgery she states that she has gained about 15 lb. She states that she has not been wearing her abdominal binder causes poorly fitting cutting into her butt and thighs. She states that she knows that her abdomen is getting firm and is more painful now. Today she was sitting on the toilet and she was unable to get up. She had to call for help. And her son had called EMS. She denies nausea or vomiting. She did state that she was moving around a lot yesterday cleaning the house. Lab work shows leukocytosis at 10.8, hemoglobin is 7.1 patient states she thinks she was at around 11 postop, ESR over 140, a D-dimer of 1.69, sodium of 135, creatinine of 0.66, C reactive protein of 3.4, UA with trace leukocyte esterase. Had CT shows no acute process. Chest x-ray shows no acute. CT chest abdomen pelvis negative for PE, Postoperative changes along the anterior abdominal wall including likely correction of prior rectus diastases with couple large loculated fluid collections in the deep subcutaneous tissues at the anterolateral left and right abdominal wall most likely representing a postoperative hematoma/seromas although differential would include abscess in the appropriate clinical setting. Plastics is consulted recommending IR. Plastic surgery consulted regarding hematoma of abdominal wall. Recommended continuing drains and recording output, applying abdominal binder at all times, reviewing activity restrictions and he monitoring for the next 24 hours. Plastic surgery once again saw the patient on 01/19 and was advised for discharge at this time with follow-up with Plastic surgery next Friday. He also recommended continuing abdominal binder at all times and regarding drain outputs every 24 hours and to bring this record to the follow-up appointment. Patient is otherwise hemodynamically stable with stable H&H, we will continue folate supplementation and advised that she follow-up in the outpatient setting with her PCP and Plastic surgery. Patient amenable to this plan, discharge home at this. She will be discharged on 5 day course of Augmentin for abdominal wall cellulitis. Status at Discharge Functional status at discharge: independent ambulation Overall status at discharge: patient is back to baseline Time Spent with Patient Time attestation: Total time spent providing and/or coordinating discharge services: 41 Exam Narrative: AF HR 80 RR 20 SpO2 100 BP 114/66 General: female in no acute respiratory distress who is nontoxic appearing, sitting on side of bed. HEENT: Normocephalic. Atraumatic. Extraocular movement intact. Sclera clear and anicteric. No facial asymmetry. Chest: Lungs are clear to auscultation bilaterally. No wheezes or crackles. CV: Heart was regular rate and rhythm. Abd: Tender to palpation along the lower abdomen with surgical incision extending across from hip to hip, worse on L than R, significantly improved since yesterday. Nondistended. Positive bowel sounds. Drains to the bilateral lower abdomen with thin serosanguineous drainage to the right and sanguinous drainage to the left. Ext: No clubbing, cyanosis, or edema. DP pulses bilaterally. Neuro: Patient is alert and oriented x4. Speech is clear. Skin: Warm and dry. No rashes noted. Slight redness to the lateral left incision. No drainage. No signs of dehiscence. DS: Data Data Completed and Pending Labs on day of discharge: Labs from last 24 hours 01/19/25 04:47 WBC 6.5 RBC 3.54 L Hgb 8.8 L Hct 30.4 L MCV 85.9 MCH 24.9 L MCHC 28.9 L RDW 17.6 H Plt Count 486 H MPV 8.6 Sodium 132 L Potassium 3.7 Chloride 101 Carbon Dioxide 26 Anion Gap 5 BUN 6 L Creatinine 0.65 L Estim Creat Clear Calc 110 Estimated GFR > 60 Glucose 91 Calcium 8.7 Total Bilirubin 0.3 AST 26 ALT 15 Alkaline Phosphatase 57 Total Protein 7.6 Albumin 3.6 Preliminary micro results at discharge 01/17/25 12:13 Gram Stain - Preliminary Abdomen 01/13/25 18:25 Blood Culture - Preliminary Blood 01/13/25 18:25 Blood Culture - Preliminary Blood Discharge Plan Discharge Attending physician on discharge: Svitlana Olmedo Consulting providers: Frederic Zuñiga; Archana Fernandez; Dion Jurado Discharging Clinician: Archana Fernandez Anticipated Discharge Date/Time: 01/19/25 09:56 Patient Disposition: Home Activity: as tolerated Diet: as tolerated and regular Discharge Instructions: Discharge disposition: Home Take medications as prescribed Monitor blood pressures Take caution while standing, rising, or moving Change positions slowly taking a break between each position change If you standing feel dizzy sit back down and take a break Encouraged to continue with yearly vaccinations Return to the emergency department if he developed sudden shortness of breath, chest pain, nausea, vomiting, upset stomach or intractable diarrhea Return to the emergency department if you develop fever greater than 100.5 Follow-up with the primary care physician within 1-2 weeks Follow-up with Dr. Frederic Zuñiga with plastic surgery next week for management of your abdominal binder and drain management Thank you for choosing [facility] for your healthcare needs Patient Language: [place] Stand Alone Forms: General Discharge Information Follow-up/Referrals: Frederic Zuñiga MD [Physician] - Suzanne,MD Rigoberto [Primary Care Provider] - 1 Week Discharge Medications: New ferrous sulfate 325 mg (65 mg iron) tablet 325 mg PO DAILY Qty: 30 0RF acetaminophen 500 mg tablet 500 mg PO Q6H PRN (Reason: pain) 5 Days Qty: 20 0RF hydrocodone-acetaminophen 5-325 mg Tablet 1 tablet PO Q4H PRN (Reason: Moderate Pain (4-6)) Qty: 15 0RF amoxicillin-pot clavulanate 875-125 mg tablet 1 tablet PO Q12H 5 Days Qty: 10 0RF Continued uvdbqccozede-Px-pfgr-minerals 18-0.4 mg tablet 1 tablet PO DAILY Date of admission: 01/15/25 14:16 Primary Care Provider: Suzanne,Rigoberto Admitting Provider: Zonia Valderrama Attending physician on admission: Zonia Valderrama Condition: Stable Quality VTE Prophylaxis VTE prophylaxis: mechanical ordered
== END 2025-01-19 11:40 | disposition home or self-care (01) | DRG 920 ==
LOC: ANHED 19:03 → ANH2MED 20:49
PROVIDERS: Nurse Practitioner Gerontology; Student in an Organized Health Care Education/Training Program; Admitting Provider Family Medicine; Emergency Provider Physician Assistant; PCP Family Medicine; Visit Provider Physician Assistant
DX: L76.34 Postprocedural seroma of skin and subcutaneous tissue following other procedure (principal); D62 Acute posthemorrhagic anemia; L03.311 Cellulitis of abdominal wall; E87.70 Fluid overload, unspecified; R55 Syncope and collapse
CPT/HCPCS: 36415; 36430; 70450; 71046; 71275; 74177; 75989; 80048; 80053; 81001; 81025; 82607; 82728; 82746; 83540; 83550; 85014; 85018; 85025; 85027; 85380; 85610; 85652; 85730; 86140; 86850; 86900; 86901; 86923; 87040; 87070; 87075; 87205; 93005; 96361; 96365; 96375; 96376; 99285; A9270; C1729; G0378; J0690; J0696; J1938; J2270; J2405; J7030; J7050; P9016; Q9967